=== PATIENT | female | born 1970 | race Caucasian/White ===

== ENCOUNTER → 2017-03-16 | Outpatient (CLI) | payer OTHER ==
--- NOTE | 2017-03-16 08:55 | REPMRS ---
Patient History The patient states she had a clinical breast exam in January 2017. No known family history of cancer. Digital Mammo Diagnostic Bilateral: March 16, 2017 - Exam #: [id number] Bilateral CC and MLO view(s) were taken. Technologist: Reina Lamb, Technologist Prior study comparison: February 10, 2016, bilateral digital mammo screening bilat performed at [facility]. September 27, 2013, left breast digital mammo diagnostic unilateral performed at [facility]. FINDINGS: There are scattered fibroglandular densities. There has been no change in the appearance of the mammogram from the prior studies. There is a mild amount of residual fibroglandular tissue which is fairly symmetric. There is no interval development of dominant mass, architectural distortion, or clustered microcalcification suggestive of malignancy. ASSESSMENT: BI-RADS/ACR category 1 mammogram. Negative. Recommendation Routine screening mammogram in 1 year (for women over age 40). This mammogram was interpreted with the aid of an FDA-approved computer-aided dectection system. Electronically Signed By: Michael Ritter MD 03/16/17 0855
[2017-03-16 10:32] LABS: FOLLICLE STIMULATING HORMONE 1.8 mIU/mL; PROLACTIN 7.3 NG/ML
== END ==
LOC: M LAB 08:16
PROVIDERS: ATTEND Nurse Practitioner Family
DX: Z12.31 Encounter for screening mammogram for malignant neoplasm of breast (principal); N64.4 Mastodynia
CPT/HCPCS: 36415; 83001; 83002; 84146; G0204

== ENCOUNTER → 2017-09-27 | Outpatient (REF) | payer OTHER ==
[2017-09-27 12:22] LABS: BASO # 0.1 10^3/uL (0.0-0.2); BASO % 0.7 % (0.0-1.0); EOS # 0.2 10^3/uL (0.0-0.50); EOS % 2.9 % (0.0-3.0); HEMATOCRIT 36.2 % (36.0-47.0); HEMOGLOBIN 11.6 g/dl (12.0-16.0); IMMATURE GRANULOCYTE % 0.4 % (0-0); LYMPH # 2.5 10^3/uL (1.5-4.5); LYMPH % 36.2 % (24.0-44.0); MEAN CORPUSCULAR HEMOGLOBIN 29.1 pg (27.0-33.0); MEAN CORPUSCULAR VOLUME 90.7 fl (80.0-96.0); MONO # 0.6 10^3/uL (0.0-0.8); MONO % 8.2 % (0.0-5.0); NEUTROPHILS # 3.5 10^3/uL (1.8-7.7); NEUTROPHILS % 51.6 % (36.0-66.0); PLATELET COUNT, AUTOMATED 332 10^3/uL (150-450); RED BLOOD COUNT 3.99 10^6/uL (4.00-5.40); RED CELL DISTRIBUTION WIDTH 14.6 % (11.5-14.5); WHITE BLOOD COUNT 6.8 10^3/uL (4.0-10.0)
[2017-09-27 12:55] LABS: ALBUMIN 3.5 GM/DL (3.2-5.2); ALBUMIN/GLOBULIN RATIO 0.97 (1.00-1.93); ALKALINE PHOSPHATASE 67 U/L (45-117); ALT/SGPT 42 U/L (12-78); ANION GAP 8 MEQ/L (8-16); AST/SGOT 38 U/L (7-37); BILIRUBIN,TOTAL 0.3 MG/DL (0.2-1.0); BLOOD UREA NITROGEN 12 MG/DL (7-18); CALCIUM LEVEL 8.7 MG/DL (8.5-10.1); CARBON DIOXIDE LEVEL 29 MEQ/L (21-32); CHLORIDE LEVEL 103 MEQ/L (98-107); CREATININE FOR GFR 0.71 MG/DL (0.55-1.02); FREE T4 1.14 NG/DL (0.76-1.46); GLOMERULAR FILTRATION RATE > 60.0 (>58); GLUCOSE, FASTING 83 MG/DL (70-105); POTASSIUM SERUM 4.4 MEQ/L (3.5-5.1); SODIUM LEVEL 140 MEQ/L (136-145); TOTAL PROTEIN 7.1 GM/DL (6.4-8.2)
[2017-09-27 13:16] LABS: ESTIMATED AVERAGE GLUCOSE 134 MG/DL (60-110); HEMOGLOBIN A1c 6.3 %
== END ==
LOC: M SFHCPLAZ 08:02
DX: F32.9 Major depressive disorder, single episode, unspecified (principal); E28.2 Polycystic ovarian syndrome; E03.9 Hypothyroidism, unspecified

== ENCOUNTER 2018-01-08 07:07 | Emergency (ER) | payer SELFPAY, OTHER | END 2018-01-08 07:57 | disposition home or self-care (01) | LOC: M ED 07:07 | DX: K08.89 Other specified disorders of teeth and supporting structures (principal); E03.9 Hypothyroidism, unspecified; E28.2 Polycystic ovarian syndrome; F41.9 Anxiety disorder, unspecified; F33.9 Major depressive disorder, recurrent, unspecified; Z79.899 Other long term (current) drug therapy; Z79.890 Hormone replacement therapy | CPT/HCPCS: 99282 ==

== ENCOUNTER → 2018-06-01 | Outpatient (REF) | payer OTHER | LOC: M SFHCPLAZ 07:59 | DX: E03.9 Hypothyroidism, unspecified (principal); R73.09 Other abnormal glucose ==

== ENCOUNTER → 2018-06-11 | Outpatient (CLI) | payer OTHER ==
[2018-06-11 17:53] LABS: ALBUMIN 3.9 GM/DL (3.2-5.2); ALBUMIN/GLOBULIN RATIO 1.15 (1.00-1.93); ALKALINE PHOSPHATASE 74 U/L (45-117); ALT/SGPT 37 U/L (12-78); ANION GAP 10 MEQ/L (8-16); AST/SGOT 26 U/L (7-37); BILIRUBIN,TOTAL 0.2 MG/DL (0.2-1.0); BLOOD UREA NITROGEN 15 MG/DL (7-18); CALCIUM LEVEL 9.2 MG/DL (8.5-10.1); CARBON DIOXIDE LEVEL 25 MEQ/L (21-32); CHLORIDE LEVEL 103 MEQ/L (98-107); CREATININE FOR GFR 0.79 MG/DL (0.55-1.30); FREE T4 1.07 NG/DL (0.76-1.46); GLOMERULAR FILTRATION RATE > 60.0 (>58); GLUCOSE, FASTING 106 MG/DL (70-100); SODIUM LEVEL 138 MEQ/L (136-145); THYROID STIMULATING HORMONE 0.834 uIU/ML (0.358-3.740); TOTAL PROTEIN 7.3 GM/DL (6.4-8.2)
== END ==
LOC: M WUC 14:18
DX: R73.09 Other abnormal glucose (principal); E03.9 Hypothyroidism, unspecified
CPT/HCPCS: 84443

== ENCOUNTER → 2018-06-18 | Outpatient (CLI) | payer OTHER | LOC: M RAD 08:18 | DX: M26.622 Arthralgia of left temporomandibular joint (principal) | CPT/HCPCS: 70330 ==

== ENCOUNTER → 2018-11-13 | Outpatient (REF) | payer MEDICAID ==
[~2018-11-13] MED LIST: ALPR0.25; AMOX500C PO; CITA40TA4; LEVO75TA4; LORA-243; METF500T4; NORCOTAB PO; TRAZ1TAB14
[2018-11-13 15:03] LABS: HEMOGLOBIN A1c 6.8 %
[2018-11-13 15:21] LABS: ALBUMIN 3.7 GM/DL (3.2-5.2); ALT/SGPT 39 U/L (12-78); BILIRUBIN,TOTAL 0.2 MG/DL (0.2-1.0); BLOOD UREA NITROGEN 10 MG/DL (7-18); CALCIUM LEVEL 8.6 MG/DL (8.5-10.1); CARBON DIOXIDE LEVEL 28 MEQ/L (21-32); CHLORIDE LEVEL 101 MEQ/L (98-107); CHOLESTEROL LEVEL 262 MG/DL (<200); CHOLESTEROL RISK RATIO 5.346 (<5); CREATININE FOR GFR 0.71 MG/DL (0.55-1.30); GLOMERULAR FILTRATION RATE > 60.0 (>58); GLUCOSE, FASTING 110 MG/DL (70-100); HDL CHOLESTEROL 49 MG/DL (>40); LDL CHOLESTEROL 142 MG/DL (<100); NON-HDL-C 213 MG/DL; POTASSIUM SERUM 4.3 MEQ/L (3.5-5.1); SODIUM LEVEL 137 MEQ/L (136-145); TOTAL PROTEIN 7.3 GM/DL (6.4-8.2); TRIGLYCERIDES LEVEL 353 MG/DL (<150)
== END ==
LOC: M SFHCPLAZ 11:45
PROVIDERS: ATTEND Nurse Practitioner Family
DX: E03.9 Hypothyroidism, unspecified (principal); R73.09 Other abnormal glucose; Z68.37 Body mass index [BMI] 37.0-37.9, adult

== ENCOUNTER → 2018-11-16 | Outpatient (CLI) | payer MEDICAID ==
--- NOTE | 2018-11-16 11:55 | REPMRS ---
Patient History The patient states she had a clinical breast exam in 2017. No known family history of cancer. Digital Mammo Screening Bilat: November 16, 2018 - Exam #: [id number] Bilateral CC and MLO view(s) were taken. Technologist: Rylee Noble Technologist Prior study comparison: March 16, 2017, digital mammo diagnostic bilateral performed at [facility]. February 10, 2016, bilateral digital mammo screening bilat performed at [facility]. FINDINGS: There are scattered fibroglandular densities. There has been no change in the appearance of the mammogram from the prior studies. There is a mild amount of residual fibroglandular tissue which is fairly symmetric. There is no interval development of dominant mass, architectural distortion, or clustered microcalcification suggestive of malignancy. Scattered lymph nodes are seen in the right axilla. There is a benign appearing intramammary node in the upper outer quadrant of the left breast. 3-D tomosynthesis shows no additional findings. The patient's Tyrer-Cuzick lifetime risk assessment score is 10.7 %. No significant changes when compared with prior studies. Assessment: BI-RADS/ACR category 2 mammogram. Benign Findings. Recommendation Routine screening mammogram in 1 year (for women over age 40). This mammogram was interpreted with the aid of an FDA-approved computer-aided dectection system. A. Negative x-ray reports should not delay biopsy if a dominant or clinically suspicious mass is present. B. Four to eight percent of cancers are not identified by mammography. C. Adenosis and dense breast may obscure an underlying neoplasm. Electronically Signed By: Cesario Milligan MD 11/16/18 4027
--- NOTE | 2018-11-16 12:09 | REP ---
LUMBAR SPINE, FIVE VIEWS: HISTORY: Back pain. There is on acute fracture or subluxation. The L3-4 and L4-5 intervertebral discs are decreased in height consistent with disc degeneration. There is narrowing of the L4-5 and L5-S1 facet joints. IMPRESSION: Degenerative change as described above. Electronically Signed by Reuben Loco MD 11/16/2018 12:11 P
== END ==
LOC: M RAD 10:29
PROVIDERS: ATTEND Nurse Practitioner Family
DX: Z12.31 Encounter for screening mammogram for malignant neoplasm of breast (principal)

== ENCOUNTER → 2019-03-30 | Outpatient (CLI) | payer OTHER ==
[~2019-03-30] MED LIST changes: +HYDR-3715 PO; -NORCOTAB PO
[2019-03-30 13:24] LABS: ALBUMIN 3.8 GM/DL (3.2-5.2); ALT/SGPT 34 U/L (12-78); BILIRUBIN,TOTAL 0.4 MG/DL (0.2-1.0); BLOOD UREA NITROGEN 11 MG/DL (7-18); CALCIUM LEVEL 8.8 MG/DL (8.5-10.1); CARBON DIOXIDE LEVEL 28 MEQ/L (21-32); CHLORIDE LEVEL 104 MEQ/L (98-107); CHOLESTEROL LEVEL 157 MG/DL (<200); CHOLESTEROL RISK RATIO 2.754 (<5); CREATININE FOR GFR 0.82 MG/DL (0.55-1.30); GLOMERULAR FILTRATION RATE > 60.0 (>58); GLUCOSE, FASTING 97 MG/DL (70-100); HDL CHOLESTEROL 57 MG/DL (>40); LDL CHOLESTEROL 68 MG/DL (<100); NON-HDL-C 100 MG/DL; POTASSIUM SERUM 4.5 MEQ/L (3.5-5.1); SODIUM LEVEL 140 MEQ/L (136-145); TOTAL PROTEIN 6.9 GM/DL (6.4-8.2); TRIGLYCERIDES LEVEL 161 MG/DL (<150)
[2019-03-30 13:27] LABS: HEMOGLOBIN A1c 6.7 %
[2019-03-30 13:45] LABS: CREATININE, URINE 75.4 MG/DL; MAU/CREAT RATIO 6.6 MCG/MG (0.0-30.0)
== END ==
LOC: M WUC 09:58
PROVIDERS: ATTEND Nurse Practitioner Family
DX: E78.2 Mixed hyperlipidemia (principal); E11.9 Type 2 diabetes mellitus without complications; E03.9 Hypothyroidism, unspecified

== ENCOUNTER → 2019-05-29 | Outpatient (REF) | payer OTHER ==
[~2019-05-29] MED LIST changes: +METF-791; -METF500T4
== END ==
LOC: M SFHCPLAZ 07:41
PROVIDERS: ATTEND Nurse Practitioner Family
DX: E03.9 Hypothyroidism, unspecified (principal)

== ENCOUNTER → 2019-09-11 | Outpatient (REF) | payer OTHER ==
[2019-09-11 12:10] LABS: HEMOGLOBIN A1c 6.8 %
== END ==
LOC: M SFHCPLAZ 10:29
PROVIDERS: ATTEND Family Medicine
DX: E11.9 Type 2 diabetes mellitus without complications (principal)

== ENCOUNTER 2020-02-21 10:40 | Emergency (ER) | payer OTHER ==
[~2020-02-21] VITALS: Ht 160 cm; Wt 101.0 kg
[~2020-02-21 10:40] MED LIST changes: -METF-791; +METF-838
[2020-02-21] MEDS ORDERED: FLUTISP PO (10:53)
[2020-02-21] MEDS ORDERED: TIZA4TAB4 PO (10:53)
[2020-02-21] MEDS ORDERED: NABU-119 PO (10:53)
[2020-02-21] MEDS ORDERED: NAPR-885 PO (10:53)
[2020-02-21] MEDS ORDERED: PERCOCET 5MG/325MG TAB PO ONE (11:15)
[2020-02-21] MEDS ORDERED: MEDR4PAK PO (13:01)
[2020-02-21] MEDS ORDERED: PERC5TAB12 PO (13:02)
[2020-02-21 13:16] VITALS: BP 138/74
--- NOTE | 2020-02-21 13:57 | REP ---
REASON: Pain and swelling. TECHNIQUE: Multiple ultrasonographic images of the deep venous structures of the thigh were obtained from the common femoral vein to the popliteal vein along with Doppler interrogation and color flow Doppler images. FINDINGS: There is no abnormal echogenic material seen within any of the visualized deep venous structures that would suggest acute thrombosis. Coaptation is unremarkable throughout. Doppler interrogation shows an expected response to respiratory variability and augmentation. The color flow images show what appears to be a normal vascular pattern throughout. IMPRESSION: There is no ultrasonographic evidence of deep venous thrombosis involving any of the visualized deep venous structures of the left thigh, as described above. Electronically Signed by Zohaib Shaffer DO 02/21/2020 03:10 P
== END 2020-02-21 13:18 | disposition home or self-care (01) ==
LOC: M ED 10:40
DX: M79.662 Pain in left lower leg (principal); R22.42 Localized swelling, mass and lump, left lower limb; I10 Essential (primary) hypertension; E11.9 Type 2 diabetes mellitus without complications; I25.9 Chronic ischemic heart disease, unspecified; Z79.899 Other long term (current) drug therapy

== ENCOUNTER → 2020-03-12 | Outpatient (REF) | payer OTHER ==
[~2020-03-12] MED LIST changes: +FLUTISP PO; +MEDR4PAK PO; +NABU-119 PO; +NAPR-885 PO; +PERC5TAB12 PO; +TIZA4TAB4 PO
[2020-03-12 11:44] LABS: ALBUMIN 3.5 GM/DL (3.2-5.2); ALT/SGPT 39 U/L (12-78); BILIRUBIN,TOTAL 0.3 MG/DL (0.2-1.0); BLOOD UREA NITROGEN 12 MG/DL (7-18); CARBON DIOXIDE LEVEL 29 MEQ/L (21-32); CHLORIDE LEVEL 103 MEQ/L (98-107); CHOLESTEROL LEVEL 245 MG/DL (<200); CHOLESTEROL RISK RATIO 4.298 (<5); CREATININE FOR GFR 0.82 MG/DL (0.55-1.30); FREE T4 1.15 NG/DL (0.76-1.46); GLOMERULAR FILTRATION RATE > 60.0 (>58); GLUCOSE, FASTING 99 MG/DL (70-100); HDL CHOLESTEROL 57 MG/DL (>40); LDL CHOLESTEROL 133 MG/DL (<100); NON-HDL-C 188 MG/DL; POTASSIUM SERUM 4.5 MEQ/L (3.5-5.1); SODIUM LEVEL 139 MEQ/L (136-145); TRIGLYCERIDES LEVEL 276 MG/DL (<150)
[2020-03-12 13:00] LABS: MALB URINE SIEMENS 14.1 MG/L; MAU/CREAT RATIO 5.1 MCG/MG (0.0-30.0)
== END ==
LOC: M SFHCPLAZ 08:17
PROVIDERS: ATTEND Family Medicine
DX: E11.69 Type 2 diabetes mellitus with other specified complication (principal); E78.2 Mixed hyperlipidemia; E03.9 Hypothyroidism, unspecified

== ENCOUNTER → 2020-03-16 | Outpatient (CLI) | payer OTHER ==
--- NOTE | 2020-03-17 10:01 | ECHO ---
DATE OF PROCEDURE: 03/16/2020 REFERRING PHYSICIAN: Angelica Elam MD. INDICATION: Abnormal ECG. HEIGHT: 5 feet, 3 inches. WEIGHT: 210 pounds. 2D MEASUREMENTS: LVOT - 2.0 cm Aortic root - 2.7 cm Left atrium - 3.4 cm Ventricular septum - 1.02 cm Posterior wall - 1.01 cm Left ventricle diastole - 3.7 cm Inferior vena cava - 1.8 cm DOPPLER MEASUREMENTS: No aortic regurgitation. Aortic valve velocity - 119 cm/s LVOT velocity - 102 cm/s LVOT VTI - 22.0 cm Trace amount of regurgitation. Mitral E velocity - 83.6 cm/s Mitral A velocity - 89.5 cm/s Mitral deceleration time - 206 ms Very mild tricuspid regurgitation. Estimated right ventricle systolic pressure 26-32 mmHg. Estimated right atrial pressure 5-10 mmHg. No pulmonic regurgitation. Pulmonary acceleration time 180 ms. MITRAL ANNULAR TISSUE DOPPLER: E prime septal 6.7 cm/s E prime lateral 7.4 cm/s DESCRIPTION: Rhythm was sinus. Image quality was fair. No pericardial effusion. This is a 2D, M-mode, color flow Doppler and pulse-wave Doppler examination including mitral annular tissue Doppler. CONCLUSIONS: 1. Normal left ventricle internal dimensions and wall thickness. Normal regional LV wall motion and wall thickening. Normal LV systolic function. LVEF 65% by visual estimate. Grade 1 LV diastolic dysfunction. 2. Otherwise normal appearing echocardiogram Doppler findings.
== END ==
LOC: M CARPUL 09:54
PROVIDERS: ATTEND Family Medicine
DX: R94.31 Abnormal electrocardiogram [ECG] [EKG] (principal)

== ENCOUNTER → 2020-03-19 | Outpatient (CLI) | payer OTHER ==
--- NOTE | 2020-03-19 10:25 | REP ---
MRI lumbar spine: 03/19/2020. Indication: Lumbar radiculopathy. Technique: Multiplanar short and long TR sequences of the lumbar spine were performed without IV Gadolinium. Comparison: 12/23/2014. Findings: Vertebral body alignment is anatomic. Disc dessication is present at L4/L5 and to a lesser extent L5/S1. No worrisome marrow or cord signal abnormalities are detected. The paraspinal soft tissues are unremarkable. L1/L2, L2/L3 and L3/L4: Unremarkable. L4/L5: There is a left paracentral large free disc fragment/sequestration with significant caudal migration of 1.9 cm. There is extension of the disc fragment into the left neural foramen. L5/S1: There is a left lateral/foraminal disc extrusion with mild caudal migration. There is moderate to severe narrowing of the left neural foramen. The disc herniation does contact but not significantly displace the left S1 nerve root within the lateral recess. The right neural foramen is patent. Impression: Large L4/L5 disc sequestration which has migrated caudally as described. Left foraminal L5/S1 disc herniation as described. Electronically Signed by Garry Lord DO 03/19/2020 10:17 A
== END ==
LOC: M RAD 07:46
PROVIDERS: ATTEND Family Medicine
DX: M54.32 Sciatica, left side (principal); M51.26 Other intervertebral disc displacement, lumbar region

== ENCOUNTER 2020-04-10 08:13 | Day surgery (SDC) | payer OTHER ==
[~2020-04-10] VITALS: Ht 160 cm; Wt 95.2 kg
[~2020-04-10 08:13] MED LIST changes: +ALLE1TAB23 PO; +ATOR40TA75 PO; -CITA40TA4; +CITA40TA4 PO; +GABA-845 PO; +JARD1TAB PO; -LEVO75TA4; +LEVO75TA4 PO; +LIDOCAINE 2% 100MG/5ML SDV (FOR ANES.) As Ordered ONE; +MIDAZOLAM INJ 2MG/2ML VIAL (J2250 PER 1MG) As Ordered ONE; +MULTCAP PO; -NABU-119 PO; +NABU-53 PO; +ONDANSETRON 4MG/2ML VIAL As Ordered ONE; +ROCURONIUM BROMIDE 50 MG/5 ML VIAL As Ordered ONE; -TRAZ1TAB14; +TRAZ1TAB14 PO; +dexameTHASONE 4 MG/ML 1ML VIAL (J1100 PER 1MG) As Ordered ONE; +fentaNYL 250 MCG/5 ML INJECTION (J3010) As Ordered ONE; +propofoL 200 MG/20 ML VIAL As Ordered ONE
[2020-04-10] MEDS ORDERED: PERCOCET 5MG/325MG TAB PO ONE (09:00)
[2020-04-10] MEDS ORDERED: ceFAZolin SOD 2 GM in IV 1 EA IV ONE ×2 (09:00→15:00)
[2020-04-10] MEDS ORDERED: GABAPENTIN 300 MG CAP PO ONE (09:00)
[2020-04-10] MEDS ORDERED: CelecoXIB (CeleBREX) 100 MG CAP PO ONE (09:00)
[2020-04-10] MEDS ORDERED: BUPIVACAINE HCL 0.25% 10ML VIAL As Ordered ONE (09:34)
[2020-04-10] MEDS ORDERED: TRANEXAMIC ACID 100 MG/ML 10ML VIAL As Ordered ONE (09:34)
[2020-04-10] MEDS ORDERED: THROMBIN SOLN 20,000 UNITS KIT As Ordered ONE (09:34)
[2020-04-10] MEDS ORDERED: BUPIVACAINE/EPIN 0.5% 30 ML VIAL As Ordered ONE (09:34)
[2020-04-10] MEDS ORDERED: EPINEPHrine INJ 1 MG/ML 1ML AMP As Ordered ONE (09:34)
[2020-04-10] MEDS ORDERED: BACITRACIN PWD 50,000 UNITS VIAL As Ordered ONE (09:35)
[2020-04-10] MEDS ORDERED: BUPIVACAINE LIPOSOME/PF 1.3% 20ML VIAL (13.3MG/ML)(EXPAREL)(C9290 PER1MG) As Ordered ONE (09:35)
[2020-04-10] MEDS ORDERED: ePHEDrine SULFATE 25 MG/5 ML(5MG/ML) SYRINGE As Ordered ONE (11:03)
[2020-04-10] MEDS ORDERED: SUGAMMADEX SODIUM 500 MG/5 ML VIAL (BRIDION) As Ordered ONE (11:03)
[2020-04-10] MEDS ORDERED: ROCURONIUM BROMIDE 50 MG/5 ML VIAL As Ordered ONE (11:04)
--- NOTE | 2020-04-10 12:08 | REP ---
INTRAOPERATIVE PORTABLE LATERAL VIEW OF THE LUMBAR SPINE: There is a probe seen posteriorly at the L5-S1 level. Electronically Signed by Zohaib Shaffer DO 04/10/2020 04:59 P
[2020-04-10] MEDS ORDERED: PHENYLephrine HCL 500 MCG/5 ML (100MCG/ML) SYRINGE (J2370) As Ordered ONE (12:31)
[2020-04-10] MEDS ORDERED: PROMETHAZINE INJ 25 MG/ML VIAL (J2550) IV PRN (13:15)
[2020-04-10] MEDS ORDERED: PERCOCET 5MG/325MG TAB PO PRN (13:15)
[2020-04-10] MEDS ORDERED: LR 1,000 ML IV SCH ×2 (13:15→13:45)
[2020-04-10] MEDS ORDERED: fentaNYL 100 MCG/2 ML INJECTION (J3010) As Ordered ONE (13:35)
[2020-04-10] MEDS: fentaNYL 100 MCG/2 ML INJECTION (J3010) IV PRN ×6 (13:40→14:17)
[2020-04-10] MEDS ORDERED: oxyCODONE 5MG TAB PO PRN (13:45)
[2020-04-10] MEDS ORDERED: MEPERIDINE INJ 25 MG/ML VIAL (J2175) IV PRN (13:45)
[2020-04-10] MEDS ORDERED: ONDANSETRON 4MG/2ML VIAL IV PRN (13:45)
[2020-04-10] MEDS ORDERED: METOCLOPRAMIDE INJ 10MG/2ML VIAL (J2765 PER 1) IV PRN (13:45)
[2020-04-10] MEDS ORDERED: HYDROMORPHONE HCL 0.5 MG/ 0.5 ML SYRINGE (J1170 PER 1) As Ordered ONE (14:22)
[2020-04-10] MEDS: HYDROMORPHONE HCL 0.5 MG/ 0.5 ML SYRINGE (J1170 PER 1) IV PRN ×3 (14:27→14:44)
[2020-04-10 15:20] VITALS: BP 108/72
[2020-04-10 16:05] VITALS: BP 113/71
[2020-04-10] MEDS: MORPHINE 4 MG/ML 1ML VIAL/SYRINGE (J2270) IV PRN ×2 (16:16→20:03)
[2020-04-10 17:00] VITALS: BP 100/63
[2020-04-10] MEDS: PERCOCET 5MG/325MG TAB PO PRN ×2 (17:47→22:02)
[2020-04-10] MEDS: HumaLOG INSULIN (NovoLOG) PER UNIT SC SCH (17:48)
[2020-04-10] MEDS: METAMUCIL (PSYLLIUM) PACKET PO SCH (17:48)
[2020-04-10 17:59] VITALS: O2SAT 98
[2020-04-10 18:00] VITALS: BP 91/50
[2020-04-10 20:00] VITALS: BP 106/64
[2020-04-10] MEDS ORDERED: HumaLOG INSULIN (NovoLOG) PER UNIT SC SCH (21:00)
[2020-04-10] MEDS: **UNRESOLVED NON-FORMULARY MED ORDER XX SCH (21:14)
[2020-04-11] MEDS: PERCOCET 5MG/325MG TAB PO PRN ×3 (01:57→09:29)
[2020-04-11 02:06] VITALS: BP 104/64
[2020-04-11 02:53] VITALS: O2SAT 95
[2020-04-11 05:57] VITALS: BP 104/64
[2020-04-11] MEDS ORDERED: PERC5TAB12 PO (06:45)
[2020-04-11] MEDS: HumaLOG INSULIN (NovoLOG) PER UNIT SC SCH (07:30)
[2020-04-11] MEDS: **UNRESOLVED NON-FORMULARY MED ORDER XX SCH (08:29)
[2020-04-11] MEDS: METAMUCIL (PSYLLIUM) PACKET PO SCH (08:30)
[2020-04-11 10:00] VITALS: BP 103/55
--- NOTE | 2020-08-04 11:39 | RO ---
DATE OF OPERATION: 04/10/2020 PREOPERATIVE DIAGNOSIS: Lumbar spinal stenosis secondary to massive and inferiorly migrated left-sided disk extrusion at L4-5. POSTOPERATIVE DIAGNOSIS: PROCEDURE PERFORMED: Left unilateral laminectomy of the L5 level. This was necessary because of the inferior migration of this large disk herniation. SURGEON: Amanuel Wright MD MANAGER PROPERTY: DESTINY Deras ANESTHESIA: General. ESTIMATED BLOOD LOSS: Less than 40 ml COMPLICATIONS: None. INDICATIONS: Intractable discomfort radiating down the left lower extremity. MRI evidence of severe lumbar spinal stenosis secondary to migrated disk extrusion at L4-5. Consent reviewed in detail including antonio discussion of pathology involved, procedure proposed, alternatives including doing nothing and risks including, but not limited to pain, failure, infection, incomplete relief of symptoms, need for additional surgery and other issues, the patient agrees to proceed. OPERATIVE COURSE: Identified in the holding area. Site and side verified. Brought to the operative room, positioned for exposure of the lumbar spine once axillary roll was utilized. Once I and the social director were comfortable with the patient's positioning, she was then sterilely prepped and draped in the usual fashion. For exposure of the LS spine, we utilized a Сергей frame. Once she was prepped and draped, an incision was outlined with a marking pen. I first utilized 3.5 loupe magnification. The dissection continued down the lamina of 5. A divot was drilled in the lamina of 5. Cross-table lateral was taken to verify our level. The Leksell was utilized to remove the posterior lamina of 5. Next, at this stage, the operating microscope was draped and brought in for additional portion of the procedure. Next, I looked through oculars on the patients left; the physician employment legal assistant looked through oculars on the patient's right. Next, this facilitated safety for the high-speed bur, which was utilized to implement a left unilateral laminectomy superior through 4 to the bare area of 4 inferiorly through the entire lamina of 5 on the left side. This allowed elevation of the ligamentum flavum. Next, the traversing nerve root was sweep medially. This was removed in piecemeal fashion. An extremely large disk herniation was encountered and able to be retrieved in piecemeal fashion and sent to pathology for further evaluation. Next, once the disk was removed, hemostasis was accomplished with thrombin, Gelfoam and bipolar cautery, irrigation was accomplished, all retractors were removed. Posterior lumbar fascia was re-approximated. Deep dermis was re-approximated. Prineo dressing was placed on skin. The patient was log rolled to hospital bed, extubated, moved to recovery room in good condition. For further details, please refer to the medical record. ADDENDUM: Unfortunately the [employer] system was obliterated due to ransomware attack and we needed to reconstruct her operative note from memory and what limited written reports there were. I clarify that the employment legal assistant for this procedure was Osmani Pulido PA-C, not Gardenia Cortes. Also, clarify, in addition to the left unilateral laminectomy of the L5 level we extended the left unilateral laminectomy through the lamina of 4 through the bare area of 4; she had a left unilateral laminectomy of L5 and additional level left unilateral laminectomy L4. This was necessary because of the large size of the disk herniation to extend to the disk annulus but also inferiorly because the large disk herniation was inferiorly migrated and required additional decompression compared to regular laminotomy. For further details please refer to the medical records. ADDENDUM DICTATED: ETTA 08/05/2020 1200 ADDENDUM TRANSCRIBED: [facility] 08/06/2020 1037 MTDD
== END 2020-04-11 11:40 | disposition home or self-care (01) ==
LOC: M SDC 08:13 → M MS5PR 15:25 → M SDC 04-11 11:40
PROVIDERS: ATTEND Orthopaedic Surgery
DX: M51.26 Other intervertebral disc displacement, lumbar region (principal); E11.9 Type 2 diabetes mellitus without complications; E03.9 Hypothyroidism, unspecified; F41.9 Anxiety disorder, unspecified; F32.9 Major depressive disorder, single episode, unspecified; Z79.899 Other long term (current) drug therapy
CPT/HCPCS: 36415; 63030; 72100; 81025; 86850; 86900; 86901; 88304; 96361; 96365; 96375; 96376; J0690; J1100; J1170; J2250; J2270; J2370; J2405; J3010

== ENCOUNTER → 2020-06-10 | Outpatient (CLI) | payer OTHER ==
[~2020-06-10] MED LIST changes: -LIDOCAINE 2% 100MG/5ML SDV (FOR ANES.) As Ordered ONE; -MIDAZOLAM INJ 2MG/2ML VIAL (J2250 PER 1MG) As Ordered ONE; -ONDANSETRON 4MG/2ML VIAL As Ordered ONE; -ROCURONIUM BROMIDE 50 MG/5 ML VIAL As Ordered ONE; -dexameTHASONE 4 MG/ML 1ML VIAL (J1100 PER 1MG) As Ordered ONE; -fentaNYL 250 MCG/5 ML INJECTION (J3010) As Ordered ONE; -propofoL 200 MG/20 ML VIAL As Ordered ONE
[2020-06-10 13:38] LABS: HEMATOCRIT 33.2 % (36.0-47.0); HEMOGLOBIN 10.5 g/dl (12.0-15.5); MEAN CORPUSCULAR HGB CONC 31.6 g/dl (32.0-36.5); MEAN CORPUSCULAR VOLUME 91.7 fl (80.0-96.0); PLATELET COUNT, AUTOMATED 311 10^3/uL (150-450); RED BLOOD COUNT 3.62 10^6/uL (4.00-5.40); WHITE BLOOD COUNT 6.8 10^3/uL (4.0-10.0)
[2020-06-10 14:19] LABS: ALBUMIN 3.2 GM/DL (3.2-5.2); ALT/SGPT 51 U/L (12-78); BILIRUBIN,TOTAL 0.2 MG/DL (0.2-1.0); BLOOD UREA NITROGEN 8 MG/DL (7-18); CALCIUM LEVEL 8.8 MG/DL (8.5-10.1); CARBON DIOXIDE LEVEL 28 MEQ/L (21-32); CHLORIDE LEVEL 106 MEQ/L (98-107); CREATININE FOR GFR 0.82 MG/DL (0.55-1.30); GLOMERULAR FILTRATION RATE > 60.0 (>58); GLUCOSE, FASTING 191 MG/DL (70-100); NT-PRO BNP 52 PG/ML (<125); POTASSIUM SERUM 4.6 MEQ/L (3.5-5.1); SODIUM LEVEL 140 MEQ/L (136-145); TOTAL PROTEIN 6.5 GM/DL (6.4-8.2)
--- NOTE | 2020-06-25 07:26 | REPPI ---
CHEST X-RAY: 06/10/20 CLINICAL: Chest pain. Heartburn. TECHNIQUE: PA and lateral. FINDINGS: Mediastinum and cardiac silhouette normal. Lung juarez clear. No consolidation, effusion, or pneumothorax. Skeletal structures intact. IMPRESSION: No acute cardiopulmonary process or focal consolidation. MTDD
== END ==
LOC: M PLAIMG 08:39 → M PLALAB 08:39
PROVIDERS: ATTEND Physician Assistant
DX: R22.43 Localized swelling, mass and lump, lower limb, bilateral (principal)

== ENCOUNTER → 2020-08-27 | Outpatient (REF) | payer OTHER ==
[2020-08-27 15:07] LABS: HEMATOCRIT 34.7 % (36.0-47.0); HEMOGLOBIN 10.7 g/dl (12.0-15.5); MEAN CORPUSCULAR HEMOGLOBIN 27.2 pg (27.0-33.0); MEAN CORPUSCULAR HGB CONC 30.8 g/dl (32.0-36.5); MEAN CORPUSCULAR VOLUME 88.1 fl (80.0-96.0); PLATELET COUNT, AUTOMATED 333 10^3/uL (150-450); RED BLOOD COUNT 3.94 10^6/uL (4.00-5.40); WHITE BLOOD COUNT 7.9 10^3/uL (4.0-10.0)
[2020-08-27 17:14] LABS: PERCENT SATURATION 7.7 % (13.2-45.0)
[2020-08-27 20:14] LABS: HEMOGLOBIN A1c 6.9 %
== END ==
LOC: M SFHCPLAZ 10:51
PROVIDERS: ATTEND Family Medicine
DX: D64.9 Anemia, unspecified (principal); E11.69 Type 2 diabetes mellitus with other specified complication

== ENCOUNTER → 2020-10-26 | Outpatient (REF) | payer OTHER, MEDICAID | LOC: M SFHCPLAZ 09:50 | PROVIDERS: ATTEND Physician Assistant | DX: R05 Cough (principal) ==

== ENCOUNTER → 2020-12-01 | Outpatient (CLI) | payer OTHER ==
--- NOTE | 2020-12-01 14:25 | REP ---
INDICATION: VENOUS INSUFFICIENCY COMPARISON: 04/05/2016 TECHNIQUE: Ritter scale and color Doppler evaluation using linear high frequency transducer along with reflux evaluation. FINDINGS: Ultrasound examination of the right and left lower extremity deep venous structures from the common femoral vein to the popliteal vein demonstrates normal compressibility flow and wave patterns in response to respiration and augmentation. There is no evidence for deep venous thrombosis. Right lower extremity demonstrates no reflux. Small collateral vessels are again identified from the mid greater saphenous vein at the level of the thigh. Left lower extremity demonstrates no reflux. IMPRESSION: No evidence for deep venous thrombosis. Stable small collateral vessels off the greater saphenous vein unchanged. <Electronically signed by Freddy Henderson > 12/01/20 9428
== END ==
LOC: M RAD 12:22
PROVIDERS: ATTEND Physician Assistant
DX: I87.2 Venous insufficiency (chronic) (peripheral) (principal)

== ENCOUNTER → 2021-02-17 | Outpatient (CLI) | payer OTHER ==
[~2021-02-17] MED LIST changes: +GABA-283 PO; -GABA-845 PO; -NABU-53 PO; +NABU-73 PO
--- NOTE | 2021-02-17 12:01 | REPMRS ---
Patient History The patient states she had a clinical breast exam in January 2021. No known family history of cancer. Patient states no breast complaints today. Patient has signed MRS History Sheet. Digital Woman Screen Mammo: February 17, 2021 - Exam #: [id number] Bilateral CC and MLO view(s) were taken. Technologist: Rylee Noble Technologist Prior study comparison: November 16, 2018, bilateral digital mammo screening bilat, performed at [facility]. March 16, 2017, digital mammo diagnostic bilateral, performed at [facility]. February 10, 2016, bilateral digital mammo screening bilat, performed at [facility]. FINDINGS: There are scattered fibroglandular densities. The Volpara volumetric breast density category is:B. There is a stable intramammary lymph node on the left. There has been no change in the appearance of the mammogram from the prior studies. There is a mild amount of scattered fibroglandular density which is fairly symmetric. There is no interval development of dominant mass, architectural distortion, or grouped microcalcification suggestive of malignancy. 3-D tomosynthesis shows no additional findings. Assessment: BI-RADS/ACR category 2 mammogram. Benign Findings. Recommendation Routine screening mammogram of both breasts in 1 year (for women over age 40). This patient's [facility] Lifetime Breast Cancer Risk is estimated at 10.3 %. This mammogram was interpreted with the aid of an FDA-approved computer-aided dectection system. Electronically Signed By: Edwardo Villeda MD 02/17/21 4445
== END ==
LOC: M WHC 08:27
PROVIDERS: ATTEND Obstetrics & Gynecology
DX: Z12.31 Encounter for screening mammogram for malignant neoplasm of breast (principal)

== ENCOUNTER → 2021-02-17 | Outpatient (REF) | payer OTHER, MEDICAID | LOC: M SFHCWAGY 12:37 | PROVIDERS: ATTEND Obstetrics & Gynecology | DX: Z12.4 Encounter for screening for malignant neoplasm of cervix (principal); Z01.419 Encounter for gynecological examination (general) (routine) without abnormal findings ==

== ENCOUNTER → 2021-03-10 | Outpatient (CLI) | payer OTHER ==
--- NOTE | 2021-03-10 16:01 | REP ---
INDICATION: N93.9 AUB. COMPARISON: 08/26/2015 the latest prior TECHNIQUE: transvesical and transvaginal scanning FINDINGS: The uterus measures 14.5 x 6 x 7.5 cm. The parenchymal echo pattern is heterogenous without discrete masses. Is essentially unchanged from the prior exam. The endometrial echo complex measures 1 cm in thickness and is within normal limits essentially unchanged from the prior exam. Neither ovary could be visualized transvesical ER transvaginally. Urinary bladder measures 14 x 8 x 8 cm. IMPRESSION: No significant change in appearance of the uterus. Is a somewhat enlarged with early myomatous change suspected. Neither ovary could be visualized. <Electronically signed by Zohaib Shaffer > 03/10/21 4197
== END ==
LOC: M WHC 12:23
PROVIDERS: ATTEND Obstetrics & Gynecology
DX: N93.9 Abnormal uterine and vaginal bleeding, unspecified (principal)

== ENCOUNTER → 2021-04-20 | Outpatient (CLI) | payer MEDICAID, OTHER ==
[2021-04-20 10:00] LABS: BASO # 0.1 10^3/uL (0.0-0.2); BASO % 0.6 % (0.0-1.0); EOS # 0.2 10^3/uL (0.0-0.5); EOS % 2.4 % (0.0-3.0); HEMATOCRIT 37.8 % (36.0-47.0); HEMOGLOBIN 12.3 g/dl (12.0-15.5); LYMPH # 2.5 10^3/uL (1.5-5.0); LYMPH % 27.6 % (24.0-44.0); MEAN CORPUSCULAR HEMOGLOBIN 29.7 pg (27.0-33.0); MEAN CORPUSCULAR HGB CONC 32.5 g/dl (32.0-36.5); MEAN CORPUSCULAR VOLUME 91.3 fl (80.0-96.0); MONO # 0.7 10^3/uL (0.0-0.8); MONO % 7.4 % (2.0-8.0); NEUTROPHILS # 5.6 10^3/uL (1.5-8.5); NEUTROPHILS % 61.7 % (36.0-66.0); PLATELET COUNT, AUTOMATED 331 10^3/uL (150-450); RED BLOOD COUNT 4.14 10^6/uL (4.00-5.40); WHITE BLOOD COUNT 9.1 10^3/uL (4.0-10.0)
--- NOTE | 2021-04-20 10:09 | REP ---
INDICATION: RUQ PAIN- LABS FIRST. COMPARISON: None. TECHNIQUE: Standard right upper quadrant sonography with some color imaging. FINDINGS: Liver is homogeneous but hyperechoic suggesting diffuse fatty infiltration. No hepatomegaly, hepatic mass nor intrahepatic biliary dilatation. No adjacent ascites. Gallbladder is unremarkable. Common duct is 3.3 mm without a filling defect. Pancreas seen in part is somewhat hyperechoic but without mass, abnormal calcification or peripancreatic fluid collection. The right kidney is 9.6 x 5.7 x 4.5 cm. No visible mass or stone, limited evaluation of the kidney. IMPRESSION: 1. Diffuse fatty infiltration of the liver without hepatomegaly, biliary dilatation or hepatic mass. No ascites. 2. No gallstone. Normal gallbladder wall thickness. 3. Common duct 3.3 mm without a filling defect. Visualized pancreas is hyperechoic but without focal lesion. No peripancreatic fluid. 4. Right kidney limited evaluation but no acute finding.. <Electronically signed by Cesario Milligan > 04/20/21 8082
[2021-04-20 10:32] LABS: ALBUMIN 3.6 GM/DL (3.2-5.2); ALT/SGPT 28 U/L (12-78); BILIRUBIN,TOTAL 0.4 MG/DL (0.2-1.0); BLOOD UREA NITROGEN 12 MG/DL (7-18); CARBON DIOXIDE LEVEL 26 MEQ/L (21-32); CHLORIDE LEVEL 107 MEQ/L (98-107); CREATININE FOR GFR 0.81 MG/DL (0.55-1.30); GLOMERULAR FILTRATION RATE > 60.0 (>58); GLUCOSE, FASTING 86 MG/DL (70-100); LIPASE 151 U/L (73-393); POTASSIUM SERUM 4.5 MEQ/L (3.5-5.1); SODIUM LEVEL 141 MEQ/L (136-145); TOTAL PROTEIN 7.4 GM/DL (6.4-8.2)
== END ==
LOC: M RAD 09:13
PROVIDERS: ATTEND Physician Assistant
DX: K76.0 Fatty (change of) liver, not elsewhere classified (principal)

== ENCOUNTER 2021-09-04 20:18 | Emergency (ER) | payer OTHER, MEDICAID ==
[~2021-09-04] VITALS: Ht 160 cm; Wt 98.7 kg
--- OUTSIDE RECORDS SUMMARY | 2021-09-04 20:29 | CCD ---
Author Author [facility] Organization [facility] Address Unknown Phone Unavailable Care Team Providers Care Site Reliability Engineer Name Role Phone Moshe Watson Unavailable PROBLEMS Type Condition ICD9-CM Code [id number] Code Onset Dates Condition S tatus W/U Status Risk SNOMED Code Notes Problem Hypothyroidism (acquired) E03.9 Active confirmed 543772017 Problem Edema of both legs R60.0 Active confirmed 1 09385361 Problem Anxiety F41.9 Active confirmed 69047676 Problem PCOS (polycystic ovarian syndrome) E28.2 Activ e confirmed 41032345 Problem Mixed hyperlipidemia E78.2 Active confirmed 679899201 Problem Insomnia G47.00 Active confirmed 896783405 Problem Obesity, unspecified E66.9 Active confirmed 943279638 Problem Type 2 diabetes mellitus with other specified complication E11.69 Active confirmed 38657660 Problem Left leg paresthesias R20.2 Active confirmed 79042613383864108 Problem Acute right-sided low back pain with right-sided sciatica M54.41 Active confirmed 190396044 Problem Severe episode of recurrent major depressive disorder, without psychotic features F33.2 Active confirmed 75049579 Problem Right sided sciatica M54.31 Active confirmed 78570817 Problem Seasonal allergies J30.2 Active confirmed 4 74840894 Problem Sciatica of left side M54.32 Active confirmed 38038858 Problem Acute left-sided low back pain with left-sided sciatica M54.42 Active confirmed 501463186 Problem Insomnia, unspecified type G47.00 Active confirmed 424628436 Problem Abnormal uterine bleeding (AUB) N93.9 Active confirmed [id number] ALLERGIES Allergen (clinical drug ingredient) Drug/Non Drug Allergy do cumented on EMR Reaction Allergy Type Onset Date Status metformin MetFORMIN HCl ER([facility] Code:[address]-26) stomach upset Taqueria g Allergy Active nortriptyline Nortriptyline HCl([facility] Code:[address]-55) urlizet mabry Drug Allergy Active ENCOUNTERS from 1972 to 2021-09-01 Encounter Location Date Provider Diagnosis [place] [id number] [facility] [phone] [place] [address] Aug, Moshe Watson IMMUNIZATIONS Vaccine Route Administration Date Status TDAP 0.5mL (Boostrix) IM Intramuscular May 29, 2019 Administe red Influenza 6mo & up Fluzone Unknown Oct 25, 2016 Other s Influenza 6mo & up Fluzone Unknown Jun 20, 2015 Admin istered Influenza 6mo & up Fluzone IM Intramuscular Jun 10, 2014 Admi nistered Influenza 6mo & up Fluzone IM Intramuscular Aug 20, 2012 Admi nistered SOCIAL HISTORY Tobacco Use: Social History Observation Description Date Details (start date - stop date) Never Smoker Sex Assigned At : Social History Observation Description Sex Assigned At Unknown Education: Question Answer Notes Level of Education: Finished High School Audit Question Answer Notes Total Score: 0 Interpretation: Alcohol Education Language: Question Answer Notes Languages spoken: [place]i Jainism: Question Answer Notes [employer] Sexual Hx: Question Answer Notes Had sex in the last 12 months (vaginal, oral, or anal)? Yes Have you ever had an STD? Yes Prevention Strategies discussed: Condoms with Men only Use protection? No Other? Yes Herpes? No Syphilis? No GC? No Chlamydia? No Drug and Alcohol Question Answer Notes Total Score: 0 Interpretation: No problems reported Alcohol Screening: Question Answer Notes Did you have a drink containing alcohol in the past year? Ye s Points 1 Interpretation Negative How often did you have six or more drinks on one occas ion in the past year? Never (0 points) How many drinks did you have on a typica l day when you were drinking in the past year? 1 or 2 (0 points) How often did you have a drink containing alcohol in t he past year? Monthly or less (1 point) BMI Care Goal Follow-Up Question Answer Notes Above Normal BMI Follow-Up Giving encouragement to exe rcise, Lifestyle education regarding diet Tobacco Use: Question Answer Notes Are you a: never smoker REASON FOR REFERRAL No Information VITAL SIGNS No information MEDICATIONS Medication SIG (Take, Route, Frequency, Duration) Notes Start Da te End Date Status Multivitamin Adult - otc Orally daily Active Augmentin 875-125 MG 1 tablet Orally Twice a day for 10 day(s) Oct, Not-Taking Seasonique 0.15-0.03 &0.01 MG 1 tablet Orally Once a day for 91 day(s) Feb, Not-Taking Blood Glucose Test - as directed Daily DX E11.9 Nov, Not-Taking Atorvastatin Calcium 40 MG 1 tablet Orally Once a day for 90 days Active tiZANidine HCl 4 MG 1 tablet as needed Orally Three times a day for 5 days Feb, Not-Taking traZODone HCl 150 MG 1 tablet at bedtime Orally O nce a day as needed for 90 days Active Fexofenadine HCl 180 MG 1 tablet as needed Orally Once a day for 90 d ays Not-Taking Synthroid 75 MCG 1 tablet on an empty stomach in the morning Orally Once a day for 90 days Active CeleXA 40 MG TAKE ONE TABLET BY MOUTH EVERY DAY Orally Once a day for 90 days Active Naproxen 500 MG 1 tab Orally every 12 hrs for 30 Days 10 J 2020 Active Omeprazole 10 MG 1 capsule 30 minutes before morning meal Orally Qam Mar, Active Claritin 10 MG 1 tablet Orally Once a day for 90 days 15 D 2019 Active Loestrin 1.5/30 (21) 1.5-30 MG-MCG 1 tablet Orally Once a day fo r 21 day(s) Mar, Active Flonase 50 MCG/ACT 1 Nasally Once a day as needed for 90 days Active Lancets - as directed DX E11.9 daily Nov, Not-Taking Ketorolac Tromethamine 10 MG 1 tablet with food or mil k as needed Orally every 6 hrs prn for 5 day(s) Feb, Not-Taking Zofran ODT 4 MG 1 tablet on the tongue and a llow to dissolve Orally Q8 prn nausea Mar, Active Glucometer as directed DX E11.9 Daily Nov, Not-Taking Gabapentin 800 MG 1 tablet Orally Once a day not currently taking Not-Taking PROCEDURES No Information RESULTS No Results REASON FOR VISIT refill-naproxen MEDICAL (GENERAL) HISTORY Type Description Date Medical History Diabetes mellitus type 2 Medical History Hypothyroidism Medical History PCOS Medical History Depression Medical History Insomnia Medical History Chronic back pain; left side d sciatica and left leg paresthesias Medical History Pseudoseizures Medical History Cervical spondylosis MRI 2014 Medical History L3-L4 Disc bulge MRI 2014 Medical History ASCVD risk 0.7% Medical History Seasonal allergies Medical History Echo 02/2020: grade 1 diastolic dysf, oth erwise normal Surgical History x2 Surgical History colposcopy with benjy cervantes 12/30/14 Surgical History Left L5 laminectomy - Dr. Wright 03/2020 Hospitalization History child Hospitalization History back surgery Goals Section No Information Health Concerns No Information MEDICAL EQUIPMENT No Information MENTAL STATUS No Information FUNCTIONAL STATUS No Information ASSESSMENTS No Information PLAN OF TREATMENT Medication Medication Name Sig Start Date Stop Date Omeprazole 10 MG 1 capsule 30 minutes before morning meal Orally Qam Mar, Zofran ODT 4 MG 1 tablet on the tongue and a llow to dissolve Orally Q8 prn nausea Mar, Naproxen 500 MG 1 tab Orally every 12 hrs for 30 Days Feb, Next Appt Details Provider Name:Deborah Chávez, 2020- 2-13 03:00:00 PM, [address] [facility], , [place], [address], Insurance Providers Payer Name Payer Address Payer Phone Insured Name Patient Relati onship to Insured Coverage Start Date Coverage End Date Subscriber Number Group Nu mber [facility] [address] [facility] [phone] BETTY DEL R[place] self [id number] MEDICAID [id number] [address] [facility] [address] BETTY [place] self [id number]
--- OUTSIDE RECORDS SUMMARY | 2021-09-04 20:29 | CCD ---
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 Name Role Phone Bing Almonte Unavailable PROBLEMS Type Condition ICD9-CM Code [id number] Code Onset Dates Condition S tatus W/U Status Risk SNOMED Code Notes Problem Hypothyroidism (acquired) E03.9 Active confirmed 279754360 Problem Edema of both legs R60.0 Active confirmed 1 60323247 Problem Anxiety F41.9 Active confirmed 20546443 Problem PCOS (polycystic ovarian syndrome) E28.2 Activ e confirmed 08290265 Problem Mixed hyperlipidemia E78.2 Active confirmed 585099784 Problem Insomnia G47.00 Active confirmed 095826037 Problem Obesity, unspecified E66.9 Active confirmed 282936679 Problem Type 2 diabetes mellitus with other specified complication E11.69 Active confirmed 17762887 Problem Left leg paresthesias R20.2 Active confirmed 58154533760857958 Problem Acute right-sided low back pain with right-sided sciatica M54.41 Active confirmed 206755903 Problem Severe episode of recurrent major depressive disorder, without psychotic features F33.2 Active confirmed 15310006 Problem Right sided sciatica M54.31 Active confirmed 69509142 Problem Seasonal allergies J30.2 Active confirmed 4 12298104 Problem Sciatica of left side M54.32 Active confirmed 92596574 Problem Acute left-sided low back pain with left-sided sciatica M54.42 Active confirmed 237687074 Problem Insomnia, unspecified type G47.00 Active confirmed 347732527 Problem Abnormal uterine bleeding (AUB) N93.9 Active confirmed 86711927416014 ALLERGIES Allergen (clinical drug ingredient) Drug/Non Drug Allergy do cumented on EMR Reaction Allergy Type Onset Date Status metformin MetFORMIN HCl ER([facility] Code:[address]-03) stomach upset [employer]queria [employer] Allergy Active nortriptyline Nortriptyline HCl([facility] Code:[address]-21) urinar y raghavendra Drug Allergy Active ENCOUNTERS from 1972 to 2021-09-03 Encounter Location Date Provider Diagnosis [address] [phone] [place] [address] Aug, Bing Jamesduane Insomnia, unspecified type G 47.00 ; Mixed hyperlipidemia E78.2 ; Hypothyroidism (acquired) E03.9 ; Severe episode of recurrent major depressive disorder, without psychotic features F33.2 and Seasonal allergies J30.2 IMMUNIZATIONS Vaccine Route Administration Date Status TDAP [...] Education Language: Question Answer Notes Languages spoken: Grenadian Latter Day: Question Answer Notes Latter Day 08 Adventism Sexual Hx: Question Answer Notes Had sex [...] Above Normal BMI Follow-Up Giving encouragement to excarla arauz, Lifestyle education regarding diet Tobacco Use: Question Answer Notes Are you a: never smoker REASON FOR REFERRAL No Information VITAL SIGNS No information MEDICATIONS Medication SIG (Take, Route, Frequency, Duration) Notes Start Da te End Date Status Multivitamin Adult - otc Orally daily Active Atorvastatin Calcium 40 MG 1 tablet Orally Once a day for 90 days Active Seasonique 0.15-0.03 &0.01 MG 1 tablet Orally Once a day for 91 day(s) Feb, Not-Taking Lancets - as directed DX E11.9 daily Nov, Not-Taking Synthroid 75 MCG 1 tablet on an empty stomach in the morning Orally Once a day for 90 days Active Blood Glucose Test - as directed Daily DX E11.9 Nov, Not-Taking traZODone HCl 150 MG 1 tablet at bedtime Orally O nce a day as needed for 90 days Active tiZANidine HCl 4 MG 1 tablet as needed Orally Three times a day for 5 days Feb, Not-Taking Glucometer as directed DX E11.9 Daily Nov, Not-Taking Fexofenadine HCl 180 MG 1 tablet as needed Orally Once a day for 90 d ays Not-Taking Loestrin 1.5/30 (21) 1.5-30 MG-MCG 1 tablet Orally Once a day fo r 21 day(s) Mar, Active CeleXA 40 MG TAKE ONE TABLET BY MOUTH EVERY DAY Orally Once a day for 90 days Active Omeprazole 10 MG 1 capsule 30 minutes before morning meal Orally Qam Mar, Active Gabapentin 800 MG 1 tablet Orally Once a day not currently taking Not-Taking Claritin 10 MG 1 tablet Orally Once a day for 90 days 15 D 2019 Active Flonase 50 MCG/ACT 1 Nasally Once a day as needed for 90 days Active Ketorolac Tromethamine 10 MG 1 tablet with food or mil k as needed Orally every 6 hrs prn for 5 day(s) Feb, Not-Taking Zofran ODT 4 MG 1 tablet on the tongue and a llow to dissolve Orally Q8 prn nausea Mar, Active Naproxen 500 MG 1 tab Orally every 12 hrs for 30 Days 10 J 2020 Active Augmentin 875-125 MG 1 tablet Orally Twice a day for 10 day(s) Oct, Not-Taking PROCEDURES No Information RESULTS No Results REASON FOR VISIT refill - pt out of meds MEDICAL (GENERAL) HISTORY Type Description Date Medical [...] No Information FUNCTIONAL STATUS No Information ASSESSMENTS Encounter Date Diagnosis Assessment Notes Treatment Notes Treatm ent Clinical Notes Aug, Insomnia, unspecified type (ICD-10 - G47.00) Aug, Mixed hyperlipidemia (ICD-10 - E78.2) Aug, Hypothyroidism (acquired) (ICD-10 - E03.9) Aug, Severe episode of recurrent major depressive disorder, without psychotic features (ICD-10 - F33.2) Aug, Seasonal allergies (ICD-10 - J30.2) PLAN OF TREATMENT Medication Medication Name Sig Start Date Stop Date Omeprazole 10 MG 1 capsule 30 minutes before morning meal Orally Qam Mar, Zofran ODT 4 MG 1 tablet on the tongue and a llow to dissolve Orally Q8 prn nausea Mar, Claritin 10 MG 1 tablet Orally Once a day for 90 days Aug, 020 Naproxen 500 MG 1 tab Orally every 12 hrs for 30 Days Feb, 21 traZODone HCl 150 MG 1 tablet at bedtime Orally O nce a day as needed for 90 days Flonase 50 MCG/ACT 1 Nasally Once a day as needed for 90 days CeleXA 40 MG TAKE ONE TABLET BY MOUTH EVERY DAY Orally Once a day for 90 days Synthroid 75 MCG 1 tablet on an empty stomach in the morning Orally Once a day for 90 days Atorvastatin Calcium 40 MG 1 tablet Orally Once a day for 90 day s Next Appt Details Provider Name:Deborah Chávez, 2020-09 03:00:00 PM, [address] [facility], , [place], [address], Insurance Providers Payer Name Payer Address Payer Phone Insured Name Patient Relati onship to Insured Coverage Start Date Coverage End Date Subscriber Number Group Nu [facility]ID [id number] [employer] [address] [facility] [id number] [address] self [id number] [facility] [place] [address] [facility] [address] [place] self [id number]
--- OUTSIDE RECORDS SUMMARY | 2021-09-04 20:29 | CCD ---
Author Author [facility] Organization [facility] Address Unknown Phone Unavailable Care Team Providers Care Registered Nurse Ambulatory Name Role Phone Angelica Elam Unavailable PROBLEMS Type Condition ICD9-CM Code [id number] Code Onset Dates Condition S tatus W/U Status Risk SNOMED Code Notes Problem Hypothyroidism (acquired) E03.9 Active confirmed 426981895 Problem Edema of both legs R60.0 Active confirmed 1 06235584 Problem Anxiety F41.9 Active confirmed 59335139 Problem PCOS (polycystic ovarian syndrome) E28.2 Activ e confirmed 20049012 Problem Mixed hyperlipidemia E78.2 Active confirmed 093092781 Problem Insomnia G47.00 Active confirmed 417842626 Problem Obesity, unspecified E66.9 Active confirmed 463084988 Problem Type 2 diabetes mellitus with other specified complication E11.69 Active confirmed 14770300 Problem Left leg paresthesias R20.2 Active confirmed 14147880428547743 Problem Acute right-sided low back pain with right-sided sciatica M54.41 Active confirmed 421001952 Problem Severe episode of recurrent major depressive disorder, without psychotic features F33.2 Active confirmed 69412757 Problem Right sided sciatica M54.31 Active confirmed 53142746 Problem Seasonal allergies J30.2 Active confirmed 4 58228965 Problem Sciatica of left side M54.32 Active confirmed 34317144 Problem Acute left-sided low back pain with left-sided sciatica M54.42 Active confirmed 893079382 Problem Insomnia, unspecified type G47.00 Active confirmed 055705205 Problem Abnormal uterine bleeding (AUB) N93.9 Active confirmed 29030377144579 ALLERGIES Allergen (clinical drug ingredient) Drug/Non Drug Allergy do cumented on EMR Reaction Allergy Type Onset Date Status metformin MetFORMIN HCl ER([facility] Code:[address]-22) stomach upset [employer] g Allergy Active nortriptyline Nortriptyline HCl([facility] Code:[address]-15) urinar y raghavendra Drug Allergy Active ENCOUNTERS from 1972 to 2021-08-05 Encounter Location Date Provider Diagnosis [facility] [phone] [place] [address] Jul, Angelica Elam IMMUNIZATIONS Vaccine Route Administration Date Status TDAP [...] Education Language: Question Answer Notes Languages spoken: Ukrainian Temple: Question Answer Notes Temple 08 Christianity Sexual Hx: Question Answer Notes Had sex [...] before morning meal Orally Qam Mar, Active Naproxen 500 MG 1 tab Orally every 12 hrs for 30 Days 10 J 2020 Active Claritin 10 MG 1 tablet Orally [...] Information RESULTS No Results REASON FOR VISIT Did not keep GI appt MEDICAL (GENERAL) HISTORY Type Description Date Medical [...] to dissolve Orally Q8 prn nausea Mar, Next Appt Details Provider Name:Deborahkike Chávez, 2020-09 11:00:00 AM, [address] [facility], , [place], [address], Insurance Providers Payer Name Payer Address Payer Phone Insured Name Patient Relati onship to Insured Coverage Start Date Coverage End Date MEDICAID [employer] [address] [facility] [id number] [place] [facility] [place] [address] [facility] [address] [place]
[2021-09-04] MEDS ORDERED: LORA-622 PO (20:30)
--- OUTSIDE RECORDS SUMMARY | 2021-09-04 20:30 | CCD ---
Author Author [facility] Organization [facility] Address Unknown Phone Unavailable Support Name Relationship Address Phone DISABLED Next Of Kin Unknown Unavailable MARRAS Next [place] [address] [place] [address] [address] MARRAS [facility] Next Of Kin [address] [address] [address] [place] [address] Lesley Foreman Next Of Kin [address] [place] [address] M[place]ORY [place] [address] WATNCTYSD* Next Of Kin [address] [place] [address] [facility] Next Of Kin [address] [place] [address] [employer] Next Of Kin [address] [place] [address] KINNEYCOFF Next Of Kin [address] [place] [address] [facility] Next Of Kin [address] [place] [address] KINNEYWASH Next Of Kin [address] [place] [address] UE Next Of Kin Unknown Unavailable [facility] [place] [address] Unavailable UNEMPLOYED Next Of Kin [address] [place] [address] RICHIE HOOD Next Of Kin [address] [place] [address] ANA CRISTINA HOOD Next Of Kin [address] [place] [address] CARMEN DEL RIO Next Of Kin [address] [place] [address] [employer] Next Of Kin [address] [place] [address] [employer] Next Of Kin [address] [place] [address] CARMEN DEL RIO [address] [place] [address] Unavailable Care Team Providers 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 Name Role Phone MCELHERAN, KANNAN PA Unavailable Unavailable MCELHERAN, KANNAN PA Unavailable Unavailable MCELHERAN, KANNAN PA Unavailable Unavailable MCELHERAN, KANNAN PA Unavailable Unavailable MCELHERAN, KANNAN PA Unavailable Unavailable MCELHERAN, KANNAN PA Unavailable Unavailable MCELHERAN, KANNAN PA Unavailable Unavailable MCELHERAN, KANNAN PA Unavailable Unavailable MCELHERAN, KANNAN PA Unavailable Unavailable MCELHERAN, KANNAN PA Unavailable Unavailable MCELHERAN, KANNAN PA Unavailable Unavailable MCELHERAN, KANNAN PA Unavailable Unavailable MCELHERAN, KANNAN PA Unavailable Unavailable MCELHERAN, KANNAN PA Unavailable Unavailable MCELHERAN, AKNNAN PA Unavailable Unavailable MCELHERAN, KANNAN PA Unavailable Unavailable MCELHERAN, KANNAN PA Unavailable Unavailable MCELHERAN, KANNAN PA Unavailable Unavailable MCELHERAN, KANNAN PA Unavailable Unavailable MCELHERAN, KANNAN PA Unavailable Unavailable MCELHERAN, KANNAN PA Unavailable Unavailable MCELHERAN, KANNAN PA Unavailable Unavailable MCELHERAN, KANNAN PA Unavailable Unavailable MCELHERAN, KANNAN PA Unavailable Unavailable MCELHERAN, KANNAN PA Unavailable Unavailable MCELHERAN, KANNAN PA Unavailable Unavailable MCELHERAN, KANNAN PA Unavailable Unavailable MCELHERAN, KANNAN PA Unavailable Unavailable [facility], KANNAN PA Unavailable Unavailable MCELHERAN, KANNAN PA Unavailable Unavailable MCELAN, KANNAN PA Unavailable Unavailable [facility], KANNAN PA Unavailable Unavailable MCELHERAN, KANNAN PA Unavailable Unavailable MCELHERAN, KANNAN PA Unavailable Unavailable MCELHERAN, KANNAN PA Unavailable Unavailable MCELHERAN, KANNAN PA Unavailable Unavailable MCELHERAN, KANNAN PA Unavailable Unavailable MCELHERAN, KANNAN PA Unavailable Unavailable MCELHERAN, KANNAN PA Unavailable Unavailable MCELHERAN, KANNAN PA Unavailable Unavailable MCELHERAN, KANNAN PA Unavailable Unavailable MCELHERAN, KANNAN PA Unavailable Unavailable MCELHERAN, KANNAN PA Unavailable Unavailable MCELHERAN, KANNAN PA Unavailable Unavailable MCELHERAN, KANNAN PA Unavailable Unavailable MCELHERAN, KANNAN PA Unavailable Unavailable MCELHERAN, KANNAN PA Unavailable Unavailable MCELHERAN, KANNAN PA Unavailable Unavailable MCELHERAN, KANNAN PA Unavailable Unavailable MCELHERAN, KANNAN PA Unavailable Unavailable MCELHERAN, KANNAN PA Unavailable Unavailable MCELHERAN, KANNAN PA Unavailable Unavailable MCELHERAN, KANNAN PA Unavailable Unavailable MCELHERAN, KANNAN PA Unavailable Unavailable MCELHERAN, KANNAN PA Unavailable Unavailable MCELHERAN, KANNAN PA Unavailable Unavailable MCELHERAN, KANNAN PA Unavailable Unavailable MCELHERAN, KANNAN PA Unavailable Unavailable Rendon, Mariposa Vital MD Unavailable Unavailable Rendon, Mariposa Vital MD Unavailable Unavailable Rendon, Mariposa Vital MD Unavailable Unavailable Rendon, Mariposa Vital MD Unavailable Unavailable Rendon, Mariposa Vital MD Unavailable Unavailable Rendon, Mariposa Vital MD Unavailable Unavailable Rendon, Mariposa Vital MD Unavailable Unavailable Rendon, Mariposa Vital MD Unavailable Unavailable Rendon, Mariposa Vital MD Unavailable Unavailable Rendon, Mariposa Vital MD Unavailable Unavailable Rendon, Mariposa Vital MD Unavailable Unavailable Rendon, Mariposa Vital MD Unavailable Unavailable Rendon, Mariposa Vital MD Unavailable Unavailable Erndon, Mariposa Vital MD Unavailable Unavailable Rendon, Mariposa Vital MD Unavailable Unavailable Rendon, Mariposa Vital MD Unavailable Unavailable Rendon, Mariposa Vital MD Unavailable Unavailable Rendon, Mariposa Vital MD Unavailable Unavailable Rendon, Mariposa Vital MD Unavailable Unavailable Rendon, Mariposa Vital MD Unavailable Unavailable Rendon, Mariposa Vital MD Unavailable Unavailable Rendon, Mariposa Vital MD Unavailable Unavailable Rendon, Mariposa Vital MD Unavailable Unavailable Rendon, Mariposa Vital MD Unavailable Unavailable Rendon, Mariposa Vital MD Unavailable Unavailable Rendon, Mariposa Vital MD Unavailable Unavailable Rendon, Mariposa Vital MD Unavailable Unavailable Rendon, Mariposa Vital MD Unavailable Unavailable Rendon, Mariposa Vital MD Unavailable Unavailable Rendon, Mariposa Vital MD Unavailable Unavailable Rendon, Mariposa Vital MD Unavailable Unavailable Rendon, Mariposa Vital MD Unavailable Unavailable Rendon, Mariposa Vital MD Unavailable Unavailable Rendon, Mariposa Vital MD Unavailable Unavailable Rendon, Mariposa Vital MD Unavailable Unavailable Rendon, Mariposa Vital MD Unavailable Unavailable Rendon, Mariposa Vital MD Unavailable Unavailable Rendon, Mariposa Vital MD Unavailable Unavailable Rendon, Mariposa Vital MD Unavailable Unavailable Rendon, Mariposa Vital MD Unavailable Unavailable Rendon, Mariposa Vital MD Unavailable Unavailable Rendon, Mariposa Vital MD Unavailable Unavailable Rendon, Mariposa Vital MD Unavailable Unavailable Rendon, Mariposa Vital MD Unavailable Unavailable Rendon, L Amanuel ESTRADA Unavailable Unavailable Rendon, L Amanuel ESTRAAD Unavailable Unavailable Rendon, L Amanuel ESTRADA Unavailable Unavailable Rendon, L Amanuel ESTRADA Unavailable Unavailable Rendon, L Amanuel ESTRADA Unavailable Unavailable Rendon, L Amanuel ESTRADA Unavailable Unavailable Rendon, L Amanuel ESTRADA Unavailable Unavailable Rendon, L Amanuel ESTRADA Unavailable Unavailable Rendon, L Amanuel ESTRADA Unavailable Unavailable Rendon, L Amanuel ESTRADA Unavailable Unavailable Rendon, L Amanuel ESTRADA Unavailable Unavailable Rendon, L Amanuel ESTRADA Unavailable Unavailable Rendon, L Amanuel ESTRADA Unavailable Unavailable Rendon, L Amanuel ESTRADA Unavailable Unavailable Rendon, L Amanuel ESTRADA Unavailable Unavailable Rendon, L Amanuel ESTRADA Unavailable Unavailable Rendon, L Amanuel ESTRADA Unavailable Unavailable Rendon, L Amanuel ESTRADA Unavailable Unavailable Rendon, L Amanuel ESTRADA Unavailable Unavailable Rendon, L Amanuel ESTRADA Unavailable Unavailable Rendon, L Amanuel ESTRADA Unavailable Unavailable Rendon, L Amanuel ESTRADA Unavailable Unavailable Rendon, L Amanuel ESTRADA Unavailable Unavailable Rendon, L Amanuel ESTRADA Unavailable Unavailable Rendon, L Amanuel ESTRADA Unavailable Unavailable Rendon, L Amanuel ESTRADA Unavailable Unavailable Rendon, L Amanuel ESTRADA Unavailable Unavailable Rendon, L Amanuel ESTRADA Unavailable Unavailable Rendon, L Amanuel ESTRADA Unavailable Unavailable Rendon, L Amanuel ESTRADA Unavailable Unavailable Rendon, L Amanuel ESTRADA Unavailable Unavailable Rendon, L Amanuel ESTRADA Unavailable Unavailable Rendon, L Amanuel ESTRADA Unavailable Unavailable Rendon, L Amanuel ESTRADA Unavailable Unavailable Rendon, L Amanuel ESTRADA Unavailable Unavailable Rendon, L Amanuel ESTRADA Unavailable Unavailable Rendon, L Amanuel ESTRADA Unavailable Unavailable Rendon, L Amanuel ESTRADA Unavailable Unavailable Rendon, L Amanuel ESTRADA Unavailable Unavailable Rendon, L Amanuel ESTRADA Unavailable Unavailable Rendon, L Amanuel ESTRADA Unavailable Unavailable Rendon, L Amanuel ESTRADA Unavailable Unavailable Rendon, L Amanuel ESTRADA Unavailable Unavailable Rendon, L Amanuel ESTRADA Unavailable Unavailable Rendon, L Amanuel ESTRADA Unavailable Unavailable Rendon, L Amanuel ESTRADA Unavailable Unavailable Rendon, L Amanuel ESTRADA Unavailable Unavailable Rendon, L Amanuel ESTRADA Unavailable Unavailable Rendon, L Amanuel ESTRADA Unavailable Unavailable Rendon, L Amanuel ESTRADA Unavailable Unavailable Rendon, L Amanuel ESTRADA Unavailable Unavailable Rendon, L Amanuel ESTRADA Unavailable Unavailable Rendon, L Amanuel ESTRADA Unavailable Unavailable Rendon, L Amanuel ESTRADA Unavailable Unavailable Rendon, L Amanuel ESTRADA Unavailable Unavailable Rendon, L Amanuel ESTRADA Unavailable Unavailable Rendon, L Amanuel ESTRADA Unavailable Unavailable Rendon, L Amanuel ESTRADA Unavailable Unavailable Lucio, L Swapna RPA Unavailable Unavailable Lucio, L Swapna RPA Unavailable Unavailable Lucio, L Swapna RPA Unavailable Unavailable Lucio, L Swapna RPA Unavailable Unavailable Lucio, L Swapna RPA Unavailable Unavailable Lucio, L Swapna RPA Unavailable Unavailable Lucio, L Swapna RPA Unavailable Unavailable Lucio, L Swapna RPA Unavailable Unavailable Lucio, L Swapna RPA Unavailable Unavailable Lucio, L Swapna RPA Unavailable Unavailable Lucio, L Swapna RPA Unavailable Unavailable Lucio, L Swapna RPA Unavailable Unavailable Lucio, L Swapna RPA Unavailable Unavailable Lucio, L Swapna RPA Unavailable Unavailable Lucio, L Wsapna RPA Unavailable Unavailable Lucio, L Swapna RPA Unavailable Unavailable Lucio, L Swapna RPA Unavailable Unavailable Lucio, L Swapna RPA Unavailable Unavailable Lucio, L Swapna RPA Unavailable Unavailable Lucio, L Swapna RPA Unavailable Unavailable Lucio, L Swapna RPA Unavailable Unavailable Lucio, L Swapna RPA Unavailable Unavailable Lucio, L Swapna RPA Unavailable Unavailable Lucio, L Swapna RPA Unavailable Unavailable Lucio, L Swapna RPA Unavailable Unavailable Lucio, L Swapna RPA Unavailable Unavailable Lucio, L Swapna RPA Unavailable Unavailable Lucio, L Swapna RPA Unavailable Unavailable Lucio, L Swapna RPA Unavailable Unavailable Lucio, L Swapna RPA Unavailable Unavailable Lucio, L Swapna RPA Unavailable Unavailable Lucio, L Swapna RPA Unavailable Unavailable Alberry, D Joan DIRECTOR OF RETENTION Unavailable Unavailable Alberry, D Joan DIRECTOR OF RETENTION Unavailable Unavailable Alberry, D Joan DIRECTOR OF RETENTION Unavailable Unavailable Alberry, D Joan DIRECTOR OF RETENTION Unavailable Unavailable Alberry, D Joan DIRECTOR OF RETENTION Unavailable Unavailable Alberry, D Joan DIRECTOR OF RETENTION Unavailable Unavailable Alberry, D Joan DIRECTOR OF RETENTION Unavailable Unavailable Alberry, D Joan DIRECTOR OF RETENTION Unavailable Unavailable Alberry, D Joan DIRECTOR OF RETENTION Unavailable Unavailable Alberry, D Joan DIRECTOR OF RETENTION Unavailable Unavailable Alberry, D Joan DIRECTOR OF RETENTION Unavailable Unavailable Alberry, D Joan DIRECTOR OF RETENTION Unavailable Unavailable Alberry, D Joan DIRECTOR OF RETENTION Unavailable Unavailable Alberry, D Joan DIRECTOR OF RETENTION Unavailable Unavailable Alberry, D Joan DIRECTOR OF RETENTION Unavailable Unavailable Alberry, D Joan DIRECTOR OF RETENTION Unavailable Unavailable Alberry, D Joan DIRECTOR OF RETENTION Unavailable Unavailable Alberry, D Joan DIRECTOR OF RETENTION Unavailable Unavailable Alberry, D Joan DIRECTOR OF RETENTION Unavailable Unavailable Alberry, D Joan DIRECTOR OF RETENTION Unavailable Unavailable Alberry, D Joan DIRECTOR OF RETENTION Unavailable Unavailable Alberry, D Joan DIRECTOR OF RETENTION Unavailable Unavailable Alberry, D Joan DIRECTOR OF RETENTION Unavailable Unavailable Alberry, D Joan DIRECTOR OF RETENTION Unavailable Unavailable Alberry, D Joan DIRECTOR OF RETENTION Unavailable Unavailable Alberry, D Joan DIRECTOR OF RETENTION Unavailable Unavailable Alberry, D Joan DIRECTOR OF RETENTION Unavailable Unavailable Alberry, D Joan DIRECTOR OF RETENTION Unavailable Unavailable Alberry, D Joan DIRECTOR OF RETENTION Unavailable Unavailable Alberry, D Joan DIRECTOR OF RETENTION Unavailable Unavailable Alberry, D Joan DIRECTOR OF RETENTION Unavailable Unavailable Alberry, D Joan DIRECTOR OF RETENTION Unavailable Unavailable Alberry, D Joan DIRECTOR OF RETENTION Unavailable Unavailable Alberry, D Joan DIRECTOR OF RETENTION Unavailable Unavailable Alberry, D Joan DIRECTOR OF RETENTION Unavailable Unavailable Alberry, D Joan DIRECTOR OF RETENTION Unavailable Unavailable Alberry, D Joan DIRECTOR OF RETENTION Unavailable Unavailable Alberry, D Joan DIRECTOR OF RETENTION Unavailable Unavailable Alberry, D Joan DIRECTOR OF RETENTION Unavailable Unavailable Alberry, D Joan DIRECTOR OF RETENTION Unavailable Unavailable Alberry, D Joan DIRECTOR OF RETENTION Unavailable Unavailable Alberry, D Joan DIRECTOR OF RETENTION Unavailable Unavailable Alberry, D Joan DIRECTOR OF RETENTION Unavailable Unavailable Alberry, D Joan DIRECTOR OF RETENTION Unavailable Unavailable Alberry, D Joan DIRECTOR OF RETENTION Unavailable Unavailable Alberry, D Joan DIRECTOR OF RETENTION Unavailable Unavailable Alberry, D Joan DIRECTOR OF RETENTION Unavailable Unavailable Alberry, D Joan DIRECTOR OF RETENTION Unavailable Unavailable Alberry, D Joan DIRECTOR OF RETENTION Unavailable Unavailable Alberry, D Joan DIRECTOR OF RETENTION Unavailable Unavailable Alberry, D Joan DIRECTOR OF RETENTION Unavailable Unavailable Alberry, D Joan DIRECTOR OF RETENTION Unavailable Unavailable Alberry, D Joan DIRECTOR OF RETENTION Unavailable Unavailable Alberry, D Joan DIRECTOR OF RETENTION Unavailable Unavailable Alberry, D Joan DIRECTOR OF RETENTION Unavailable Unavailable Mariposa Rendon MD Unavailable Unavailable Mariposa Rendon MD Unavailable Unavailable Mariposa Rendon MD Unavailable Unavailable Mariposa Rendon MD Unavailable Unavailable Mariposa Rendon MD Unavailable Unavailable Mariposa Rendon MD Unavailable Unavailable Mariposa Rendon MD Unavailable Unavailable Mariposa Rendon MD Unavailable Unavailable Mariposa Rendon MD Unavailable Unavailable Mariposa Rendon MD Unavailable Unavailable Mariposa Rendon MD Unavailable Unavailable Mariposa Rendon MD Unavailable Unavailable Mariposa Rendon MD Unavailable Unavailable Mariposa Rendon MD Unavailable Unavailable Mariposa Rendon MD Unavailable Unavailable Mariposa Rendon MD Unavailable Unavailable Mariposa Rendon MD Unavailable Unavailable Mariposa Rendon MD Unavailable Unavailable Mariposa Rendon MD Unavailable Unavailable Mariposa Rendon MD Unavailable Unavailable Mariposa Rendon MD Unavailable Unavailable Mariposa Rendon MD Unavailable Unavailable Mariposa Rendon MD Unavailable Unavailable Mariposa Rendon MD Unavailable Unavailable Rendon, L Amanuel MD Unavailable Unavailable Rendon, L Amanuel MD Unavailable Unavailable Rendon, L Amanuel MD Unavailable Unavailable Rendon, L Amanuel MD Unavailable Unavailable Rendon, L Amanuel MD Unavailable Unavailable Rendon, L Amanuel MD Unavailable Unavailable Rendon, L Amanuel MD Unavailable Unavailable Rendon, L Amanuel MD Unavailable Unavailable Rendon, L Amanuel MD Unavailable Unavailable Rendon, L Amanuel MD Unavailable Unavailable Rendon, L Amanuel MD Unavailable Unavailable Rendon, L Amanuel MD Unavailable Unavailable Rendon, L Amanuel MD Unavailable Unavailable Rendon, L Amaneul MD Unavailable Unavailable Rendon, L Amanuel MD Unavailable Unavailable Rendon, L Amanuel MD Unavailable Unavailable Rendon, L Amanuel MD Unavailable Unavailable Rendon, L Amanuel MD Unavailable Unavailable Rendon, L Amanuel MD Unavailable Unavailable Rendon, L Amanuel MD Unavailable Unavailable Rendon, L Amanuel MD Unavailable Unavailable Rendon, L Amanuel MD Unavailable Unavailable Rendon, L Amanuel MD Unavailable Unavailable Rendon, L Amanuel MD Unavailable Unavailable Rendon, L Amanuel MD Unavailable Unavailable Rendon, L Amanuel MD Unavailable Unavailable Rendon, L Amanuel MD Unavailable Unavailable Re-disclosure Warning The records that you are about to access may contain information from federally-assisted alcohol or drug abuse programs. If such information is present, then the following federally mandated warning applies: This information has been disclosed to you from records protected by federal confidentiality rules (42 CFR part 2). The federal rules prohibit you from making any further disclosure of this information unless further disclosure is expressly permitted by the written consent of the person to whom it pertains or as otherwise permitted by 42 CFR part 2. A general authorization for the release of medical or other information is NOT sufficient for this purpose. The Federal rules restrict any use of the information to criminally investigate or prosecute any alcohol or drug abuse patient.The records that you are about to access may contain highly sensitive health information, the redisclosure of which is protected by Article 27-F of the [facility] Public Health law. If you continue you may have access to information: Regarding HIV / AIDS; Provided by facilities licensed or operated by the [facility] Office of Mental Health; or Provided by the [facility] Office for People With Developmental Disabilities. If such information is present, then the following [facility] mandated warning applies: This information has been disclosed to you from confidential records which are protected by state law. State law prohibits you from making any further disclosure of this information without the specific written consent of the person to whom it pertains, or as otherwise permitted by law. Any unauthorized further disclosure in violation of state law may result in a fine or half-way sentence or both. A general authorization for the release of medical or other information is NOT sufficient authorization for further disc losure. Allergies and Adverse Reactions Type Description Substance Reaction Status Data Source(s ) Drug allergy NORTRIPTYLINE NORTRIPTYLINE RASH [facility] Family History Family Member Name Family Member Gender Family Member Status Date o f Status Description Data Source(s) Unknown Female Problem MEDENT ([facility] Encounters Encounter Providers Location Date Indications Data Source(s ) Unknown [address] [facility] [id number] 09/02/2021 12:00:00 AM EST eCW1 ([facility]) Unknown [address] [facility] [id number] 08/31/2021 12:00:00 AM EST eCW1 ([facility]) Unknown [address] [facility] [id number] 08/04/2021 12:00:00 AM EST eCW1 ([facility]) Unknown [address] [facility] [id number] 05/25/2021 12:00:00 AM EDT eCW1 ([facility]) Office Visit Attender: Amanuel Rendon MD Physical Therapy 2020 09:45:00 AM EDT MEDENT ([facility] ) Outpatient Attender: Amanuel Rendon MD 05/07/2021 11:23:34 AM EDT [facility] [place] [facility] ( in Healthcare facility) Attender: Amanuel Rendon MD 05/07/2021 09:59:00 AM EDT - 05/08/2021 03:16:[facility]: Amanuel Rendon MDAdmitter: Amanuel Rendon MD 05/07/2021 09:59:00 AM EDT - 05/08/2021 03:16:00 PM EDT 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 Outpatient [address] [facility] [place] [address] 05/03/2021 12:00:00 AM EDT eCW1 ([facility]) [place] [address] [facility] [address] 05/03/2021 12:00:00 AM EDT eCW1 ([facility]) [place] [address] [address] 04/22/2021 12:00:00 AM EDT eCW1 ([facility]) [place] [address] [facility] [place] [address] 04/19/2021 12:00:00 AM EDT eCW1 ([facility]) [place] [address] [place] [address] 04/19/2021 12:00:00 AM EDT eCW1 ([facility]) Outpatient Attender: Amanuel Rendon MD Physical Therapy 03/31/2021 0 1:15:00 PM EDT MEDENT ([facility]) Outpatient Attender: KANNAN GODFREY PAConsultant: Dario Branch DIRECTOR OF RETENTION 03/26/2021 09:13:00 AM EDT - 03/26/2021 10:13:00 AM EDT [facility] Patient discharged. [place] [address] [address] 03/24/2021 12:00:00 AM EDT eCW1 ([facility]) [place] [address] [facility] [address] 03/17/2021 12:00:00 AM EDT eCW1 ([facility]) Outpatient Attender: KANNAN DIXON Physical Therapy 03/10/2021 04:15:00 PM EDT MEDENT ([facility]) [place] [address] [place] [address] 03/04/2021 12:00:00 AM EDT eCW1 ([facility]) [place] [address] [place] [address] 02/26/2021 12:00:00 AM EDT eCW1 ([facility]) [place] [address] [facility] [place] [address] 02/24/2021 12:00:00 AM EDT eCW1 [facility] [place] [address] [address] [address] 02/24/2021 12:00:00 AM EDT eCW1 ([facility]) [place] [address] [address] 02/17/2021 12:00:00 AM EDT eCW1 [facility] [place] [address] [address] 02/02/2021 12:00:00 AM EDT eCW1 ([facility]) [place] [address] [address] 12/04/2020 12:00:00 AM EST eCW1 ([facility]) Outpatient Attender: Swapna Santiago/Davina/Lonnie/Marylu sharma 11/02/2020 09:45:00 AM EST MEDENT ([facility]) [place] [address] [facility] [address] 10/26/2020 12:00:00 AM EST eCW1 ([facility]) [place] [address] [address] 10/26/2020 12:00:00 AM EST eCW1 ([facility] [place] [address] [facility] [place] [address] 09/07/2020 12:00:00 AM EST eCW1 ([facility]) Unknown [address] [facility] [place] [address] 08/28/2020 12:00:00 AM EST eCW1 ([facility]) [place] [address] [facility] [address] 08/28/2020 12:00:00 AM EST eCW1 ([facility]) [place] [address] [facility] [place] [address] 08/27/2020 12:00:00 AM EST eCW1 ([facility]) [place] [address] [facility] [place] [address] 08/27/2020 12:00:00 AM EST eCW1 ([facility]) Immunizations Vaccine Date Status Description Data Source(s) 02/24/2021 02:50:00 PM EDT completed e CW1 ([facility]) 02/24/2021 02:50:00 PM EDT completed e CW1 ([facility]) 02/24/2021 02:50:00 PM EDT completed e CW1 ([facility]) 02/24/2021 02:50:00 PM EDT completed e CW1 ([facility]) 02/24/2021 02:50:00 PM EDT completed e CW1 ([facility]) 02/24/2021 02:50:00 PM EDT completed e CW1 ([facility]) 02/24/2021 02:50:00 PM EDT completed e CW1 ([facility]) 02/24/2021 02:50:00 PM EDT completed e CW1 ([facility]) 02/24/2021 02:50:00 PM EDT completed e CW1 ([facility]) 02/24/2021 02:50:00 PM EDT completed e CW1 ([facility]) 02/24/2021 02:50:00 PM EDT completed e CW1 ([facility]) 02/24/2021 02:50:00 PM EDT completed e CW1 ([facility]) 02/24/2021 02:50:00 PM EDT completed e CW1 ([facility]) COVID-19 VACCINE Moderna 12/03/2020 12:00:00 AM EST completed [facility] Vaccine Series Complete: YESThis Data wa s Submitted to [facility] [employer]. COVID-19 VACCINE Moderna 11/05/2020 12:00:00 AM EST completed [facility] Vaccine Series Complete: NOThis Data was Submitted to [facility] Via [employer]. Medications Medication Brand Name Start Date Product Form Dose Route Admi nistrative Instructions Pharmacy Instructions Status Indications Reaction Description Data Source(s) 500 mg 09/01/2021 12:00:00 AM EST tablet 60 TAKE ONE TABLET BY MOUTH EVERY 12 HOURS WITH FOOD TAKE ONE TABLET BY MOUTH EVERY 12 HOURS WITH FOOD SOLD : 09/01/2021 [facility] 5-325 mg 05/19/2021 12:00:00 AM EDT tablet 14 TAKE ONE TABLET BY MOUTH EVERY 4-6 HOURS NEEDED POST SURGICAL PAIN MAXIMUM DAILY DOSE = FOUR TABLETS TAKE ONE TABLET BY MOUTH EVERY 4-6 HOURS NEEDED POST SURGICAL PAIN MAXIMUM DAILY DOSE = FOUR TABLETS SOLD: 05/21/2021 [facility] 5-325 mg 05/11/2021 12:00:00 AM EDT tablet 20 TAKE ONE TO TWO TABLETS BY MOUTH EVERY 4 TO 6 HOURS NEEDED FOR POST SURGICAL PAIN MAXIMUM DAILY DOSE = 8 TAKE ONE TO TWO TABLETS BY MOUTH EVERY 4 TO 6 HOURS NEEDED FOR POST SURGICAL PAIN MAXIMUM DAILY DOSE = 8 SOLD: 05/14/2021 [facility] 5 mg 05/08/2021 12:00:00 AM EDT tablet 20 TAKE ONE TABLET BY MOUTH EVERY 6 HOURS NEEDED FOR PAIN MAXIMUM DAILY DOSE = FOUR TABLETS TAKE ONE TABLET BY MOUTH EVERY 6 HOURS NEEDED FOR PAIN MAXIMUM DAILY DOSE = FOUR TABLETS SOLD: 05/08/2021 [facility] 4 % 04/30/2021 12:00:00 AM EDT liquid 118 USE IN SHOWER ONCE DAILY FOR 5 DAYS BEFORE SURGERY USE IN SHOWER ONCE DAILY FOR 5 DAYS BEFORE SURGERY [facility] 2 % 04/29/2021 12:00:00 AM EDT ointment 22 APPLY PEA SIZED AMOUNT TO NASAL PASSAGES THREE TIMES A DAY FOR 5 DAYS PRIOR TO SURGERY APPLY PEA SIZED AMOUNT TO NASAL PASSAGES THREE TIMES A DAY FOR 5 DAYS PRIOR TO SURGERY SOLD: 05/01/2021 [facility] Mupirocin 0.02 MG/MG Topical Ointment Mupirocin 04/28/2021 12:00:00 AM EDT active MEDENT ([facility] ) chlorhexidine gluconate 40 MG/ML Medicated Liquid Soap [Samuel gallagher] Hibiclens 04/28/2021 12:00:00 AM EDT completed MEDENT ([facility]) Acetaminophen 325 MG / Oxycodone Hydrochloride 5 MG Or al Tablet Oxycodone-Acetaminophen 04/28/2021 12:00:00 AM EDT ORAL active MEDENT ([facility]) Omeprazole 10 MG Delayed Release Oral Capsule Omeprazole 10 MG 04/19/2021 12:00:00 AM EDT active Omeprazo le 10 MG eCW1 ([facility]) Zofran ODT 4 MG UNK 04/19/2021 12:00:00 AM EDT 1.0 {tablet_on_the_tongue_and_allow_to_dissolve} active Zofran ODT 4 MG eCW1 ([facility]) Zofran ODT 4 MG UNK 04/19/2021 12:00:00 AM EDT 1.0 {tablet_on_the_tongue_and_allow_to_dissolve} active Zofran ODT 4 MG eCW1 ([facility]) 10 mg 04/19/2021 12:00:00 AM EDT capsule,delayed release (DR/EC) 30 TAKE ONE CAPSULE BY MOUTH EVERY MORNING 30 MINUTES BEFORE MORNING MEAL TAKE ONE CAPSULE BY MOUTH EVERY MORNING 30 MINUTES BEFORE MORNING MEAL SOLD: 08/04/2021 [facility] 10 mg 04/19/2021 12:00:00 AM EDT capsule,delayed release (DR/EC) 30 TAKE ONE CAPSULE BY MOUTH EVERY MORNING 30 MINUTES BEFORE MORNING MEAL TAKE ONE CAPSULE BY MOUTH EVERY MORNING 30 MINUTES BEFORE MORNING MEAL SOLD: 07/02/2021 [facility] Omeprazole 10 MG Delayed Release Oral Capsule Omeprazole 10 MG 04/19/2021 12:00:00 AM EDT active Omeprazo le 10 MG eCW1 ([facility]) 10 mg 04/19/2021 12:00:00 AM EDT capsule,delayed release (DR/EC) 30 TAKE ONE CAPSULE BY MOUTH EVERY MORNING 30 MINUTES BEFORE MORNING MEAL TAKE ONE CAPSULE BY MOUTH EVERY MORNING 30 MINUTES BEFORE MORNING MEAL SOLD: 06/02/2021 [facility] Omeprazole 10 MG Delayed Release Oral Capsule Omeprazole 10 MG 04/19/2021 12:00:00 AM EDT active Omeprazo le 10 MG eCW1 ([facility]) Omeprazole 10 MG Delayed Release Oral Capsule Omeprazole 10 MG 04/19/2021 12:00:00 AM EDT active Omeprazo le 10 MG eCW1 ([facility]) Omeprazole 10 MG Delayed Release Oral Capsule Omeprazole 10 MG 04/19/2021 12:00:00 AM EDT active Omeprazo le 10 MG eCW1 ([facility]) Omeprazole 10 MG Delayed Release Oral Capsule Omeprazole 10 MG 04/19/2021 12:00:00 AM EDT active Omeprazo le 10 MG eCW1 ([facility]) Zofran ODT 4 MG UNK 04/19/2021 12:00:00 AM EDT 1.0 {tablet_on_the_tongue_and_allow_to_dissolve} active Zofran ODT 4 MG eCW1 ([facility]) Omeprazole 10 MG Delayed Release Oral Capsule Omeprazole 10 MG 04/19/2021 12:00:00 AM EDT active Omeprazo le 10 MG eCW1 ([facility]) Zofran ODT 4 MG UNK 04/19/2021 12:00:00 AM EDT 1.0 {tablet_on_the_tongue_and_allow_to_dissolve} active Zofran ODT 4 MG eCW1 ([facility]) 10 mg 04/19/2021 12:00:00 AM EDT capsule,delayed release (DR/EC) 30 TAKE ONE CAPSULE BY MOUTH EVERY MORNING 30 MINUTES BEFORE MORNING MEAL TAKE ONE CAPSULE BY MOUTH EVERY MORNING 30 MINUTES BEFORE MORNING MEAL SOLD: 04/19/2021 [facility] Ondansetron 4 MG Disintegrating Oral Tablet ONDANSETRON 04/19/2021 12:00:00 AM EDT tablet,disintegrating 30 DISSOLVE O NE TABLET ON TONGUE EVERY 8 HOURS NEEDED FOR NAUSEA DISSOLVE ONE TABLET ON TONGUE EVERY 8 HO URS NEEDED FOR NAUSEA SOLD: 04/19/2021 [facility] Zofran ODT 4 MG UNK 04/19/2021 12:00:00 AM EDT 1.0 {tablet_on_the_tongue_and_allow_to_dissolve} active Zofran ODT 4 MG eCW1 ([facility]) Omeprazole 10 MG Delayed Release Oral Capsule Omeprazole 10 MG 04/19/2021 12:00:00 AM EDT active Omeprazo le 10 MG eCW1 ([facility]) Zofran ODT 4 MG UNK 04/19/2021 12:00:00 AM EDT 1.0 {tablet_on_the_tongue_and_allow_to_dissolve} active Zofran ODT 4 MG eCW1 ([facility]) Zofran ODT 4 MG UNK 04/19/2021 12:00:00 AM EDT 1.0 {tablet_on_the_tongue_and_allow_to_dissolve} active Zofran ODT 4 MG eCW1 ([facility]) Zofran ODT 4 MG UNK 04/19/2021 12:00:00 AM EDT 1.0 {tablet_on_the_tongue_and_allow_to_dissolve} active Zofran ODT 4 MG eCW1 ([facility]) Omeprazole 10 MG Delayed Release Oral Capsule Omeprazole 10 MG 04/19/2021 12:00:00 AM EDT active Omeprazo le 10 MG eCW1 ([facility]) Zofran ODT 4 MG UNK 04/19/2021 12:00:00 AM EDT 1.0 {tablet_on_the_tongue_and_allow_to_dissolve} active Zofran ODT 4 MG eCW1 ([facility]) 500 mg 04/02/2021 12:00:00 AM EDT tablet 60 TAKE ONE TABLET BY MOUTH TWICE A DAY WITH FOOD TAKE ONE TABLET BY MOUTH TWICE A DAY WITH FOOD SOLD: 021 [facility] ALONDRA 21 Day Pack 1.5-30 mg-mcg NORETHINDRONE AC-ETH ESTRADIOL 04/02/2021 12:00:00 AM EDT tablet 21 TAKE ONE TABLET BY MOUTH EVERY DAY TAKE ONE TABLET BY MOUTH EVERY DAY SOLD: 04/24/2021 [facility] ALONDRA .02/21 21 Day Pack 1.5-30 mg-mcg NORETHINDRONE AC-ETH ESTRADIOL 04/02/2021 12:00:00 AM EDT tablet 21 TAKE ONE TABLET BY MOUTH EVERY DAY TAKE ONE TABLET BY MOUTH EVERY DAY SOLD: 05/16/2021 [facility] ALONDRA 1.5/30 21 Day Pack 1.5-30 mg-mcg NORETHINDRONE AC-ETH ESTRADIOL 04/02/2021 12:00:00 AM EDT tablet 21 TAKE ONE TABLET BY MOUTH EVERY DAY TAKE ONE TABLET BY MOUTH EVERY DAY SOLD: 04/03/2021 [facility] 500 mg 04/02/2021 12:00:00 AM EDT tablet 60 TAKE ONE TABLET BY MOUTH TWICE A DAY WITH FOOD TAKE ONE TABLET BY MOUTH TWICE A DAY WITH FOOD SOLD: 021 [facility] Naproxen 500 MG Oral Tablet Naproxen 04/02/2021 12:00:00 AM EDT ORAL active MEDENT ([facility]) Loestrin 1.5/30 (21) 1.5-30 MG-MCG Loestrin 1.5/30 (21) 1.5- 30 MG-MCG 03/31/2021 12:00:00 AM EDT 1.0 {tablet} active Loestrin 1.5/30 (21) 1.5-30 MG-MCG eCW1 ([facility]) Loestrin 1.5/30 (21) 1.5-30 MG-MCG Loestrin 1.5/30 (21) 1.5- 30 MG-MCG 03/31/2021 12:00:00 AM EDT 1.0 {tablet} active Loestrin 1.5/30 (21) 1.5-30 MG-MCG eCW1 ([facility]) Loestrin 1.5/30 (21) 1.5-30 MG-MCG Loestrin 1.5/30 (21) 1.5- 30 MG-MCG 03/31/2021 12:00:00 AM EDT 1.0 {tablet} active Loestrin 1.5/30 (21) 1.5-30 MG-MCG eCW1 ([facility]) Loestrin 1.5/30 (21) 1.5-30 MG-MCG Loestrin 1.5/30 (21) 1.5- 30 MG-MCG 03/31/2021 12:00:00 AM EDT 1.0 {tablet} active Loestrin 1.5/30 (21) 1.5-30 MG-MCG eCW1 ([facility]) Loestrin 1.5/30 (21) 1.5-30 MG-MCG Loestrin 1.5/30 (21) 1.5- 30 MG-MCG 03/31/2021 12:00:00 AM EDT 1.0 {tablet} active Loestrin 1.5/30 (21) 1.5-30 MG-MCG eCW1 ([facility]) Loestrin 1.5/30 (21) 1.5-30 MG-MCG Loestrin 1.5/30 (21) 1.5- 30 MG-MCG 03/31/2021 12:00:00 AM EDT 1.0 {tablet} active Loestrin 1.5/30 (21) 1.5-30 MG-MCG eCW1 ([facility]) Loestrin 1.5/30 (21) 1.5-30 MG-MCG Loestrin 1.5/30 (21) 1.5- 30 MG-MCG 03/31/2021 12:00:00 AM EDT 1.0 {tablet} active Loestrin 1.5/30 (21) 1.5-30 MG-MCG eCW1 ([facility]) Loestrin 1.5/30 (21) 1.5-30 MG-MCG Loestrin 1.5/30 (21) 1.5- 30 MG-MCG 03/31/2021 12:00:00 AM EDT 1.0 {tablet} active Loestrin 1.5/30 (21) 1.5-30 MG-MCG eCW1 ([facility]) Loestrin 1.5/30 (21) 1.5-30 MG-MCG Loestrin 1.5/30 (21) 1.5- 30 MG-MCG 03/31/2021 12:00:00 AM EDT 1.0 {tablet} active Loestrin 1.5/30 (21) 1.5-30 MG-MCG eCW1 ([facility]) Loestrin 1.5/30 (21) 1.5-30 MG-MCG Loestrin 1.5/30 (21) 1.5- 30 MG-MCG 03/31/2021 12:00:00 AM EDT 1.0 {tablet} active Loestrin 1.5/30 (21) 1.5-30 MG-MCG eCW1 ([facility]) Loestrin 1.5/30 (21) 1.5-30 MG-MCG Loestrin 1.5/30 (21) 1.5- 30 MG-MCG 03/31/2021 12:00:00 AM EDT 1.0 {tablet} active Loestrin 1.5/30 (21) 1.5-30 MG-MCG eCW1 ([facility]) 4 mg 03/24/2021 12:00:00 AM EDT tablet 90 TAKE ONE TABLET BY MOUTH THREE TIMES A DAY TAKE ONE TABLET BY MOUTH THREE TIMES A DAY SOLD: 03/24/2021 [facility] tizanidine 4 MG Oral Capsule Tizanidine HCL 03/24/2021 12:00:00 AM EDT ORAL completed MEDENT ([facility] ) Seasonique 0.15-0.03 &0.01 MG Seasonique 0.15-0.03 &0.01 MG 03/17/2021 12:00:00 AM EDT 1.0 {tablet} active Seasonique 0.15-0.03 &0.01 MG eCW1 ([facility]) Seasonique 0.15-0.03 &0.01 MG Seasonique 0.15-0.03 &0.01 MG 03/17/2021 12:00:00 AM EDT 1.0 {tablet} active Seasonique 0.15-0.03 &0.01 MG eCW1 ([facility]) Seasonique 0.15-0.03 &0.01 MG Seasonique 0.15-0.03 &0.01 MG 03/17/2021 12:00:00 AM EDT 1.0 {tablet} suspended Seasoniq ue 0.15-0.03 &0.01 MG eCW1 ([facility]) Seasonique 0.15-0.03 &0.01 MG Seasonique 0.15-0.03 &0.01 MG 03/17/2021 12:00:00 AM EDT 1.0 {tablet} suspended Seasoniq ue 0.15-0.03 &0.01 MG eCW1 ([facility]) Seasonique 0.15-0.03 &0.01 MG Seasonique 0.15-0.03 &0.01 MG 03/17/2021 12:00:00 AM EDT 1.0 {tablet} suspended Seasoniq ue 0.15-0.03 &0.01 MG eCW1 ([facility]) Seasonique 0.15-0.03 &0.01 MG Seasonique 0.15-0.03 &0.01 MG 03/17/2021 12:00:00 AM EDT 1.0 {tablet} suspended Seasoniq ue 0.15-0.03 &0.01 MG eCW1 ([facility]) Seasonique 0.15-0.03 &0.01 MG Seasonique 0.15-0.03 &0.01 MG 03/17/2021 12:00:00 AM EDT 1.0 {tablet} suspended Seasoniq ue 0.15-0.03 &0.01 MG eCW1 ([facility]) Seasonique 0.15-0.03 &0.01 MG Seasonique 0.15-0.03 &0.01 MG 03/17/2021 12:00:00 AM EDT 1.0 {tablet} suspended Seasoniq ue 0.15-0.03 &0.01 MG eCW1 ([facility]) Seasonique 0.15-0.03 &0.01 MG Seasonique 0.15-0.03 &0.01 MG 03/17/2021 12:00:00 AM EDT 1.0 {tablet} suspended Seasoniq ue 0.15-0.03 &0.01 MG eCW1 ([facility]) Seasonique 0.15-0.03 &0.01 MG Seasonique 0.15-0.03 &0.01 MG 03/17/2021 12:00:00 AM EDT 1.0 {tablet} suspended Seasoniq ue 0.15-0.03 &0.01 MG eCW1 ([facility]) Seasonique 0.15-0.03 &0.01 MG Seasonique 0.15-0.03 &0.01 MG 03/17/2021 12:00:00 AM EDT 1.0 {tablet} suspended Seasoniq ue 0.15-0.03 &0.01 MG eCW1 ([facility]) 300 mg 03/10/2021 12:00:00 AM EDT capsule 90 TAKE ONE CAPSULE BY MOUTH AT BEDTIME FOR 7 DAYS, THEN TAKE ONE CAPSULE BY MOUTH TWICE A DAY FOR 7 DAYS, THEN TAKE ONE CAPSULE BY MOUTH THREE TIMES A DAY MAXIMUM DAILY DOSE = 3 TAKE ONE CAPSULE BY MOUTH AT BEDTIME FOR 7 DAYS, THEN TAKE ONE CAPSULE BY MOUTH TWICE A DAY FOR 7 DAYS, THEN TAKE ONE CAPSULE BY MOUTH THREE TIMES A DAY MAXIMUM DAILY DOSE = 3 SOLD: 03/11/2021 [facility] 4 mg 03/10/2021 12:00:00 AM EDT tablets,dose pack 21 TAKE BY MOUTH PER PACKAGE INSTRUCTIONS TAKE BY MOUTH PER PACKAGE INSTRUCTIONS SOLD: 03/11/2021 [facility] Methylprednisolone 4 MG Oral Tablet [Medrol] Medrol 12:00:00 AM EDT completed MEDENT ([facility] ) Naproxen 500 MG Oral Tablet Naproxen 500 MG 03/04/2021 12:00:00 AM EDT active Naproxen 500 MG eCW1 ([facility]) Naproxen 500 MG Oral Tablet Naproxen 500 MG 03/04/2021 12:00:00 AM EDT active Naproxen 500 MG eCW1 ([facility]) Naproxen 500 MG Oral Tablet Naproxen 500 MG 03/04/2021 12:00:00 AM EDT active Naproxen 500 MG eCW1 ([facility]) Naproxen 500 MG Oral Tablet Naproxen 500 MG 03/04/2021 12:00:00 AM EDT active Naproxen 500 MG eCW1 ([facility]) Naproxen 500 MG Oral Tablet Naproxen 500 MG 03/04/2021 12:00:00 AM EDT active Naproxen 500 MG eCW1 ([facility]) Naproxen 500 MG Oral Tablet Naproxen 500 MG 03/04/2021 12:00:00 AM EDT active Naproxen 500 MG eCW1 ([facility]) Naproxen 500 MG Oral Tablet Naproxen 500 MG 03/04/2021 12:00:00 AM EDT active Naproxen 500 MG eCW1 ([facility]) Naproxen 500 MG Oral Tablet Naproxen 500 MG 03/04/2021 12:00:00 AM EDT active Naproxen 500 MG eCW1 ([facility]) Naproxen 500 MG Oral Tablet Naproxen 500 MG 03/04/2021 12:00:00 AM EDT active Naproxen 500 MG eCW1 ([facility]) Naproxen 500 MG Oral Tablet Naproxen 500 MG 03/04/2021 12:00:00 AM EDT active Naproxen 500 MG eCW1 ([facility]) Naproxen 500 MG Oral Tablet Naproxen 500 MG 03/04/2021 12:00:00 AM EDT active Naproxen 500 MG eCW1 ([facility]) Naproxen 500 MG Oral Tablet Naproxen 500 MG 03/04/2021 12:00:00 AM EDT active Naproxen 500 MG eCW1 ([facility]) 500 mg 03/04/2021 12:00:00 AM EDT tablet 60 TAKE ONE TABLET BY MOUTH EVERY 12 HOURS WITH FOOD TAKE ONE TABLET BY MOUTH EVERY 12 HOURS WITH FOOD SOLD : 03/07/2021 [facility] Naproxen 500 MG Oral Tablet Naproxen 500 MG 03/04/2021 12:00:00 AM EDT active Naproxen 500 MG eCW1 ([facility]) Fluticasone propionate 0.05 MG/ACTUAT Metered Dose [facility] [place] 50 mcg/actuation FLUTICASONE PROPIONATE 03/02/2021 12:00:00 AM EDT spray,suspension 16 SPRAY ONE SPRAY IN EACH NOSTRIL EVERY DAY NEEDED SPRAY ONE SPRAY IN EACH NOSTRIL EVERY DAY NEEDED SOLD: 06/02/2021 [facility] 75 mcg 03/02/2021 12:00:00 AM EDT tablet 90 TAKE ONE TABLET BY MOUTH EVERY MORNING ON AN EMPTY STOMACH TAKE ONE TABLET BY MOUTH EVERY MORNING O N AN EMPTY STOMACH SOLD: 03/02/2021 [facility] Citalopram 40 MG Oral Tablet CITALOPRAM HYDROBROMIDE 03/02/2021 12:00:00 AM EDT tablet 90 TAKE ONE TABLET BY MOUTH EVERY D AY TAKE ONE TABLET BY MOUTH EVERY DAY SOLD: 06/02/2021 [facility] 50 mcg/actuation 03/02/2021 12:00:00 AM EDT spray,suspension 16 SPRAY ONE SPRAY IN EACH NOSTRIL EVERY DAY NEEDED SPRAY ONE SPRAY IN EACH NOSTRIL EVERY DAY NEEDED SOLD: 03/02/2021 [facility] atorvastatin 40 MG Oral Tablet ATORVASTATIN CALCIUM 03/02/2021 1 2:00:00 AM EDT tablet 90 TAKE ONE TABLET BY MOUTH EVERY D AY TAKE ONE TABLET BY MOUTH EVERY DAY SOLD: 06/02/2021 [facility] 150 mg 03/02/2021 12:00:00 AM EDT tablet 90 TAKE ONE TABLET BY MOUTH AT BEDTIME NEEDED TAKE ONE TABLET BY MOUTH AT BEDTIME NEEDED SOLD: [facility] 75 mcg 03/02/2021 12:00:00 AM EDT tablet 90 TAKE ONE TABLET BY MOUTH EVERY MORNING ON AN EMPTY STOMACH TAKE ONE TABLET BY MOUTH EVERY MORNING O N AN EMPTY STOMACH SOLD: 06/02/2021 [facility] 10 mg 03/02/2021 12:00:00 AM EDT tablet 30 TAKE ONE TABLET BY MOUTH EVERY DAY TAKE ONE TABLET BY MOUTH EVERY DAY SOLD: 08/04/2021 [facility] atorvastatin 40 MG Oral Tablet ATORVASTATIN CALCIUM 03/02/2021 1 2:00:00 AM EDT tablet 90 TAKE ONE TABLET BY MOUTH EVERY D AY TAKE ONE TABLET BY MOUTH EVERY DAY SOLD: 03/02/2021 [facility] Citalopram 40 MG Oral Tablet CITALOPRAM HYDROBROMIDE 03/02/2021 12:00:00 AM EDT tablet 90 TAKE ONE TABLET BY MOUTH EVERY D AY TAKE ONE TABLET BY MOUTH EVERY DAY SOLD: 03/02/2021 [facility] 150 mg 03/02/2021 12:00:00 AM EDT tablet 90 TAKE ONE TABLET BY MOUTH AT BEDTIME NEEDED TAKE ONE TABLET BY MOUTH AT BEDTIME NEEDED SOLD: [facility] 10 mg 03/02/2021 12:00:00 AM EDT tablet 30 TAKE ONE TABLET BY MOUTH EVERY DAY TAKE ONE TABLET BY MOUTH EVERY DAY SOLD: 05/27/2021 [facility] 10 mg 03/02/2021 12:00:00 AM EDT tablet 30 TAKE ONE TABLET BY MOUTH EVERY DAY TAKE ONE TABLET BY MOUTH EVERY DAY SOLD: 07/02/2021 [facility] 10 mg 03/02/2021 12:00:00 AM EDT tablet 30 TAKE ONE TABLET BY MOUTH EVERY DAY TAKE ONE TABLET BY MOUTH EVERY DAY SOLD: 03/02/2021 [facility] 10 mg 03/02/2021 12:00:00 AM EDT tablet 30 TAKE ONE TABLET BY MOUTH EVERY DAY TAKE ONE TABLET BY MOUTH EVERY DAY SOLD: 04/19/2021 [facility] Ketorolac Tromethamine 10 MG Oral Tablet Ketorolac Trometham ine 10 MG 02/24/2021 12:00:00 AM EDT active Ketorol ac Tromethamine 10 MG eCW1 ([facility]) tizanidine 4 MG Oral Tablet TIZANIDINE HCL 02/24/2021 12:00:00 AM EDT tablet 15 TAKE ONE TABLET BY MOUTH THREE TIMES A DAY NEEDED T JOYCE ONE TABLET BY MOUTH THREE TIMES A DAY NEEDED SOLD: 02/24/2021 [facility] Ketorolac Tromethamine 10 MG Oral Tablet Ketorolac Trometham ine 10 MG 02/24/2021 12:00:00 AM EDT suspended Keto rolac Tromethamine 10 MG eCW1 ([facility]) Ketorolac Tromethamine 10 MG Oral Tablet Ketorolac Trometham ine 10 MG 02/24/2021 12:00:00 AM EDT suspended Keto rolac Tromethamine 10 MG eCW1 ([facility]) Ketorolac Tromethamine 10 MG Oral Tablet Ketorolac Trometham ine 10 MG 02/24/2021 12:00:00 AM EDT active Ketorol ac Tromethamine 10 MG eCW1 ([facility]) tizanidine 4 MG Oral Tablet tiZANidine HCl 4 MG tiZANidine H Cl 4 MG 02/24/2021 12:00:00 AM EDT 1.0 {tablet_as_needed} active tiZANidine HCl 4 MG eCW1 ([facility]) tizanidine 4 MG Oral Tablet tiZANidine HCl 4 MG tiZANidine H Cl 4 MG 02/24/2021 12:00:00 AM EDT 1.0 {tablet_as_needed} suspended tiZANidine HCl 4 MG eCW1 ([facility]) Ketorolac Tromethamine 10 MG Oral Tablet Ketorolac Trometham ine 10 MG 02/24/2021 12:00:00 AM EDT suspended Keto rolac Tromethamine 10 MG eCW1 ([facility]) Ketorolac Tromethamine 10 MG Oral Tablet Ketorolac Trometham ine 10 MG 02/24/2021 12:00:00 AM EDT active Ketorol ac Tromethamine 10 MG eCW1 ([facility]) Ketorolac Tromethamine 10 MG Oral Tablet Ketorolac Trometham ine 10 MG 02/24/2021 12:00:00 AM EDT active Ketorol ac Tromethamine 10 MG eCW1 ([facility]) tizanidine 4 MG Oral Tablet Tizanidine HCl 4 MG Tizanidine H Cl 4 MG 02/24/2021 12:00:00 AM EDT 1.0 {tablet_as_needed} active Tizanidine HCl 4 MG eCW1 ([facility]) tizanidine 4 MG Oral Tablet tiZANidine HCl 4 MG tiZANidine H Cl 4 MG 02/24/2021 12:00:00 AM EDT 1.0 {tablet_as_needed} suspended tiZANidine HCl 4 MG eCW1 ([facility]) tizanidine 4 MG Oral Tablet tiZANidine HCl 4 MG tiZANidine H Cl 4 MG 02/24/2021 12:00:00 AM EDT 1.0 {tablet_as_needed} active tiZANidine HCl 4 MG eCW1 ([facility]) tizanidine 4 MG Oral Tablet tiZANidine HCl 4 MG tiZANidine H Cl 4 MG 02/24/2021 12:00:00 AM EDT 1.0 {tablet_as_needed} suspended tiZANidine HCl 4 MG eCW1 ([facility]) Ketorolac Tromethamine 10 MG Oral Tablet Ketorolac Trometham ine 10 MG 02/24/2021 12:00:00 AM EDT suspended Keto rolac Tromethamine 10 MG eCW1 ([facility]) tizanidine 4 MG Oral Tablet tiZANidine HCl 4 MG tiZANidine H Cl 4 MG 02/24/2021 12:00:00 AM EDT 1.0 {tablet_as_needed} suspended tiZANidine HCl 4 MG eCW1 ([facility]) tizanidine 4 MG Oral Tablet tiZANidine HCl 4 MG tiZANidine H Cl 4 MG 02/24/2021 12:00:00 AM EDT 1.0 {tablet_as_needed} active tiZANidine HCl 4 MG eCW1 ([facility]) tizanidine 4 MG Oral Tablet tiZANidine HCl 4 MG tiZANidine H Cl 4 MG 02/24/2021 12:00:00 AM EDT 1.0 {tablet_as_needed} suspended tiZANidine HCl 4 MG eCW1 ([facility]) Ketorolac Tromethamine 10 MG Oral Tablet Ketorolac Trometham ine 10 MG 02/24/2021 12:00:00 AM EDT active Ketorol ac Tromethamine 10 MG eCW1 ([facility]) tizanidine 4 MG Oral Tablet tiZANidine HCl 4 MG tiZANidine H Cl 4 MG 02/24/2021 12:00:00 AM EDT 1.0 {tablet_as_needed} suspended tiZANidine HCl 4 MG eCW1 ([facility]) tizanidine 4 MG Oral Tablet tiZANidine HCl 4 MG tiZANidine H Cl 4 MG 02/24/2021 12:00:00 AM EDT 1.0 {tablet_as_needed} suspended tiZANidine HCl 4 MG eCW1 ([facility]) Ketorolac Tromethamine 10 MG Oral Tablet Ketorolac Trometham ine 10 MG 02/24/2021 12:00:00 AM EDT active Ketorol ac Tromethamine 10 MG eCW1 ([facility]) Ketorolac Tromethamine 10 MG Oral Tablet Ketorolac Trometham ine 10 MG 02/24/2021 12:00:00 AM EDT suspended Keto rolac Tromethamine 10 MG eCW1 ([facility]) Ketorolac Tromethamine 10 MG Oral Tablet Ketorolac Trometham ine 10 MG 02/24/2021 12:00:00 AM EDT suspended Keto rolac Tromethamine 10 MG eCW1 ([facility]) Ketorolac Tromethamine 10 MG Oral Tablet Ketorolac Trometham ine 10 MG 02/24/2021 12:00:00 AM EDT active Ketorol ac Tromethamine 10 MG eCW1 ([facility]) tizanidine 4 MG Oral Tablet tiZANidine HCl 4 MG tiZANidine H Cl 4 MG 02/24/2021 12:00:00 AM EDT 1.0 {tablet_as_needed} suspended tiZANidine HCl 4 MG eCW1 ([facility]) Ketorolac Tromethamine 10 MG Oral Tablet Ketorolac Trometham ine 10 MG 02/24/2021 12:00:00 AM EDT suspended Keto rolac Tromethamine 10 MG eCW1 ([facility]) tizanidine 4 MG Oral Tablet tiZANidine HCl 4 MG tiZANidine H Cl 4 MG 02/24/2021 12:00:00 AM EDT 1.0 {tablet_as_needed} suspended tiZANidine HCl 4 MG eCW1 ([facility]) tizanidine 4 MG Oral Tablet tiZANidine HCl 4 MG tiZANidine H Cl 4 MG 02/24/2021 12:00:00 AM EDT 1.0 {tablet_as_needed} suspended tiZANidine HCl 4 MG eCW1 ([facility]) tizanidine 4 MG Oral Tablet Tizanidine HCl 4 MG Tizanidine H Cl 4 MG 02/24/2021 12:00:00 AM EDT 1.0 {tablet_as_needed} active Tizanidine HCl 4 MG eCW1 ([facility]) 10 mg 02/24/2021 12:00:00 AM EDT tablet 20 TAKE ONE TABLET BY MOUTH EVERY 6 HOURS NEEDED WITH FOOD OR MILK TAKE ONE TABLET BY MOUTH EVERY 6 HOURS A S NEEDED WITH FOOD OR MILK SOLD: 02/24/2021 [facility] tizanidine 4 MG Oral Tablet tiZANidine HCl 4 MG tiZANidine H Cl 4 MG 02/24/2021 12:00:00 AM EDT 1.0 {tablet_as_needed} suspended tiZANidine HCl 4 MG eCW1 ([facility]) Ketorolac Tromethamine 10 MG Oral Tablet Ketorolac Trometham ine 10 MG 02/24/2021 12:00:00 AM EDT suspended Keto rolac Tromethamine 10 MG eCW1 ([facility]) Ketorolac Tromethamine 10 MG Oral Tablet Ketorolac Trometham ine 10 MG 02/24/2021 12:00:00 AM EDT suspended Keto rolac Tromethamine 10 MG eCW1 ([facility]) Naproxen 500 MG Oral Tablet Naproxen 500 MG 02/02/2021 12:00:00 AM EDT active Naproxen 500 MG eCW1 ([facility]) 500 mg 02/02/2021 12:00:00 AM EDT tablet 20 TAKE ONE TABLET BY MOUTH EVERY 12 HOURS FOR 10 DAYS WITH FOOD OR MILK TAKE ONE TABLET BY MOUTH EVERY 12 HOURS FOR 10 DAYS WITH FOOD OR MILK SOLD: 02/02/2021 [facility] Augmentin 875-125 MG UNK 10/26/2020 12:00:00 AM EST 1.0 {tab let} suspended Augmentin 875-125 MG eCW1 ([facility]) 875-125 mg 10/26/2020 12:00:00 AM EST tablet 20 TAKE ONE TABLET BY MOUTH TWICE A DAY FOR 10 DAYS TAKE ONE TABLET BY MOUTH TWICE A DAY FOR 10 DAYS SOLD: 10/26/2020 [facility] Augmentin 875-125 MG UNK 10/26/2020 12:00:00 AM EST 1.0 {tablet } active Augmentin 875-125 MG eCW1 ([facility]) Augmentin 875-125 MG UNK 10/26/2020 12:00:00 AM EST 1.0 {tablet } active Augmentin 875-125 MG eCW1 ([facility]) Augmentin 875-125 MG UNK 10/26/2020 12:00:00 AM EST 1.0 {tablet } active Augmentin 875-125 MG eCW1 ([facility]) Augmentin 875-125 MG UNK 10/26/2020 12:00:00 AM EST 1.0 {tab let} suspended Augmentin 875-125 MG eCW1 ([facility]) Augmentin 875-125 MG UNK 10/26/2020 12:00:00 AM EST 1.0 {tablet } active Augmentin 875-125 MG eCW1 ([facility]) Augmentin 875-125 MG UNK 10/26/2020 12:00:00 AM EST 1.0 {tab let} suspended Augmentin 875-125 MG eCW1 ([facility]) Augmentin 875-125 MG UNK 10/26/2020 12:00:00 AM EST 1.0 {tab let} suspended Augmentin 875-125 MG eCW1 ([facility]) Augmentin 875-125 MG UNK 10/26/2020 12:00:00 AM EST 1.0 {tab let} suspended Augmentin 875-125 MG eCW1 ([facility]) Augmentin 875-125 MG UNK 10/26/2020 12:00:00 AM EST 1.0 {tab let} suspended Augmentin 875-125 MG eCW1 ([facility]) Augmentin 875-125 MG UNK 10/26/2020 12:00:00 AM EST 1.0 {tab let} suspended Augmentin 875-125 MG eCW1 ([facility]) Augmentin 875-125 MG UNK 10/26/2020 12:00:00 AM EST 1.0 {tab let} suspended Augmentin 875-125 MG eCW1 ([facility]) Augmentin 875-125 MG UNK 10/26/2020 12:00:00 AM EST 1.0 {tab let} suspended Augmentin 875-125 MG eCW1 ([facility]) Augmentin 875-125 MG UNK 10/26/2020 12:00:00 AM EST 1.0 {tab let} suspended Augmentin 875-125 MG eCW1 ([facility]) Augmentin 875-125 MG UNK 10/26/2020 12:00:00 AM EST 1.0 {tablet } active Augmentin 875-125 MG eCW1 ([facility]) Augmentin 875-125 MG UNK 10/26/2020 12:00:00 AM EST 1.0 {tab let} suspended Augmentin 875-125 MG eCW1 ([facility]) Augmentin 875-125 MG UNK 10/26/2020 12:00:00 AM EST 1.0 {tablet } active Augmentin 875-125 MG eCW1 ([facility]) Augmentin 875-125 MG UNK 10/26/2020 12:00:00 AM EST 1.0 {tablet } active Augmentin 875-125 MG eCW1 ([facility]) Augmentin 875-125 MG UNK 10/26/2020 12:00:00 AM EST 1.0 {tab let} suspended Augmentin 875-125 MG eCW1 ([facility]) Augmentin 875-125 MG UNK 10/26/2020 12:00:00 AM EST 1.0 {tablet } active Augmentin 875-125 MG eCW1 ([facility]) 10 mg 09/09/2020 12:00:00 AM EST tablet 30 TAKE ONE TABLET BY MOUTH EVERY DAY TAKE ONE TABLET BY MOUTH EVERY DAY SOLD: 11/29/2020 [facility] 10 mg 09/09/2020 12:00:00 AM EST tablet 30 TAKE ONE TABLET BY MOUTH EVERY DAY TAKE ONE TABLET BY MOUTH EVERY DAY SOLD: 09/23/2020 [facility] 10 mg 09/09/2020 12:00:00 AM EST tablet 30 TAKE ONE TABLET BY MOUTH EVERY DAY TAKE ONE TABLET BY MOUTH EVERY DAY SOLD: 12/29/2020 [facility] 10 mg 09/09/2020 12:00:00 AM EST tablet 30 TAKE ONE TABLET BY MOUTH EVERY DAY TAKE ONE TABLET BY MOUTH EVERY DAY SOLD: 01/29/2021 [facility] Loratadine 10 MG Oral Tablet [Claritin] Claritin 10 MG [facility] 10 MG 09/08/2020 12:00:00 AM EST 1.0 {tablet} active C laritin 10 MG eCW1 ([facility]) Loratadine 10 MG Oral Tablet [Claritin] Claritin 10 MG Ess[facility] tin 10 MG 09/08/2020 12:00:00 AM EST 1.0 {tablet} active C laritin 10 MG eCW1 ([facility]) Loratadine 10 MG Oral Tablet [Claritin] Claritin 10 MG Ess[facility] tin 10 MG 09/08/2020 12:00:00 AM EST 1.0 {tablet} active C laritin 10 MG eCW1 ([facility]) Loratadine 10 MG Oral Tablet [Claritin] Claritin 10 MG Ess[facility] tin 10 MG 09/08/2020 12:00:00 AM EST 1.0 {tablet} active C laritin 10 MG eCW1 ([facility]) Loratadine 10 MG Oral Tablet [Claritin] Claritin 10 MG [facility] 10 MG 09/08/2020 12:00:00 AM EST 1.0 {tablet} active C laritin 10 MG eCW1 ([facility]) Loratadine 10 MG Oral Tablet [Claritin] Claritin 10 MG [facility] tin 10 MG 09/08/2020 12:00:00 AM EST 1.0 {tablet} active C laritin 10 MG eCW1 ([facility]) Loratadine 10 MG Oral Tablet [Claritin] Claritin 10 MG [facility] tin 10 MG 09/08/2020 12:00:00 AM EST 1.0 {tablet} active C laritin 10 MG eCW1 ([facility]) Loratadine 10 MG Oral Tablet [Claritin] Claritin 10 MG [facility] tin 10 MG 09/08/2020 12:00:00 AM EST 1.0 {tablet} active C laritin 10 MG eCW1 ([facility]) Loratadine 10 MG Oral Tablet [Claritin] Claritin 10 MG [facility] 10 MG 09/08/2020 12:00:00 AM EST 1.0 {tablet} active C laritin 10 MG eCW1 ([facility]) Loratadine 10 MG Oral Tablet [Claritin] Claritin 10 MG [facility] 10 MG 09/08/2020 12:00:00 AM EST 1.0 {tablet} active C laritin 10 MG eCW1 ([facility]) Loratadine 10 MG Oral Tablet [Claritin] Claritin 10 MG [facility] 10 MG 09/08/2020 12:00:00 AM EST 1.0 {tablet} active C laritin 10 MG eCW1 ([facility]) Loratadine 10 MG Oral Tablet [Claritin] Claritin 10 MG [facility] 10 MG 09/08/2020 12:00:00 AM EST 1.0 {tablet} active C laritin 10 MG eCW1 ([facility]) Loratadine 10 MG Oral Tablet [Claritin] Claritin 10 MG [facility] 10 MG 09/08/2020 12:00:00 AM EST 1.0 {tablet} active C laritin 10 MG eCW1 ([facility]) Loratadine 10 MG Oral Tablet [Claritin] Claritin 10 MG [facility] 10 MG 09/08/2020 12:00:00 AM EST 1.0 {tablet} active C laritin 10 MG eCW1 ([facility]) Loratadine 10 MG Oral Tablet [Claritin] Claritin 10 MG [facility] 10 MG 09/08/2020 12:00:00 AM EST 1.0 {tablet} active C laritin 10 MG eCW1 ([facility]) Loratadine 10 MG Oral Tablet [Claritin] Claritin 10 MG Ess[facility] tin 10 MG 09/08/2020 12:00:00 AM EST 1.0 {tablet} active C laritin 10 MG eCW1 ([facility]) Loratadine 10 MG Oral Tablet [Claritin] Claritin 10 MG Ess[facility] tin 10 MG 09/08/2020 12:00:00 AM EST 1.0 {tablet} active C laritin 10 MG eCW1 ([facility]) Loratadine 10 MG Oral Tablet [Claritin] Claritin 10 MG Essence tin 10 MG 09/08/2020 12:00:00 AM EST 1.0 {tablet} active C laritin 10 MG eCW1 ([facility]) Loratadine 10 MG Oral Tablet [Claritin] Claritin 10 MG Ess[facility] tin 10 MG 09/08/2020 12:00:00 AM EST 1.0 {tablet} active C laritin 10 MG eCW1 ([facility]) Loratadine 10 MG Oral Tablet [Claritin] Claritin 10 MG Ess[facility] tin 10 MG 09/08/2020 12:00:00 AM EST 1.0 {tablet} active C laritin 10 MG eCW1 ([facility]) Loratadine 10 MG Oral Tablet [Claritin] Claritin 10 MG Ess[facility] tin 10 MG 09/08/2020 12:00:00 AM EST 1.0 {tablet} active C laritin 10 MG eCW1 ([facility]) Citalopram 40 MG Oral Tablet CITALOPRAM HYDROBROMIDE 09/05/2020 12:00:00 AM EST tablet 90 TAKE ONE TABLET BY MOUTH EVERY D AY TAKE ONE TABLET BY MOUTH EVERY DAY SOLD: 09/05/2020 [facility] 50 mcg/actuation 09/05/2020 12:00:00 AM EST spray,suspension 16 SPRAY ONE SPRAY IN EACH NOSTRIL EVERY DAY NEEDED SPRAY ONE SPRAY IN EACH NOSTRIL EVERY DAY NEEDED SOLD: 11/29/2020 [facility] 150 mg 09/05/2020 12:00:00 AM EST tablet 90 TAKE ONE TABLET BY MOUTH AT BEDTIME NEEDED TAKE ONE TABLET BY MOUTH AT BEDTIME NEEDED SOLD: [facility] 150 mg 09/05/2020 12:00:00 AM EST tablet 30 TAKE ONE TABLET BY MOUTH AT BEDTIME NEEDED TAKE ONE TABLET BY MOUTH AT BEDTIME NEEDED SOLD: [facility] 150 mg 09/05/2020 12:00:00 AM EST tablet 30 TAKE ONE TABLET BY MOUTH AT BEDTIME NEEDED TAKE ONE TABLET BY MOUTH AT BEDTIME NEEDED SOLD: [facility] 150 mg 09/05/2020 12:00:00 AM EST tablet 30 TAKE ONE TABLET BY MOUTH AT BEDTIME NEEDED TAKE ONE TABLET BY MOUTH AT BEDTIME NEEDED SOLD: [facility] 50 mcg/actuation 09/05/2020 12:00:00 AM EST spray,suspension 16 SPRAY ONE SPRAY IN EACH NOSTRIL EVERY DAY NEEDED SPRAY ONE SPRAY IN EACH NOSTRIL EVERY DAY NEEDED SOLD: 09/05/2020 [facility] Citalopram 40 MG Oral Tablet CITALOPRAM HYDROBROMIDE 09/05/2020 12:00:00 AM EST tablet 30 TAKE ONE TABLET BY MOUTH EVERY D AY TAKE ONE TABLET BY MOUTH EVERY DAY SOLD: 11/29/2020 [facility] Citalopram 40 MG Oral Tablet CITALOPRAM HYDROBROMIDE 09/05/2020 12:00:00 AM EST tablet 30 TAKE ONE TABLET BY MOUTH EVERY D AY TAKE ONE TABLET BY MOUTH EVERY DAY SOLD: 12/29/2020 [facility] Citalopram 40 MG Oral Tablet CITALOPRAM HYDROBROMIDE 09/05/2020 12:00:00 AM EST tablet 30 TAKE ONE TABLET BY MOUTH EVERY D AY TAKE ONE TABLET BY MOUTH EVERY DAY SOLD: 01/29/2021 [facility] atorvastatin 40 MG Oral Tablet ATORVASTATIN CALCIUM 08/30/2020 1 2:00:00 AM EST tablet 30 TAKE ONE TABLET BY MOUTH EVERY D AY TAKE ONE TABLET BY MOUTH EVERY DAY SOLD: 11/29/2020 [facility] 75 mcg 08/30/2020 12:00:00 AM EST tablet 90 TAKE ONE TABLET BY MOUTH EVERY MORNING ON AN EMPTY STOMACH TAKE ONE TABLET BY MOUTH EVERY MORNING O N AN EMPTY STOMACH SOLD: 08/30/2020 [facility] atorvastatin 40 MG Oral Tablet ATORVASTATIN CALCIUM 08/30/2020 1 2:00:00 AM EST tablet 90 TAKE ONE TABLET BY MOUTH EVERY D AY TAKE ONE TABLET BY MOUTH EVERY DAY SOLD: 08/30/2020 [facility] 75 mcg 08/30/2020 12:00:00 AM EST tablet 30 TAKE ONE TABLET BY MOUTH EVERY MORNING ON AN EMPTY STOMACH TAKE ONE TABLET BY MOUTH EVERY MORNING O N AN EMPTY STOMACH SOLD: 11/29/2020 [facility] atorvastatin 40 MG Oral Tablet ATORVASTATIN CALCIUM 08/30/2020 1 2:00:00 AM EST tablet 30 TAKE ONE TABLET BY MOUTH EVERY D AY TAKE ONE TABLET BY MOUTH EVERY DAY SOLD: 01/29/2021 [facility] 75 mcg 08/30/2020 12:00:00 AM EST tablet 30 TAKE ONE TABLET BY MOUTH EVERY MORNING ON AN EMPTY STOMACH TAKE ONE TABLET BY MOUTH EVERY MORNING O N AN EMPTY STOMACH SOLD: 01/29/2021 [facility] atorvastatin 40 MG Oral Tablet ATORVASTATIN CALCIUM 08/30/2020 1 2:00:00 AM EST tablet 30 TAKE ONE TABLET BY MOUTH EVERY D AY TAKE ONE TABLET BY MOUTH EVERY DAY SOLD: 12/29/2020 [facility] 75 mcg 08/30/2020 12:00:00 AM EST tablet 30 TAKE ONE TABLET BY MOUTH EVERY MORNING ON AN EMPTY STOMACH TAKE ONE TABLET BY MOUTH EVERY MORNING O N AN EMPTY STOMACH SOLD: 12/29/2020 [facility] Citalopram 40 MG Oral Tablet CITALOPRAM HYDROBROMIDE 03/16/2020 12:00:00 AM EDT tablet 30 TAKE ONE TABLET BY MOUTH EVERY D AY TAKE ONE TABLET BY MOUTH EVERY DAY SOLD: 07/08/2020 [facility] atorvastatin 40 MG Oral Tablet ATORVASTATIN CALCIUM 03/16/2020 1 2:00:00 AM EDT tablet 24 TAKE ONE TABLET BY MOUTH EVERY D AY TAKE ONE TABLET BY MOUTH EVERY DAY SOLD: 07/11/2020 [facility] Citalopram 40 MG Oral Tablet CITALOPRAM HYDROBROMIDE 03/16/2020 12:00:00 AM EDT tablet 30 TAKE ONE TABLET BY MOUTH EVERY D AY TAKE ONE TABLET BY MOUTH EVERY DAY SOLD: 08/08/2020 [facility] 180 mg 03/16/2020 12:00:00 AM EDT tablet 30 TAKE ONE TABLET BY MOUTH EVERY DAY NEEDED TAKE ONE TABLET BY MOUTH EVERY DAY NEEDED SOLD: 07/11/2020 [facility] 150 mg 03/16/2020 12:00:00 AM EDT tablet 30 TAKE ONE TABLET BY MOUTH AT BEDTIME NEEDED TAKE ONE TABLET BY MOUTH AT BEDTIME NEEDED SOLD: [facility] 75 mcg 03/16/2020 12:00:00 AM EDT tablet 24 TAKE ONE TABLET BY MOUTH EVERY MORNING ON AN EMPTY STOMACH TAKE ONE TABLET BY MOUTH EVERY MORNING O N AN EMPTY STOMACH SOLD: 08/04/2020 [facility] atorvastatin 40 MG Oral Tablet ATORVASTATIN CALCIUM 03/16/2020 1 2:00:00 AM EDT tablet 24 TAKE ONE TABLET BY MOUTH EVERY D AY TAKE ONE TABLET BY MOUTH EVERY DAY SOLD: 08/04/2020 [facility] 150 mg 03/16/2020 12:00:00 AM EDT tablet 30 TAKE ONE TABLET BY MOUTH AT BEDTIME NEEDED TAKE ONE TABLET BY MOUTH AT BEDTIME NEEDED SOLD: [facility] Insurance Providers Payer name Policy type / Coverage type Policy ID Covered republican ID Covered republican's relationship to tucker Policy Tucker Plan Information [facility] Cayla/[facility] Health Maintenance Organization (HMO) [id number] Self [facility] I [id number] Self [id number] [facility] [id number] [facility] [id number] [facility] [id number] [facility] Health Maintenance Organization (HMO) [id number] Self [id number] [place] [id number] SP [id number] [facility] [id number] SP [id number] [place] [id number] SP [id number] Medicaid Dental P [id number] S [id number] MEDICAID [id number] SP [id number] R O [id number] S [id number] [facility] [id number] [facility] [id number] ANSI-Medicaid [id number] ANSI-Not a Secondary Insurance [id number] ANSI-Medicaid [id number] ANSI-Medicaid [id number] ANSI-Not a Secondary Insurance [id number] ANSI-Medicaid [id number] ANSI-Medicaid [id number] ANSI-Medicaid [id number] ANSI-Not a Secondary Insurance [id number] ANSI-Not a Secondary Insurance [id number] ANSI-Not a Secondary Insurance [id number] ANSI-Medicaid [id number] ANSI-Medicaid [id number] ANSI-Not a Secondary Insurance [id number] ANSI-Medicaid [id number] ANSI-Not a Secondary Insurance [id number] ANSI-Medicaid [id number] ANSI-Not a Secondary Insurance [id number] ANSI-Medicaid [id number] ANSI-Medicaid [id number] ANSI-Medicaid [id number] ANSI-Medicaid [id number] ANSI-Not a Secondary Insurance [id number] ANSI-Not a Secondary Insurance [id number] ANSI-Medicaid [id number] ANSI-Not a Secondary Insurance [id number] ANSI-Not a Secondary Insurance [id number] ANSI-Medicaid [id number] ANSI-Medicaid [id number] ANSI-Medicaid [id number] ANSI-Medicaid [id number] ANSI-Not a Secondary Insurance [id number] ANSI-Not a Secondary Insurance [id number] ANSI-Medicaid [id number] ANSI-Medicaid [id number] ANSI-Medicaid [id number] ANSI-Medicaid [id number] ANSI-Medicaid [id number] ANSI-Not a Secondary Insurance [id number] ANSI-Not a Secondary Insurance [id number] ANSI-Medicaid [id number] ANSI-Not a Secondary Insurance [id number] ANSI-Medicaid [id number] ANSI-Not a Secondary Insurance [id number] ANSI-Medicaid [id number] ANSI-Medicaid [id number] ANSI-Medicaid [id number] ANSI-Not a Secondary Insurance [id number] ANSI-Medicaid [id number] ANSI-Not a Secondary Insurance [id number] ANSI-Medicaid [id number] ANSI-Not a Secondary Insurance [id number] ANSI-Not a Secondary Insurance [id number] ANSI-Medicaid [id number] ANSI-Medicaid [id number] ANSI-Medicaid [id number] ANSI-Not a Secondary Insurance [id number] ANSI-Medicaid [id number] ANSI-Medicaid [id number] ANSI-Not a Secondary Insurance [id number] ANSI-Medicaid [id number] ANSI-Medicaid [id number] ANSI-Medicaid [id number] ANSI-Medicaid [id number] ANSI-Medicaid [id number] ANSI-Medicaid [id number] ANSI-Not a Secondary Insurance [id number] ANSI-Not a Secondary Insurance [id number] ANSI-Medicaid [id number] ANSI-Medicaid [id number] ANSI-Medicaid [id number] ANSI-Medicaid [id number] ANSI-Not a Secondary Insurance [id number] ANSI-Medicaid [id number] ANSI-Medicaid [id number] ANSI-Not a Secondary Insurance [id number]-[id number] [id number] ANSI-Medicaid [id number] ANSI-Medicaid [id number] ANSI-Medicaid [id number] ANSI-Not a Secondary Insurance [id number] [id number] ANSI-Medicaid [id number] ANSI-Medicaid [id number] MEDICAID [id number] SP [id number] ANSI-Not a Secondary Insurance [id number] [id number] ANSI-Medicaid [id number] ANSI-Not a Secondary Insurance [id number] ANSI-Medicaid [id number] ANSI-Medicaid [id number] ANSI-Not a Secondary Insurance [id number] ANSI-Medicaid [id number] ANSI-Not a Secondary Insurance [id number] ANSI-Not a Secondary Insurance [id number] ANSI-Medicaid [id number] ANSI-Not a Secondary Insurance [id number] [id number] ANSI-Medicaid [id number] [facility] O [id number] S [id number] ANSI-Not a Secondary Insurance [id number] ANSI-Medicaid [id number] ANSI-Not a Secondary Insurance [id number] ANSI-Medicaid [id number] [facility] [id number] SP [id number] ANSI-Not a Secondary Insurance [id number] ANSI-Medicaid [id number] ANSI-Medicaid [id number] ANSI-Not a Secondary Insurance [id number] SELF PAY ONLY [id number] SP [id number] MEDICAID [id number] SP [id number] [facility] Health Maintenance Organization (HMO) [id number] Self [id number] [facility] Health Maintenance Organization (HMO) [id number] Self SELF PAY ONLY UNAVAILABLE SP UNAV AILABLE [employer] COMMUNITY PLAN MCDO [id number] SP [id number] [employer] COMMUNITY PLAN MCDO [id number] SP [id number] [facility] Health Maintenance Organization (HMO) [id number] Self [facility] Hmo Commercial [id number] Self [facility]) O [id number] S [id number] [facility] [id number] SP [id number] Medicaid [place] Medigap Part B [id number] Self HMO BLUE [id number] SP [id number] BLUE [employer] PLAN [id number] SP [id number] BLUE [employer]OSS [employer]AR PLAN [id number] SP [id number] [facility] [id number] SP [id number] [facility] COMMUNITY PLAN [facility] [id number] SP [id number] [facility] [id number] S [id number] [facility] [id number] SP [id number] UN COMMUNITY PLAN XIX [id number] [facility] COMMUNITY PLAN XIX [id number] Problems, Conditions, and Diagnoses Code Display Name Description Problem Type Effective Dates Data Source(s) 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, lumbar region Other intervertebral disc displacement, lumbar region Diagnosis 03/26/2021 09:13:00 AM EDT [facility] M54.31 [id number] Right sided sciatica Problem 02/24/2021 12:0 0:00 AM EDT eCW1 ([facility]) M54.41 [id number] Acute right-sided low back pain with right-sided sciatica Problem 02/24/2021 12:00:00 AM EDT eCW1 ([facility]) N93.9 Abnormal uterine bleeding Abnormal uterine bleeding (A UB) Problem 02/17/2021 12:00:00 AM EDT eCW1 ([facility]) G47.00 [id number] Insomnia, unspecified type Problem 12:00:00 AM EST eCW1 ([facility]) Surgeries/Procedures Procedure Description Date Indications Data Source(s) Laminectomy One Interspace, Lumbar 05/07/2021 12:00:00 AM EDT [facility] ([facility] ) Laminectomy One Interspace, Lumbar 05/07/2021 12:00:00 AM EDT [facility] ([facility] ) Physical Therapy Eval - Mod Complexity 03/31/2021 12:0 0:00 AM EDT [facility] ([facility] ) OFFICE OUTPATIENT VISIT 25 MINUTES 03/31/2021 12:00:00 AM EDT [facility] [facility] X[facility] Spine Lumbosacral Complete Inc Bending Views Min Of 6 03/10/2021 12:00:00 AM EDT [facility] ([facility]) OFFICE OUTPATIENT VISIT 25 MINUTES 03/10/2021 12:00:00 AM EDT [facility] ([facility]) Medication: Toradol 60mg/2mL IM (Ketorolac) 02/24/2021 12:00:00 AM EDT eCW1 ([facility]) Results ID Date Data Source [id number] 05/08/2021 12:20:28 PM EDT [facility] Name Value Range Interpretation Code Description Data Debbie rce(s) Supporting Document(s) POC GLUCOSE 180 mg/dL (70-99) H [facility] NOTIFIED NURSEPERFORMED BY CLINICAL S TAFF ID Date Data Source [id number] 05/08/2021 08:17:40 AM EDT [facility] Name Value Range Interpretation Code Description Data Debbie rce(s) Supporting Document(s) POC GLUCOSE 190 mg/dL (70-99) H [facility] PERFORMED BY CLINICAL STAFF ID Date Data Source [id number] 05/08/2021 07:55:28 AM EDT [facility] Name Value Range Interpretation Code Description Data Debbie rce(s) Supporting Document(s) WBC 11.9 10*3/uL (4.1-11.0) H [facility] RBC 3.84 10*6/uL (4.00-5.40) L [facility] HGB 11.5 g/dL (12.0-16.0) L [facility] HCT 35.8 % (36.0-47.0) L [facility] PERFORMED AT [address] [place] [address] MCV 93.2 fL (80.0-95.0) [facility] MCH 30.1 pg (27.0-32.0) [facility] MCHC 32.3 g/dL (32.0-36.0) [facility] RDW 15.9 % (10.5-14.5) H [facility] PLT 263 10*3/uL (150-450) [facility] MPV 9.6 fL (7.1-10.7) [facility] ID Date Data Source [id number] 05/08/2021 02:44:28 AM EDT [facility] Name Value Range Interpretation Code Description Data Debbie rce(s) Supporting Document(s) POC GLUCOSE 297 mg/dL (70-99) H [facility] PERFORMED BY CLINICAL STAFF ID Date Data Source [id number] 05/07/2021 08:35:11 PM EDT [facility] Name Value Range Interpretation Code Description Data Debbie rce(s) Supporting Document(s) POC GLUCOSE 139 mg/dL (70-99) H [facility] PERFORMED BY CLINICAL STAFF ID Date Data Source [id number] 05/14/2021 10:43:00 AM EDT [facility] [place], [place] [address]PATIENT NAME: BETTY DEL RIODATE OF : 1970REPORT: OPERATIONPATIENT NUMBER: [id number] STATUS: SDMEDICAL RECORD NUMBER: [id number] OF ADMISSION: 1DATE OF DISCHARGE:ROOM: 00DATE OF PROCEDURE: 05/07/2021REOPERATIVE DIAGNOSIS: 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 Unfortunately, she had a recurrence ofintractable discomfort down the left lower extremity and MRI evidence of alarge disk that had inferiorly migrated under the lamina of L5 impinging onthe traversing fifth nerve root. Consent reviewed in detail with thepatient including antonio discussion of pathology involved, the procedureproposed, alternatives including doing nothing and risks including notlimited to pain, failure, infection, bleeding, blood loss, incompleterelief of symptoms, need for additional surgery, CSF leak, and otherissues. The patient agrees to proceed.OPERATIVE COURSE: We identified in the holding area. Site and sideverified, brought to the operating room. Anesthesia was administered,positioned on the Сергей frame for exposure of the lumbar spine, kneesslightly flexed. Once I and the radio engineering teacher were comfortable with thepatient's positioning, she was then sterilely prepped and draped in theusual fashion. Next, her previous incision was outlined with a markingpen, infiltrated with 0.25 percent Marcaine with epinephrine. We extendedthe incision inferiorly to allow for exposure. The incision was made witha 10-blade knife, developed down through the skin and subcuticular tissuesto the posterior lumbar fascia. I utilized 3.5 loupe magnification forthis portion of the procedure. Next, the posterior lumbar fascia exposed,L5 spinous process palpated. The 10-blade was utilized to open theposterior lumbar fascia extending from L4 through L5 and S1. Dissectioncontinued down the L5 lamina. Divot was drilled in the L5 lamina and Sammy-Kenneth was placed in the divot. We obtained a cross-table lateralto verify our location. We developed the dissection superiorly exposingthe L4 in the previous laminotomy out over the L4- L5 facet complex to allowfor significant decompression. Next, at this stage we placed a retractor. We stepped back from the field. My head lamp and loupes were removed. Theoperating microscope had been sterilely draped and was brought in. looked through oculars on the right, I through oculars on theleft. I utilized the high-speed bur to implement a left unilaterallaminectomy of L4 extending from her previous laminotomy superiorly throughthe bare area for medially through approximately 25 percent of the inferiorfacet L4 on the left side continuing inferiorly into the L5 laminacontinuing inferiorly through the bare area of L5, undercutting the spinousprocess of L5 until there was just a shell of L5 lamina left which wasremoved using curved Tracy curettes. Dissection continued laterally andthe medial 25 percent of the superior facet of L5 was then debrided. Next,then I was able to utilize a Calles-Kenneth to identify the traversing root,I attempted to medialize the root, however, that was adhered in place. Next, I identified the axilla of the root. There did seem to be scarredtissue but also disk material probably in the axilla, I dissected using aWatson-Kenneth blunt and carefully and then was able to obtain access orexpose the disk in the axilla. Next, we utilized Quan pituitaries toremove that disk in piecemeal fashion alternating with a Calles-Kenneth tofree up more of the extruded disk. Approximately 5 mm of disk material wasremoved. I explored with the Calles- Kenneth and the Kulwinder, no additionalextruded disk material was appreciated. I did enter the interspace with aDecker pituitary at L4-L5, no additional friable disc material wasremovable. Next, we irrigated, we inspected, no active CSF leak orbleeding was appreciated. Next, after irrigation, posterior lumbar fasciawas reapproximated with interrupted stitch, deep dermis was approximatedwith interrupted stitch. Prineo dressing was applied. The patient wasthen extubated, moved to the hospital bed, moved to recovery room in goodcondition. For further details, please refer the medical record. 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 assisting with the Seymour retractor and othernerve root retractors during this meticulous dissection of the scarredinfield.DICTATED BY: Amanuel Rendon, MDDictated: 05/07/2021 19:48DT: 05/07/2021 19:53Job #: [id number]: [facility] [employer] genera david reports are not confirmed orauthenticated unless they are signed by the providerElectronically Authenticated by:AMANUEL RENDON MD On 05/14/2021 10:43 AM EDT Name Value Range Interpretation Code Description Data Debbie rce(s) Supporting Document(s) ID Date Data Source [id number] 05/07/2021 11:23:34 AM EDT [facility] Name Value Range Interpretation Code Description Data Debbie rce(s) Supporting Document(s) HEMOGLOBIN A1C @ 7.1 % (4.0-6.0) H [facility] Performed using [employer] [place] immunoassa y.Care must be taken when interpreting [id number] in patients with a hemoglobin variantor decreased erythrocyte lifespan. Values 5.7 - 6.4% suggest prediabetes.Values >=6.5% are diagnostic for diabetes.REFERENCE: DIABETES CARE 2018: 41(S13-S27).PERFORMED AT [address] [place] [address] EST AVERAGE GLUCOSE 157 mg/dL [facility] ID Date Data Source [id number] 04/30/2021 08:21:00 AM EDT [facility] ([facility]) Name Value Range Interpretation Code Description Data Debbie rce(s) Supporting Document(s) Laboratory test finding (navigational concept) Laboratory test result [facility] ([facility]) ID Date Data Source CBC with Auto Differential 04/20/2021 12:00:00 AM EDT eCW1 ( [facility]) Name Value Range Interpretation Code Description Data Debbie rce(s) Supporting Document(s) 9.1 4.0-10.0 WHITE BLOOD COUNT eCW1 ([facility]) 4.14 4.00-5.40 RED BLOOD COUNT eCW1 ([facility]) 12.3 12.0-15.5 HEMOGLOBIN eCW1 ([facility]) 37.8 36.0-47.0 HEMATOCRIT eCW1 ([facility]) 32.5 32.0-36.5 MEAN CORPUSCULAR HGB CONC eCW1 ([facility]) 91.3 80.0-96.0 MEAN CORPUSCULAR VOLUME e CW1 ([facility]) 29.7 27.0-33.0 MEAN CORPUSCULAR HEMOGLOB IN eCW1 ([facility]) 331 150-450 PLATELET COUNT, AUTOMATED eCW1 ([facility]) 15.4 11.5-14.5 RED CELL DISTRIBUTION WID TH eCW1 ([facility]) 61.7 36.0-66.0 NEUTROPHILS % eCW1 ([facility]) 27.6 24.0-44.0 LYMPH % eCW1 ([facility]) 0.6 0.0-1.0 BASO % eCW1 ([facility]) 7.4 2.0-8.0 MONO % eCW1 ([facility]) 2.4 0.0-3.0 EOS % eCW1 ([facility]) 0.0 0-0 NUCLEATED RED BLOOD CELL % eCW 1 ([facility]) 5.6 1.5-8.5 NEUTROPHILS # eCW1 ([facility]) 0.3 0-3.0 IMMATURE GRANULOCYTE % eCW1 ([facility]) 2.5 1.5-5.0 LYMPH # eCW1 ([facility]) 0.2 0.0-0.5 EOS # eCW1 ([facility]) 0.7 0.0-0.8 MONO # eCW1 ([facility]) 0.1 0.0-0.2 BASO # eCW1 ([facility]) ID Date Data Source LIPASE 04/20/2021 12:00:00 AM EDT eCW1 ([facility]) Name Value Range Interpretation Code Description Data Debbie rce(s) Supporting Document(s) [id number] LIPASE eCW1 ([facility]) ID Date Data Source Comprehensive Metabolic Profile (CMP) 04/20/2021 12:00:00 AM EDT eCW1 ([facility]) Name Value Range Interpretation Code Description Data Debbie rce(s) Supporting Document(s) 86 70-100 GLUCOSE, FASTING eCW1 ([facility]) 0.81 0.55-1.30 CREATININE FOR GFR eCW1 ([facility]) 12 7-18 BLOOD UREA NITROGEN eCW1 ([facility]) > 60.0 >58 GLOMERULAR FILTRATION RATE eCW 1 ([facility]) 141 136-145 SODIUM LEVEL eCW1 ([facility]) 4.5 3.5-5.1 POTASSIUM SERUM eCW1 ([facility]) 9.0 8.5-10.1 CALCIUM LEVEL eCW1 ([facility]) 26 21-32 CARBON DIOXIDE LEVEL eCW1 ([facility]) 107 98-107 CHLORIDE LEVEL eCW1 ([facility]) 60 45-117 ALKALINE PHOSPHATASE eCW1 ([facility]) 0.4 0.2-1.0 BILIRUBIN,TOTAL eCW1 ([facility]) 24 7-37 AST/SGOT eCW1 ([facility]) 28 12-78 ALT/SGPT eCW1 ([facility]) 0.9 1.2-2.2 ALBUMIN/GLOBULIN RATIO eCW1 ([facility]) 7.4 6.4-8.2 TOTAL PROTEIN eCW1 ([facility]) 3.6 3.2-5.2 ALBUMIN eCW1 ([facility]) ID Date Data Source [id number] 03/30/2021 11:01:00 [place] [address] PHONE: [phone] FAX: [phone] Name .................. : QUANG VILLAFANAKORINA Monge Acct Number.................. : [id number] ROOM. ................. : Number ................... : [id number] Stay type ............. : O/P Discharge Date......... ... : 03/26/21 Admit Date ......... : 03/26/21 Admit Phys .................... : BEKAH Date of ....... : 1970 Family Phys ................... : GREGORY BURCH Phone .................. : [phone] Age ................................ : 50 Film# .................. .:[id number] Sex ................................. : F Unsigned transcriptions are preliminary reports and do not represent a medical or legal document MRI LUMBAR SPINE W&W/O CONTRA [id number] COMPLETE:03/26/21 09:46 TITUS [id number] Reason for Exam: INTERVERTEBRAL DISC DISPLACEMENT MRI OF THE LUMBAR SPINE WITHOUT AND WITH CONTRAST, 03/26/21: FINDINGS: Imaging performed prior to and following intravenous contrast administration. There is no fracture, destructive osseous lesion, dislocation, or pars defect. Disc protrusion and large inferior disc extrusion noted at L4-L5 that has overall maximal sagittal height of 1.8 cm, transverse diameter of 1.1 cm, and maximal AP diameter of 0.8 cm. Disc protrusion and disc extrusion resulted in mild central canal stenosis, severe left lateral recess narrowing, and moderate left neuroforaminal narrowing. There is also mild right lateral recess narrowing at L4- L5. L5-S1, L3-L4, L2-L3, L1-L2, and T12-L1 intervertebral disc spaces are unremarkable. Distal spinal cord pathology is not seen. IMPRESSION: Prominent disc protrusion and inferior disc extrusion seen at L4-L5 that is almost entirely left of the midline with severe left lateral recess narrowing, mild central canal stenosis, and mild right lateral recess narrowing. Normal enhancement seen on post-gadolinium imaging. Distal spinal cord pathology not identified. Electronically Reviewed and Signed By Dhruv Torres MD , 03/30/21 11:01, KGG Page 1 of 2 [facility] [address] [place] [address] PH ONE: [phone] FAX: [phone] Name .................. : QUANG Monge Acct Number.................. : [id number] ROOM. ................. : MR Number ................... : [id number] Stay type ............. : O/P Discharge Date......... ... : 03/26/21 Admit Date ......... : 03/26/21 Admit Phys .................... : BEKAH Date of ....... : 1970 Family Phys ................... : GREGORY [employer] Phone .................. : [phone] Age ................................ : 50 Film# .................. .:[id number] Sex ................................. : F Unsigned transcriptions are preliminary reports and do not represent a medical or legal document MRI LUMBAR SPINE W&W/O CONTRA [id number] COMPLETE:03/26/21 09:46 TITUS [id number] Reason for Exam: INTERVERTEBRAL DISC DISPLACEMENT Transcribe Initials: SSR, Transcribe Date: 03/26/21 13:18, Dictation Date: Copy for: BEKAH Garrison via fax Copy for: 710 MED REC Page 2 of 2 Name Value Range Interpretation Code Description Data Debbie rce(s) Supporting Document(s) ID Date Data Source PAP REQUEST FOR SERVICE 02/17/2021 12:00:00 AM EDT [facility] ([facility]) Name Value Range Interpretation Code Description Data Debbie rce(s) Supporting Document(s) PAP REQUEST FOR SERVICE [facility] ( [facility]) ID Date Data Source [id number] 10/26/2020 04:57:00 PM EST [facility] Name Value Range Interpretation Code Description Data Debbie rce(s) Supporting Document(s) SARS coronavirus 2 RNA Not Detected [facility] [place] This lab was ordered by [facility] and reported by [facility]. ID Date Data Source [id number] 10/26/2020 04:26:00 PM EST [facility] Name Value Range Interpretation Code Description Data Debbie rce(s) Supporting Document(s) SARS COVID ANTIGEN NEGATIVE [facility] This lab was ordered by [facility]elaya nd reported by [facility]. ID Date Data Source Coronavirus 2019 NOSE (Send Out) COVID 10/26/2020 12:00:00 A M EST eCW1 ([facility]) Name Value Range Interpretation Code Description Data Debbie rce(s) Supporting Document(s) This nucleic acid amplification test was developed and its CORONAVIRUS 2019 NOSE eCW1 ([facility]) ID Date Data Source TOTAL IRON BINDING CAPACIT 08/27/2020 12:00:00 AM EST eCW1 ( [facility]) Name Value Range Interpretation Code Description Data Debbie rce(s) Supporting Document(s) 33 50-170 IRON (FE) eCW1 ([facility]) 431 250-450 TOTAL IRON BINDING CAPACI TY eCW1 ([facility]) 7.7 13.2-45.0 PERCENT SATURATION eCW1 ([facility]) ID Date Data Source [id number] 08/27/2020 12:00:00 AM EST eCW1 ([facility]) Name Value Range Interpretation Code Description Data Debbie rce(s) Supporting Document(s) Hemoglobin A1c/Hemoglobin.total in Blood 6.9 HEMOGLOBIN A1c eCW1 ([facility]) ID Date Data Source FERRITIN 08/27/2020 12:00:00 AM EST eCW1 ([facility]) Name Value Range Interpretation Code Description Data Debbie rce(s) Supporting Document(s) 11 8-252 FERRITIN eCW1 ([facility]) ID Date Data Source CBC - Complete Blood Count 08/27/2020 12:00:00 AM EST eCW1 ( [facility]) Name Value Range Interpretation Code Description Data Debbie rce(s) Supporting Document(s) 34.7 36.0-47.0 HEMATOCRIT eCW1 ([facility]) 7.9 4.0-10.0 WHITE BLOOD COUNT eCW1 ([facility]) 10.7 12.0-15.5 HEMOGLOBIN eCW1 ([facility]) 3.94 4.00-5.40 RED BLOOD COUNT eCW1 ([facility]) 30.8 32.0-36.5 MEAN CORPUSCULAR HGB CONC eCW1 ([facility]) 27.2 27.0-33.0 MEAN CORPUSCULAR HEMOGLOB IN eCW1 ([facility]) 88.1 80.0-96.0 MEAN CORPUSCULAR VOLUME e CW1 ([facility]) 333 150-450 PLATELET COUNT, AUTOMATED eCW1 ([facility]) 16.4 11.5-14.5 RED CELL DISTRIBUTION WID TH eCW1 ([facility]) Procedure Social History Code Duration Value Status Description Data Source(s ) Smoking 05/03/2021 12:00:00 AM EDT Never Smoker completed Never S moker eCW1 ([facility]) Smoking 05/03/2021 12:00:00 AM EDT Never Smoker completed Never S moker eCW1 ([facility]) Smoking 05/03/2021 12:00:00 AM EDT Never Smoker completed Never S moker eCW1 ([facility]) Smoking 05/03/2021 12:00:00 AM EDT Never Smoker completed Never S moker eCW1 ([facility]) Smoking 05/03/2021 12:00:00 AM EDT Never Smoker completed Never S moker eCW1 ([facility]) Smoking 05/03/2021 12:00:00 AM EDT Never Smoker completed Never S moker eCW1 ([facility]) Smoking 04/19/2021 12:00:00 AM EDT Never Smoker completed Never S moker eCW1 ([facility]) Smoking 04/19/2021 12:00:00 AM EDT Never Smoker completed Never S moker eCW1 ([facility]) Smoking 04/19/2021 12:00:00 AM EDT Never Smoker completed Never S moker eCW1 ([facility]) Smoking 03/17/2021 12:00:00 AM EDT Never Smoker completed Never S moker eCW1 ([facility]) Smoking 03/17/2021 12:00:00 AM EDT Never Smoker completed Never S moker eCW1 ([facility]) Smoking 02/24/2021 12:00:00 AM EDT Never Smoker completed Never S moker eCW1 ([facility]) Smoking 02/24/2021 12:00:00 AM EDT Never Smoker completed Never S moker eCW1 ([facility]) Smoking 02/24/2021 12:00:00 AM EDT Never Smoker completed Never S moker eCW1 ([facility]) Smoking 02/24/2021 12:00:00 AM EDT Never Smoker completed Never S moker eCW1 ([facility]) Smoking 02/24/2021 12:00:00 AM EDT Never Smoker completed Never S moker eCW1 ([facility]) Smoking 02/02/2021 12:00:00 AM EDT Never Smoker completed Never S moker eCW1 ([facility]) Smoking 10/26/2020 12:00:00 AM EST Never Smoker completed Never S moker eCW1 ([facility]) Smoking 10/26/2020 12:00:00 AM EST Never Smoker completed Never S moker eCW1 ([facility]) Smoking 10/26/2020 12:00:00 AM EST Never Smoker completed Never S moker eCW1 ([facility]) Smoking 08/27/2020 12:00:00 AM EST Never Smoker completed Never S moker eCW1 ([facility]) Smoking 08/27/2020 12:00:00 AM EST Never Smoker completed Never S moker eCW1 ([facility]) Smoking 08/27/2020 12:00:00 AM EST Never Smoker completed Never S moker eCW1 ([facility]) Smoking 08/27/2020 12:00:00 AM EST Never Smoker completed Never S moker eCW1 ([facility]) Smoking 08/27/2020 12:00:00 AM EST Never Smoker completed Never S moker eCW1 ([facility]) Vital Signs ID Date Data Source UNK Name Value Range Interpretation Code Description Data Source(s) Body temperature 97.7 [degF] 97.7 [degF] MEDENT ([facility]) Body weight 219 [lb_av] 219 [lb_av] eCW1 ([facility]) Body height 63 [in_i] 63 [in_i] eCW1 ([facility]) Body mass index (BMI) [Ratio] 38.79 kg/m2 38.79 kg/m2 eCW1 ([facility]) Heart rate 114 /min 114 /min eCW1 ([facility]) Respiratory rate 20 /min 20 /min eCW1 ([facility]) Body temperature 97.5 [degF] 97.5 [degF] eCW1 ( [facility]) Systolic blood pressure 130 mm[Hg] 130 mm[Hg] e CW1 ([facility]) Diastolic blood pressure 82 mm[Hg] 82 mm[Hg] eCW1 ([facility]) Body weight 224 [lb_av] 224 [lb_av] eCW1 ([facility]) Body height 63 [in_i] 63 [in_i] eCW1 ([facility]) Body mass index (BMI) [Ratio] 39.68 kg/m2 39.68 kg/m2 eCW1 ([facility]) Heart rate 109 /min 109 /min eCW1 ([facility]) Respiratory rate 20 /min 20 /min eCW1 ([facility]) Body temperature 98.4 [degF] 98.4 [degF] eCW1 ( [facility]) Systolic blood pressure 122 mm[Hg] 122 mm[Hg] e CW1 ([facility]) Diastolic blood pressure 76 mm[Hg] 76 mm[Hg] eCW1 ([facility]) Body height 63.5 [in_i] 63.5 [in_i] MEDENT ([facility]) 5'3.50" Body weight 227.00 [lb_av] 227.00 [lb_av] MEDEN T ([facility]) Body mass index (BMI) [Ratio] 39.6 kg/m2 39.6 k g/m2 MEDENT ([facility]) Body temperature 97.7 [degF] 97.7 [degF] MEDENT ([facility]) Body weight 228.2 [lb_av] 228.2 [lb_av] eCW1 ([facility]) Body height 63 [in_i] 63 [in_i] eCW1 ([facility]) Body mass index (BMI) [Ratio] 40.42 kg/m2 40.42 kg/m2 eCW1 ([facility]) Systolic blood pressure 12 mm[Hg] 12 mm[Hg] e CW1 ([facility]) Diastolic blood pressure 74 mm[Hg] 74 mm[Hg] eCW1 ([facility]) Body weight 229 [lb_av] 229 [lb_av] eCW1 ([facility]) Body height 63 [in_i] 63 [in_i] eCW1 ([facility]) Body mass index (BMI) [Ratio] 40.56 kg/m2 40.56 kg/m2 eCW1 ([facility]) Heart rate 76 /min 76 /min eCW1 ([facility]) Respiratory rate 20 /min 20 /min eCW1 ([facility]) Body temperature 98.8 [degF] 98.8 [degF] eCW1 ( [facility]) Systolic blood pressure 130 mm[Hg] 130 mm[Hg] e CW1 ([facility]) Diastolic blood pressure 70 mm[Hg] 70 mm[Hg] eCW1 ([facility]) Body weight 228.0 [lb_av] 228.0 [lb_av] eCW1 ([facility]) Body height 63 [in_i] 63 [in_i] eCW1 ([facility]) Body mass index (BMI) [Ratio] 40.38 kg/m2 40.38 kg/m2 eCW1 ([facility]) Systolic blood pressure 132 mm[Hg] 132 mm[Hg] e CW1 ([facility]) Diastolic blood pressure 88 mm[Hg] 88 mm[Hg] eCW1 ([facility]) Diastolic blood pressure 80 mm[Hg] 80 mm[Hg] eCW1 ([facility]) Body weight 229 [lb_av] 229 [lb_av] eCW1 ([facility]) Body height 63 [in_i] 63 [in_i] eCW1 ([facility]) Body mass index (BMI) [Ratio] 40.56 kg/m2 40.56 kg/m2 eCW1 ([facility]) Heart rate 104 /min 104 /min eCW1 ([facility]) Respiratory rate 18 /min 18 /min eCW1 ([facility]) Body temperature 97.7 [degF] 97.7 [degF] eCW1 ( [facility]) Systolic blood pressure 130 mm[Hg] 130 mm[Hg] e CW1 ([facility]) Systolic blood pressure 148 mm[Hg] 148 mm[Hg] M EDENT ([facility], ) Diastolic blood pressure 88 mm[Hg] 88 mm[Hg] MEDENT ([facility], ) Heart rate 105 /min 105 /min MEDENT ([facility], ) Body height 63 [in_i] 63 [in_i] MEDENT ([facility], ) 5'3" Body weight 224.12 [lb_av] 224.12 [lb_av] MEDEN T ([facility], ) Body mass index (BMI) [Ratio] 39.7 kg/m2 39.7 k g/m2 [facility] ([facility], ) [place] body weight 115 [lb_av] 115 [lb_av] MEDEN T ([facility], ) Body weight 101.663 kg 101.663 kg [facility]) Body surface area Derived from formula 2.03 m2 2.03 m2 [facility] ([facility]) Systolic blood pressure 139 mm[Hg] 139 mm[Hg] M EDENT ([facility]) Diastolic blood pressure 93 mm[Hg] 93 mm[Hg] [facility] Heart rate 87 /min 87 /min [facility] Body height 63 [in_i] 63 [in_i] [facility] ([facility]) 5'3" Body weight 220.38 [lb_av] 220.38 [lb_av] MEDEN T ([facility]) Body mass index (BMI) [Ratio] 39.0 kg/m2 39.0 k g/m2 [facility] ([facility]) [place] body weight 115 [lb_av] 115 [lb_av] MEDEN T ([facility]) Body weight 99.962 kg 99.962 kg [facility] ([facility]) Body surface area Derived from formula 2.02 m2 2.02 m2 [facility] ([facility]) Diastolic blood pressure 80 mm[Hg] 80 mm[Hg] eCW1 ([facility]) Body mass index (BMI) [Ratio] 38.79 kg/m2 38.79 kg/m2 W1 ([facility]) Heart rate 104 /min 104 /min eCW1 ([facility]) Respiratory rate 18 /min 18 /min eCW1 ([facility]) Body height 63 [in_i] 63 [in_i] eCW1 ([facility]) Body weight 219 [lb_av] 219 [lb_av] eCW1 ([facility]) Body temperature 98.3 [degF] 98.3 [degF] eCW1 ( [facility]) Systolic blood pressure 108 mm[Hg] 108 mm[Hg] e CW1 ([facility]) Body weight 220 [lb_av] 220 [lb_av] eCW1 ([facility]) Body height 63 [in_i] 63 [in_i] eCW1 ([facility]) Body mass index (BMI) [Ratio] 38.97 kg/m2 38.97 kg/m2 eCW1 ([facility]) Heart rate 97 /min 97 /min eCW1 ([facility]) Respiratory rate 20 /min 20 /min eCW1 ([facility]) Body temperature 97.9 [degF] 97.9 [degF] eCW1 ( [facility]) Systolic blood pressure 138 mm[Hg] 138 mm[Hg] e CW1 ([facility]) Diastolic blood pressure 80 mm[Hg] 80 mm[Hg] eCW1 ([facility]) Patient Treatment Plan of Care Planned Activity Planned Date Details Description Data Source (s) Zofran ODT 4 MG 04/19/2021 12:00:00 AM EDT eCW1 ([facility]) Omeprazole 10 MG Delayed Release Oral Capsule 04/19/2021 12:00:00 A M EDT eCW1 ([facility]) Zofran ODT 4 MG 04/19/2021 12:00:00 AM EDT eCW1 ([facility]) Omeprazole 10 MG Delayed Release Oral Capsule 04/19/2021 12:00:00 A M EDT eCW1 ([facility]) Zofran ODT 4 MG 04/19/2021 12:00:00 AM EDT eCW1 ([facility]) Omeprazole 10 MG Delayed Release Oral Capsule 04/19/2021 12:00:00 A M EDT eCW1 ([facility]) Zofran ODT 4 MG 04/19/2021 12:00:00 AM EDT eCW1 ([facility]) Omeprazole 10 MG Delayed Release Oral Capsule 04/19/2021 12:00:00 A M EDT eCW1 ([facility]) Zofran ODT 4 MG 04/19/2021 12:00:00 AM EDT eCW1 ([facility]) Omeprazole 10 MG Delayed Release Oral Capsule 04/19/2021 12:00:00 A M EDT eCW1 ([facility]) Zofran ODT 4 MG 04/19/2021 12:00:00 AM EDT eCW1 ([facility]) Omeprazole 10 MG Delayed Release Oral Capsule 04/19/2021 12:00:00 A M EDT eCW1 ([facility]) Zofran ODT 4 MG 04/19/2021 12:00:00 AM EDT eCW1 ([facility]) Omeprazole 10 MG Delayed Release Oral Capsule 04/19/2021 12:00:00 A M EDT eCW1 ([facility]) Zofran ODT 4 MG 04/19/2021 12:00:00 AM EDT eCW1 ([facility]) Omeprazole 10 MG Delayed Release Oral Capsule 04/19/2021 12:00:00 A M EDT eCW1 ([facility]) Zofran ODT 4 MG 04/19/2021 12:00:00 AM EDT eCW1 ([facility]) Omeprazole 10 MG Delayed Release Oral Capsule 04/19/2021 12:00:00 A M EDT eCW1 ([facility]) Loestrin 1.5/30 (21) 1.5-30 MG-MCG 03/31/2021 12:00:00 AM EDT eCW1 ([facility]) Loestrin 1.5/30 (21) 1.5-30 MG-MCG 03/31/2021 12:00:00 AM EDT eCW1 ([facility]) Seasonique 0.15-0.03 &0.01 MG 03/17/2021 12:00:00 AM EDT eCW1 ([facility]) Seasonique 0.15-0.03 &0.01 MG 03/17/2021 12:00:00 AM EDT eCW1 ([facility]) Naproxen 500 MG Oral Tablet 03/04/2021 12:00:00 AM EDT eCW1 ([facility]) Naproxen 500 MG Oral Tablet 03/04/2021 12:00:00 AM EDT eCW1 ([facility]) Naproxen 500 MG Oral Tablet 03/04/2021 12:00:00 AM EDT eCW1 ([facility]) Naproxen 500 MG Oral Tablet 03/04/2021 12:00:00 AM EDT eCW1 ([facility]) Ketorolac Tromethamine 10 MG Oral Tablet 02/24/2021 12:00:00 AM EDT eCW1 ([facility]) tizanidine 4 MG Oral Tablet 02/24/2021 12:00:00 AM EDT eCW1 ([facility]) Ketorolac Tromethamine 10 MG Oral Tablet 02/24/2021 12:00:00 AM EDT eCW1 ([facility]) tizanidine 4 MG Oral Tablet 02/24/2021 12:00:00 AM EDT eCW1 ([facility]) tizanidine 4 MG Oral Tablet 02/24/2021 12:00:00 AM EDT eCW1 ([facility]) Ketorolac Tromethamine 10 MG Oral Tablet 02/24/2021 12:00:00 AM EDT eCW1 ([facility]) Ketorolac Tromethamine 10 MG Oral Tablet 02/24/2021 12:00:00 AM EDT eCW1 ([facility]) tizanidine 4 MG Oral Tablet 02/24/2021 12:00:00 AM EDT eCW1 ([facility]) Ketorolac Tromethamine 10 MG Oral Tablet 02/24/2021 12:00:00 AM EDT eCW1 ([facility]) tizanidine 4 MG Oral Tablet 02/24/2021 12:00:00 AM EDT eCW1 ([facility]) Naproxen 500 MG Oral Tablet 02/02/2021 12:00:00 AM EDT eCW1 ([facility]) Augmentin 875-125 MG 10/26/2020 12:00:00 AM EST eCW1 ([facility]) Augmentin 875-125 MG 10/26/2020 12:00:00 AM EST eCW1 ([facility]) Augmentin 875-125 MG 10/26/2020 12:00:00 AM EST eCW1 ([facility]) Loratadine 10 MG Oral Tablet [Claritin] 09/08/2020 12:00:00 AM EST eCW1 ([facility]) Loratadine 10 MG Oral Tablet [Claritin] 09/08/2020 12:00:00 AM EST eCW1 ([facility]) Loratadine 10 MG Oral Tablet [Claritin] 09/08/2020 12:00:00 AM EST eCW1 ([facility]) Loratadine 10 MG Oral Tablet [Claritin] 09/08/2020 12:00:00 AM EST eCW1 ([facility]) Loratadine 10 MG Oral Tablet [Claritin] 09/08/2020 12:00:00 AM EST eCW1 ([facility])
[2021-09-05 01:40] LABS: BASO # 0.1 10^3/uL (0.0-0.2); BASO % 0.7 % (0.0-1.0); EOS # 0.4 10^3/uL (0.0-0.5); EOS % 4.4 % (0.0-3.0); HEMATOCRIT 33.6 % (36.0-47.0); HEMOGLOBIN 10.8 g/dl (12.0-15.5); LYMPH # 2.9 10^3/uL (1.5-5.0); LYMPH % 29.2 % (24.0-44.0); MEAN CORPUSCULAR HEMOGLOBIN 27.9 pg (27.0-33.0); MEAN CORPUSCULAR HGB CONC 32.1 g/dl (32.0-36.5); MEAN CORPUSCULAR VOLUME 86.8 fl (80.0-96.0); MONO # 0.8 10^3/uL (0.0-0.8); MONO % 8.1 % (2.0-8.0); NEUTROPHILS # 5.7 10^3/uL (1.5-8.5); NEUTROPHILS % 57.3 % (36.0-66.0); PLATELET COUNT, AUTOMATED 362 10^3/uL (150-450); RED BLOOD COUNT 3.87 10^6/uL (4.00-5.40)
[2021-09-05 02:10] LABS: ALBUMIN 3.8 GM/DL (3.2-5.2); ALT/SGPT 39 U/L (12-78); BILIRUBIN,DIRECT 0.1 MG/DL (0.0-0.2); BILIRUBIN,TOTAL 0.3 MG/DL (0.2-1.0); BLOOD UREA NITROGEN 12 MG/DL (7-18); CARBON DIOXIDE LEVEL 27 MEQ/L (21-32); CHLORIDE LEVEL 104 MEQ/L (98-107); CREATININE FOR GFR 0.72 MG/DL (0.55-1.30); GLOMERULAR FILTRATION RATE > 60.0 (>58); GLUCOSE, FASTING 118 MG/DL (70-100); LIPASE 164 U/L (73-393); SODIUM LEVEL 138 MEQ/L (136-145); TOTAL PROTEIN 7.4 GM/DL (6.4-8.2)
[2021-09-05 02:17] LABS: HCG, SERUM QUALITATIVE NEGATIVE (NEGATIVE)
[2021-09-05] MEDS ORDERED: ONDANSETRON 4MG/2ML VIAL IV ONE (06:10)
[2021-09-05] MEDS ORDERED: MORPHINE 4 MG/ML 1ML VIAL/SYRINGE (J2270) IV PRN (06:10)
[2021-09-05] MEDS ORDERED: NS 1,000 ML IV SCH (06:10)
--- OUTSIDE RECORDS SUMMARY | 2021-09-05 06:37 | CCD ---
Author Author [facility] Organization [facility] Address Unknown Phone Unavailable Support Name Relationship Address Phone DISABLED Next Of Kin Unknown Unavailable MARRAS Next [place] [address] [place] [address] [address] [facility] Next [place] Kin [address] [address] [place] [address] Lesley Foreman Next Of Kin [address] [place] [address] MALLORY [place] [address] WATNCTYSD* Next Of Kin [address] [place] [address] [facility] Next Of Kin [address] [place] [address] [facility] Next Of Kin [address] [place] [address] KINNEYCOFF Next Of Kin [address] [place] [address] [facility] Next Of Kin [address] [place] [address] KINNEYWASH Next Of Kin [address] [place] [address] UE Next Of Kin Unknown Unavailable [facility] [place] [address] Unavailable UNEMPLOYED Next Of Kin [address] [place] [address] RICHIE HOOD Next Of Kin [address] [place] [address] ANA CRISTINA HOOD Next Of Kin [address] [place] [address] CARMEN DEL RIO Next Of Kin [address] [place] [address] [employer] Next Of Kin [address] [place] [address] [employer] Next Of Kin [address] [place] [address] CARMEN DEL RIO ECON [address] [place] [address] Unavailable Care Team Providers Care 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 Name Role Phone MCELHERAN, KANNAN PA Unavailable [...] Unavailable Unavailable MCELHERAN, KANNAN PA Unavailable Unavailable [facility] PA Unavailable Unavailable MCELHERAN, KANNAN PA Unavailable Unavailable MCELAN, KANNAN PA Unavailable Unavailable [facility]N PA Unavailable Unavailable MCELHERAN, KANNAN PA [...] Unavailable Lucio, L Swapna RPA Unavailable Unavailable Lucoi, L Swapna RPA Unavailable Unavailable Lucio, L [...] Swapna RPA Unavailable Unavailable Alberry, D Joan MANAGER PRODUCT Unavailable Unavailable Alberry, D Joan MANAGER PRODUCT Unavailable Unavailable Alberry, D Joan MANAGER PRODUCT Unavailable Unavailable Alberry, D Joan MANAGER PRODUCT Unavailable Unavailable Alberry, D Joan MANAGER PRODUCT Unavailable Unavailable Alberry, D Joan MANAGER PRODUCT Unavailable Unavailable Alberry, D Joan MANAGER PRODUCT Unavailable Unavailable Alberry, D Joan MANAGER PRODUCT Unavailable Unavailable Alberry, D Joan MANAGER PRODUCT Unavailable Unavailable Alberry, D Joan MANAGER PRODUCT Unavailable Unavailable Alberry, D Joan MANAGER PRODUCT Unavailable Unavailable Alberry, D Joan MANAGER PRODUCT Unavailable Unavailable Alberry, D Joan MANAGER PRODUCT Unavailable Unavailable Alberry, D Joan MANAGER PRODUCT Unavailable Unavailable Alberry, D Joan MANAGER PRODUCT Unavailable Unavailable Alberry, D Joan MANAGER PRODUCT Unavailable Unavailable Alberry, D Joan MANAGER PRODUCT Unavailable Unavailable Alberry, D Joan MANAGER PRODUCT Unavailable Unavailable Alberry, D Joan MANAGER PRODUCT Unavailable Unavailable Alberry, D Joan MANAGER PRODUCT Unavailable Unavailable Alberry, D Joan MANAGER PRODUCT Unavailable Unavailable Alberry, D Joan MANAGER PRODUCT Unavailable Unavailable Alberry, D Joan MANAGER PRODUCT Unavailable Unavailable Alberry, D Joan MANAGER PRODUCT Unavailable Unavailable Alberry, D Joan MANAGER PRODUCT Unavailable Unavailable Alberry, D Joan MANAGER PRODUCT Unavailable Unavailable Alberry, D Joan MANAGER PRODUCT Unavailable Unavailable Alberry, D Joan MANAGER PRODUCT Unavailable Unavailable Alberry, D Joan MANAGER PRODUCT Unavailable Unavailable Alberry, D Joan MANAGER PRODUCT Unavailable Unavailable Alberry, D Joan MANAGER PRODUCT Unavailable Unavailable Alberry, D Joan MANAGER PRODUCT Unavailable Unavailable Alberry, D Joan MANAGER PRODUCT Unavailable Unavailable Alberry, D Joan MANAGER PRODUCT Unavailable Unavailable Alberry, D Joan MANAGER PRODUCT Unavailable Unavailable Alberry, D Joan MANAGER PRODUCT Unavailable Unavailable Alberry, D Joan MANAGER PRODUCT Unavailable Unavailable Alberry, D Joan MANAGER PRODUCT Unavailable Unavailable Alberry, D Joan MANAGER PRODUCT Unavailable Unavailable Alberry, D Joan MANAGER PRODUCT Unavailable Unavailable Alberry, D Joan MANAGER PRODUCT Unavailable Unavailable Alberry, D Joan MANAGER PRODUCT Unavailable Unavailable Alberry, D Joan MANAGER PRODUCT Unavailable Unavailable Alberry, D Joan MANAGER PRODUCT Unavailable Unavailable Alberry, D Joan MANAGER PRODUCT Unavailable Unavailable Alberry, D Joan MANAGER PRODUCT Unavailable Unavailable Alberry, D Joan MANAGER PRODUCT Unavailable Unavailable Alberry, D Joan MANAGER PRODUCT Unavailable Unavailable Alberry, D Joan MANAGER PRODUCT Unavailable Unavailable Alberry, D Joan MANAGER PRODUCT Unavailable Unavailable Alberry, D Joan MANAGER PRODUCT Unavailable Unavailable Alberry, D Joan MANAGER PRODUCT Unavailable Unavailable Alberry, D Joan MANAGER PRODUCT Unavailable Unavailable Alberry, D Joan MANAGER PRODUCT Unavailable Unavailable Alberry, D Joan MANAGER PRODUCT Unavailable Unavailable Mariposa Rendon MD Unavailable Unavailable [...] is protected by Article 27-F of the [facility] Public Health law. If you continue you may have access to information: Regarding HIV / AIDS; Provided by facilities licensed or operated by the [facility] Office of Mental Health; or Provided by the [facility] Office for People With Developmental Disabilities. If such information is present, then the following [facility] mandated warning applies: This information has [...] law may result in a fine or fci sentence or both. A general authorization for the release of medical or other information is NOT sufficient authorization for further disc losure. Allergies and Adverse Reactions Type Description Substance Reaction Status Data Source(s ) Drug allergy NORTRIPTYLINE NORTRIPTYLINE [facility] Family History Family Member Name Family Member Gender Family Member Status Date o f Status Description Data Source(s) Unknown Female Problem MEDENT ([facility] Encounters Encounter Providers Location Date Indications Data Source(s ) Unknown [address] [facility] [id number] 09/02/2021 12:00:00 AM EST eCW1 ([facility]) Unknown [address] [facility] [id number] 08/31/2021 12:00:00 AM EST eCW1 ([facility]) Unknown [address] [facility] [address] 08/04/2021 12:00:00 AM EST eCW1 ([facility]) Unknown [address] [facility] [id number] 05/25/2021 12:00:00 AM EDT eCW1 ([facility]) Office Visit Attender: Amanuel Rendon MD Physical Therapy 2020 09:45:00 AM EDT MEDENT ([facility] ) Outpatient Attender: Amanuel Rendon MD 05/07/2021 11:23:34 AM EDT [facility] [place] [facility] ( in Healthcare facility) Attender: Amaunel Rendon MD 05/07/2021 09:59:00 AM EDT - 05/08/2021 03:16:00 PM [facility]: Amanuel Rendon MDAdmitter: Amanuel Rendon MD 05/07/2021 09:59:00 AM EDT - 05/08/2021 03:16:00 PM EDT 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 Outpatient [address] [facility] [place] [address] 05/03/2021 12:00:00 AM EDT eCW1 ([facility]) [place] [address] [facility] [address] 05/03/2021 12:00:00 AM EDT eCW1 ([facility]) [place] [address] [facility] [address] 04/22/2021 12:00:00 AM EDT eCW1 ([facility]) [place]patient [address] [facility] [address] 04/19/2021 12:00:00 AM EDT eCW1 ([facility]) [place] [address] [facility] [address] 04/19/2021 12:00:00 AM EDT eCW1 ([facility]) Outpatient Attender: Amanuel Rendon MD Physical Therapy 03/31/2021 0 1:15:00 PM EDT MEDENT ([facility]) Outpatient Attender: KANNAN GODFREY PAConsultant: Dario Branch MANAGER PRODUCT 03/26/2021 09:13:00 AM EDT - 03/26/2021 10:13:00 AM EDT [facility] Patient discharged. [place] [address] [facility] [address] 03/24/2021 12:00:00 AM EDT eCW1 ([facility]) [place] [address] [facility] [address] 03/17/2021 12:00:00 AM EDT eCW1 ([facility]) Outpatient Attender: KANNAN DIXON Physical Therapy 03/10/2021 04:15:00 PM EDT MEDENT ([facility]) [place] [address] [facility] [address] 03/04/2021 12:00:00 AM EDT eCW1 ([facility]) [place] [address] [facility] [address] 02/26/2021 12:00:00 AM EDT eCW1 ([facility]) [place] [address] [facility] [address] 02/24/2021 12:00:00 AM EDT eCW1 ([facility]) [place] [address] [facility] [address] 02/24/2021 12:00:00 AM EDT eCW1 ([facility]) [place]patient [address] [facility] [address] 02/17/2021 12:00:00 AM EDT eCW1 ([facility]) Outpatient [address] [facility] [address] 02/02/2021 12:00:00 AM EDT eCW1 ([facility]) Unknown [address] [facility] [address] 12/04/2020 12:00:00 AM EST eCW1 ([facility]) Outpatient Attender: Swapna Santiago/Davina/Lonnie/Marylu sharma 11/02/2020 09:45:00 AM EST MEDENT ([facility]) [place]patient [address] [facility] [address] 10/26/2020 12:00:00 AM EST eCW1 ([facility]) Unknown [address] [facility], [place] [address] 10/26/2020 12:00:00 AM EST eCW1 ([facility]) [place] [address] [facility] [address] 09/07/2020 12:00:00 AM EST eCW1 ([facility]) Unknown [address] [facility] [place] [address] 08/28/2020 12:00:00 AM EST eCW1 ([facility]) Unknown [address] [facility] [address] 08/28/2020 12:00:00 AM EST eCW1 ([facility]) Outpatient [address] [facility] [place] [address] 08/27/2020 12:00:00 AM EST eCW1 ([facility]) [place] [address] [facility] [address] 08/27/2020 12:00:00 AM EST eCW1 ([facility]) Immunizations Vaccine Date Status Description Data Source(s) 02/24/2021 02:50:00 PM EDT completed e CW1 ([facility]) 02/24/2021 02:50:00 PM EDT completed e CW1 ([facility]) 02/24/2021 02:50:00 PM EDT completed e CW1 ([facility]) 02/24/2021 02:50:00 PM EDT completed e CW1 ([facility]) 02/24/2021 02:50:00 PM EDT completed e CW1 ([facility]) 02/24/2021 02:50:00 PM EDT completed e CW1 ([facility]) 02/24/2021 02:50:00 PM EDT completed e CW1 ([facility]) 02/24/2021 02:50:00 PM EDT completed e CW1 ([facility]) 02/24/2021 02:50:00 PM EDT completed e CW1 ([facility]) 02/24/2021 02:50:00 PM EDT completed e CW1 ([facility]) 02/24/2021 02:50:00 PM EDT completed e CW1 ([facility]) 02/24/2021 02:50:00 PM EDT completed e CW1 ([facility]) 02/24/2021 02:50:00 PM EDT completed e CW1 ([facility]) COVID-19 VACCINE Moderna 12/03/2020 12:00:00 AM EST completed [facility] Vaccine Series Complete: YESThis Data wa s Submitted to [facility] Via [email or web address]. COVID-19 VACCINE Moderna 11/05/2020 12:00:00 AM EST completed [facility] Vaccine Series Complete: NOThis Data was Submitted to [facility] Via [email or web address]. Medications Medication Brand Name Start Date Product Form Dose Route Admi nistrative Instructions Pharmacy Instructions Status Indications Reaction Description Data Source(s) 75 mcg 09/03/2021 12:00:00 AM EST tablet 90 TAKE ONE TABLET BY MOUTH EVERY MORNING ON AN EMPTY STOMACH TAKE ONE TABLET BY MOUTH EVERY MORNING O N AN EMPTY STOMACH SOLD: 09/03/2021 [facility] 150 mg 09/03/2021 12:00:00 AM EST tablet 90 TAKE ONE TABLET BY MOUTH AT BEDTIME NEEDED TAKE ONE TABLET BY MOUTH AT BEDTIME NEEDED SOLD: [facility] 40 mg 09/03/2021 12:00:00 AM EST tablet 90 TAKE ONE TABLET BY MOUTH EVERY DAY TAKE ONE TABLET BY MOUTH EVERY DAY SOLD: 09/03/2021 [facility] Fluticasone propionate 0.05 MG/ACTUAT Metered Dose [facility] [place] 50 mcg/actuation FLUTICASONE PROPIONATE 09/03/2021 12:00:00 AM EST spray,suspension 16 SPRAY ONE SPRAY IN EACH NOSTRIL EVERY DAY SPRAY ONE SPRAY IN EACH NOSTRIL EVERY DAY SOLD: 09/03/2021 [facility] 10 mg 09/03/2021 12:00:00 AM EST tablet 90 TAKE 1 TABLET BY MOUTH DAILY TAKE 1 TABLET BY MOUTH DAILY SOLD: 09/03/2021 [facility] Citalopram 40 MG Oral Tablet CITALOPRAM HYDROBROMIDE 09/03/2021 12:00:00 AM EST tablet 90 TAKE ONE TABLET BY MOUTH EVERY D AY TAKE ONE TABLET BY MOUTH EVERY DAY SOLD: 09/03/2021 [facility] 500 mg 09/01/2021 12:00:00 AM EST tablet 60 TAKE ONE TABLET BY MOUTH EVERY 12 HOURS WITH FOOD TAKE ONE TABLET BY MOUTH EVERY 12 HOURS WITH FOOD SOLD : 09/01/2021 [facility] 5-325 mg 05/19/2021 12:00:00 AM EDT tablet 14 TAKE ONE TABLET BY MOUTH EVERY 4-6 HOURS NEEDED POST SURGICAL PAIN MAXIMUM DAILY DOSE = FOUR TABLETS TAKE ONE TABLET BY MOUTH EVERY 4-6 HOURS NEEDED POST SURGICAL PAIN MAXIMUM DAILY DOSE = FOUR TABLETS SOLD: 05/21/2021 [facility] 5-325 mg 05/11/2021 12:00:00 AM EDT [...] DAILY DOSE = FOUR TABLETS SOLD: 05/08/2021 [facility] 4 % 04/30/2021 12:00:00 AM EDT [...] 5 DAYS PRIOR TO SURGERY SOLD: 05/01/2021 [facility] Mupirocin 0.02 MG/MG Topical Ointment Mupirocin 04/28/2021 12:00:00 AM EDT active MEDENT ([facility]) chlorhexidine gluconate 40 MG/ML Medicated Liquid Soap [Tadeoi clejusten] Hibiclens 04/28/2021 12:00:00 AM EDT completed MEDENT ([facility]) Acetaminophen 325 MG / Oxycodone Hydrochloride 5 MG Or al Tablet Oxycodone-Acetaminophen 04/28/2021 12:00:00 AM EDT ORAL active MEDENT ([facility]) Omeprazole 10 MG Delayed Release Oral Capsule Omeprazole 10 MG 04/19/2021 12:00:00 AM EDT active Omeprazo le 10 MG eCW1 ([facility]) Zofran ODT 4 MG UNK 04/19/2021 12:00:00 AM EDT 1.0 {tablet_on_the_tongue_and_allow_to_dissolve} active Zofran ODT 4 MG eCW1 ([facility]) Zofran ODT 4 MG UNK 04/19/2021 12:00:00 AM EDT 1.0 {tablet_on_the_tongue_and_allow_to_dissolve} active Zofran ODT 4 MG eCW1 ([facility]) 10 mg 04/19/2021 12:00:00 AM EDT capsule,delayed [...] EDT active Omeprazo le 10 MG eCW1 ([facility]) 10 mg 04/19/2021 12:00:00 AM EDT capsule,delayed release (DR/EC) 30 TAKE ONE CAPSULE BY MOUTH EVERY MORNING 30 MINUTES BEFORE MORNING MEAL TAKE ONE CAPSULE BY MOUTH EVERY MORNING 30 MINUTES BEFORE MORNING MEAL SOLD: 06/02/2021 [facility] Omeprazole 10 MG Delayed Release Oral Capsule Omeprazole 10 MG 04/19/2021 12:00:00 AM EDT active Omeprazo le 10 MG eCW1 ([facility]) Omeprazole 10 MG Delayed Release Oral Capsule Omeprazole 10 MG 04/19/2021 12:00:00 AM EDT active Omeprazo le 10 MG eCW1 ([facility]) Omeprazole 10 MG Delayed Release Oral Capsule Omeprazole 10 MG 04/19/2021 12:00:00 AM EDT active Omeprazo le 10 MG eCW1 ([facility]) Omeprazole 10 MG Delayed Release Oral Capsule Omeprazole 10 MG 04/19/2021 12:00:00 AM EDT active Omeprazo le 10 MG eCW1 ([facility]) Zofran ODT 4 MG UNK 04/19/2021 12:00:00 AM EDT 1.0 {tablet_on_the_tongue_and_allow_to_dissolve} active Zofran ODT 4 MG eCW1 ([facility]) Omeprazole 10 MG Delayed Release Oral Capsule Omeprazole 10 MG 04/19/2021 12:00:00 AM EDT active Omeprazo le 10 MG eCW1 ([facility]) Zofran ODT 4 MG UNK 04/19/2021 12:00:00 AM EDT 1.0 {tablet_on_the_tongue_and_allow_to_dissolve} active Zofran ODT 4 MG eCW1 ([facility]) 10 mg 04/19/2021 12:00:00 AM EDT capsule,delayed release (DR/EC) 30 TAKE ONE CAPSULE BY MOUTH EVERY MORNING 30 MINUTES BEFORE MORNING MEAL TAKE ONE CAPSULE BY MOUTH EVERY MORNING 30 MINUTES BEFORE MORNING MEAL SOLD: 04/19/2021 [facility] Ondansetron 4 MG Disintegrating Oral Tablet ONDANSETRON 04/19/2021 12:00:00 AM EDT tablet,disintegrating 30 DISSOLVE O NE TABLET ON TONGUE EVERY 8 HOURS NEEDED FOR NAUSEA DISSOLVE ONE TABLET ON TONGUE EVERY 8 HO URS NEEDED FOR NAUSEA SOLD: 04/19/2021 [facility] Zofran ODT 4 MG UNK 04/19/2021 12:00:00 AM EDT 1.0 {tablet_on_the_tongue_and_allow_to_dissolve} active Zofran ODT 4 MG eCW1 ([facility]) Omeprazole 10 MG Delayed Release Oral Capsule Omeprazole 10 MG 04/19/2021 12:00:00 AM EDT active Omeprazo le 10 MG eCW1 ([facility]) Zofran ODT 4 MG UNK 04/19/2021 12:00:00 AM EDT 1.0 {tablet_on_the_tongue_and_allow_to_dissolve} active Zofran ODT 4 MG eCW1 ([facility]) Zofran ODT 4 MG UNK 04/19/2021 12:00:00 AM EDT 1.0 {tablet_on_the_tongue_and_allow_to_dissolve} active Zofran ODT 4 MG eCW1 ([facility]) Zofran ODT 4 MG UNK 04/19/2021 12:00:00 AM EDT 1.0 {tablet_on_the_tongue_and_allow_to_dissolve} active Zofran ODT 4 MG eCW1 ([facility]) Omeprazole 10 MG Delayed Release Oral Capsule Omeprazole 10 MG 04/19/2021 12:00:00 AM EDT active Omeprazo le 10 MG eCW1 ([facility]) Zofran ODT 4 MG UNK 04/19/2021 12:00:00 AM EDT 1.0 {tablet_on_the_tongue_and_allow_to_dissolve} active Zofran ODT 4 MG eCW1 ([facility]) 500 mg 04/02/2021 12:00:00 AM EDT tablet 60 TAKE ONE TABLET BY MOUTH TWICE A DAY WITH FOOD TAKE ONE TABLET BY MOUTH TWICE A DAY WITH FOOD SOLD: 021 [facility] ALONDRA 1.5/30 21 Day Pack 1.5-30 mg-mcg NORETHINDRONE AC-ETH ESTRADIOL 04/02/2021 12:00:00 AM EDT tablet 21 TAKE ONE TABLET BY MOUTH EVERY DAY TAKE ONE TABLET BY MOUTH EVERY DAY SOLD: 04/24/2021 [facility] ALONDRA 1.5/30 21 Day [...] 04/02/2021 12:00:00 AM EDT ORAL active MEDENT ([facility]) Loestrin 1.5/30 (21) 1.5-30 MG-MCG Loestrin 1.5/30 (21) 1.5- 30 MG-MCG 03/31/2021 12:00:00 AM EDT 1.0 {tablet} active Loestrin 1.5/30 (21) 1.5-30 MG-MCG eCW1 ([facility]) Loestrin 1.5/30 (21) 1.5-30 MG-MCG Loestrin 1.5/30 (21) 1.5- 30 MG-MCG 03/31/2021 12:00:00 AM EDT 1.0 {tablet} active Loestrin 1.5/30 (21) 1.5-30 MG-MCG eCW1 ([facility]) Loestrin 1.5/30 (21) 1.5-30 MG-MCG Loestrin 1.5/30 (21) 1.5- 30 MG-MCG 03/31/2021 12:00:00 AM EDT 1.0 {tablet} active Loestrin 1.5/30 (21) 1.5-30 MG-MCG eCW1 ([facility]) Loestrin 1.5/30 (21) 1.5-30 MG-MCG Loestrin 1.5/30 (21) 1.5- 30 MG-MCG 03/31/2021 12:00:00 AM EDT 1.0 {tablet} active Loestrin 1.5/30 (21) 1.5-30 MG-MCG eCW1 ([facility]) Loestrin 1.5/30 (21) 1.5-30 MG-MCG Loestrin 1.5/30 (21) 1.5- 30 MG-MCG 03/31/2021 12:00:00 AM EDT 1.0 {tablet} active Loestrin 1.5/30 (21) 1.5-30 MG-MCG eCW1 ([facility]) Loestrin 1.5/30 (21) 1.5-30 MG-MCG Loestrin 1.5/30 (21) 1.5- 30 MG-MCG 03/31/2021 12:00:00 AM EDT 1.0 {tablet} active Loestrin 1.5/30 (21) 1.5-30 MG-MCG eCW1 ([facility]) Loestrin 1.5/30 (21) 1.5-30 MG-MCG Loestrin 1.5/30 (21) 1.5- 30 MG-MCG 03/31/2021 12:00:00 AM EDT 1.0 {tablet} active Loestrin 1.5/30 (21) 1.5-30 MG-MCG eCW1 ([facility]) Loestrin 1.5/30 (21) 1.5-30 MG-MCG Loestrin 1.5/30 (21) 1.5- 30 MG-MCG 03/31/2021 12:00:00 AM EDT 1.0 {tablet} active Loestrin 1.5/30 (21) 1.5-30 MG-MCG eCW1 ([facility]) Loestrin 1.5/30 (21) 1.5-30 MG-MCG Loestrin 1.5/30 (21) 1.5- 30 MG-MCG 03/31/2021 12:00:00 AM EDT 1.0 {tablet} active Loestrin 1.5/30 (21) 1.5-30 MG-MCG eCW1 ([facility]) Loestrin 1.5/30 (21) 1.5-30 MG-MCG Loestrin 1.5/30 (21) 1.5- 30 MG-MCG 03/31/2021 12:00:00 AM EDT 1.0 {tablet} active Loestrin 1.5/30 (21) 1.5-30 MG-MCG eCW1 ([facility]) Loestrin 1.5/30 (21) 1.5-30 MG-MCG Loestrin 1.5/30 (21) 1.5- 30 MG-MCG 03/31/2021 12:00:00 AM EDT 1.0 {tablet} active Loestrin 1.5/30 (21) 1.5-30 MG-MCG eCW1 ([facility]) 4 mg 03/24/2021 12:00:00 AM EDT tablet 90 TAKE ONE TABLET BY MOUTH THREE TIMES A DAY TAKE ONE TABLET BY MOUTH THREE TIMES A DAY SOLD: 03/24/2021 [facility] tizanidine 4 MG Oral Capsule Tizanidine HCL 03/24/2021 12:00:00 AM EDT ORAL completed MEDENT ([facility]) Seasonique 0.15-0.03 &0.01 MG Seasonique 0.15-0.03 &0.01 MG 03/17/2021 12:00:00 AM EDT 1.0 {tablet} active Seasonique 0.15-0.03 &0.01 MG eCW1 ([facility]) Seasonique 0.15-0.03 &0.01 MG Seasonique 0.15-0.03 &0.01 MG 03/17/2021 12:00:00 AM EDT 1.0 {tablet} active Seasonique 0.15-0.03 &0.01 MG eCW1 ([facility]) Seasonique 0.15-0.03 &0.01 MG Seasonique 0.15-0.03 &0.01 MG 03/17/2021 12:00:00 AM EDT 1.0 {tablet} suspended Seasoniq ue 0.15-0.03 &0.01 MG eCW1 ([facility]) Seasonique 0.15-0.03 &0.01 MG Seasonique 0.15-0.03 &0.01 MG 03/17/2021 12:00:00 AM EDT 1.0 {tablet} suspended Seasoniq ue 0.15-0.03 &0.01 MG eCW1 ([facility]) Seasonique 0.15-0.03 &0.01 MG Seasonique 0.15-0.03 &0.01 MG 03/17/2021 12:00:00 AM EDT 1.0 {tablet} suspended Seasoniq ue 0.15-0.03 &0.01 MG eCW1 ([facility]) Seasonique 0.15-0.03 &0.01 MG Seasonique 0.15-0.03 &0.01 MG 03/17/2021 12:00:00 AM EDT 1.0 {tablet} suspended Seasoniq ue 0.15-0.03 &0.01 MG eCW1 ([facility]) Seasonique 0.15-0.03 &0.01 MG Seasonique 0.15-0.03 &0.01 MG 03/17/2021 12:00:00 AM EDT 1.0 {tablet} suspended Seasoniq ue 0.15-0.03 &0.01 MG eCW1 ([facility]) Seasonique 0.15-0.03 &0.01 MG Seasonique 0.15-0.03 &0.01 MG 03/17/2021 12:00:00 AM EDT 1.0 {tablet} suspended Seasoniq ue 0.15-0.03 &0.01 MG eCW1 ([facility]) Seasonique 0.15-0.03 &0.01 MG Seasonique 0.15-0.03 &0.01 MG 03/17/2021 12:00:00 AM EDT 1.0 {tablet} suspended Seasoniq ue 0.15-0.03 &0.01 MG eCW1 ([facility]) Seasonique 0.15-0.03 &0.01 MG Seasonique 0.15-0.03 &0.01 MG 03/17/2021 12:00:00 AM EDT 1.0 {tablet} suspended Seasoniq ue 0.15-0.03 &0.01 MG eCW1 (Formerly [facility], [facility]) Seasonique 0.15-0.03 &0.01 MG Seasonique 0.15-0.03 &0.01 MG 03/17/2021 12:00:00 AM EDT 1.0 {tablet} suspended Seasoniq ue 0.15-0.03 &0.01 MG eCW1 (Formerly [facility], [facility]) 300 mg 03/10/2021 12:00:00 AM EDT capsule [...] [Medrol] Medrol 12:00:00 AM EDT completed [facility] [facility] Naproxen 500 MG Oral Tablet Naproxen 500 MG 03/04/2021 12:00:00 AM EDT active Naproxen 500 MG eCW1 ([facility]) Naproxen 500 MG Oral Tablet Naproxen 500 MG 03/04/2021 12:00:00 AM EDT active Naproxen 500 MG eCW1 ([facility]) Naproxen 500 MG Oral Tablet Naproxen 500 MG 03/04/2021 12:00:00 AM EDT active Naproxen 500 MG eCW1 ([facility]) Naproxen 500 MG Oral Tablet Naproxen 500 MG 03/04/2021 12:00:00 AM EDT active Naproxen 500 MG eCW1 ([facility]) Naproxen 500 MG Oral Tablet Naproxen 500 MG 03/04/2021 12:00:00 AM EDT active Naproxen 500 MG eCW1 ([facility]) Naproxen 500 MG Oral Tablet Naproxen 500 MG 03/04/2021 12:00:00 AM EDT active Naproxen 500 MG eCW1 ([facility]) Naproxen 500 MG Oral Tablet Naproxen 500 MG 03/04/2021 12:00:00 AM EDT active Naproxen 500 MG eCW1 ([facility]) Naproxen 500 MG Oral Tablet Naproxen 500 MG 03/04/2021 12:00:00 AM EDT active Naproxen 500 MG eCW1 ([facility]) Naproxen 500 MG Oral Tablet Naproxen 500 MG 03/04/2021 12:00:00 AM EDT active Naproxen 500 MG eCW1 ([facility]) Naproxen 500 MG Oral Tablet Naproxen 500 MG 03/04/2021 12:00:00 AM EDT active Naproxen 500 MG eCW1 ([facility]) Naproxen 500 MG Oral Tablet Naproxen 500 MG 03/04/2021 12:00:00 AM EDT active Naproxen 500 MG eCW1 ([facility]) Naproxen 500 MG Oral Tablet Naproxen 500 MG 03/04/2021 12:00:00 AM EDT active Naproxen 500 MG eCW1 ([facility]) 500 mg 03/04/2021 12:00:00 AM EDT tablet 60 TAKE ONE TABLET BY MOUTH EVERY 12 HOURS WITH FOOD TAKE ONE TABLET BY MOUTH EVERY 12 HOURS WITH FOOD SOLD : 03/07/2021 [facility] Naproxen 500 MG Oral Tablet Naproxen 500 MG 03/04/2021 12:00:00 AM EDT active Naproxen 500 MG eCW1 ([facility]) Fluticasone propionate 0.05 MG/ACTUAT Metered Dose [facility] [place] 50 mcg/actuation FLUTICASONE PROPIONATE 03/02/2021 12:00:00 AM [...] BEDTIME NEEDED SOLD: [facility] 75 mcg 03/02/2021 12:00:00 AM EDT tablet 90 TAKE ONE TABLET BY MOUTH EVERY MORNING ON AN EMPTY STOMACH TAKE ONE TABLET BY MOUTH EVERY MORNING O N AN EMPTY STOMACH SOLD: 06/02/2021 [facility] 10 mg 03/02/2021 12:00:00 AM EDT tablet 30 TAKE ONE TABLET BY MOUTH EVERY DAY TAKE ONE TABLET BY MOUTH EVERY DAY SOLD: 08/04/2021 [facility] atorvastatin 40 MG Oral Tablet ATORVASTATIN CALCIUM 03/02/2021 1 2:00:00 AM EDT tablet 90 TAKE ONE TABLET BY MOUTH EVERY D AY TAKE ONE TABLET BY MOUTH EVERY DAY SOLD: 03/02/2021 [facility] Citalopram 40 MG Oral [...] active Ketorol ac Tromethamine 10 MG eCW1 ([facility]) tizanidine 4 MG Oral Tablet TIZANIDINE HCL 02/24/2021 12:00:00 AM EDT tablet 15 TAKE ONE TABLET BY MOUTH THREE TIMES A DAY NEEDED T JOYCE ONE TABLET BY MOUTH THREE TIMES A DAY NEEDED SOLD: 02/24/2021 [facility] Ketorolac Tromethamine 10 MG Oral Tablet Ketorolac Trometham ine 10 MG 02/24/2021 12:00:00 AM EDT suspended Keto rolac Tromethamine 10 MG eCW1 ([facility]) Ketorolac Tromethamine 10 MG Oral Tablet Ketorolac Trometham ine 10 MG 02/24/2021 12:00:00 AM EDT suspended Keto rolac Tromethamine 10 MG eCW1 ([facility]) Ketorolac Tromethamine 10 MG Oral Tablet Ketorolac Trometham ine 10 MG 02/24/2021 12:00:00 AM EDT active Ketorol ac Tromethamine 10 MG eCW1 ([facility]) tizanidine 4 MG Oral Tablet tiZANidine HCl 4 MG tiZANidine H Cl 4 MG 02/24/2021 12:00:00 AM EDT 1.0 {tablet_as_needed} active tiZANidine HCl 4 MG eCW1 ([facility]) tizanidine 4 MG Oral Tablet tiZANidine HCl 4 MG tiZANidine H Cl 4 MG 02/24/2021 12:00:00 AM EDT 1.0 {tablet_as_needed} suspended tiZANidine HCl 4 MG eCW1 ([facility]) Ketorolac Tromethamine 10 MG Oral Tablet Ketorolac Trometham ine 10 MG 02/24/2021 12:00:00 AM EDT suspended Keto rolac Tromethamine 10 MG eCW1 ([facility]) Ketorolac Tromethamine 10 MG Oral Tablet Ketorolac Trometham ine 10 MG 02/24/2021 12:00:00 AM EDT active Ketorol ac Tromethamine 10 MG eCW1 ([facility]) Ketorolac Tromethamine 10 MG Oral Tablet Ketorolac Trometham ine 10 MG 02/24/2021 12:00:00 AM EDT active Ketorol ac Tromethamine 10 MG eCW1 ([facility]) tizanidine 4 MG Oral Tablet Tizanidine HCl 4 MG Tizanidine H Cl 4 MG 02/24/2021 12:00:00 AM EDT 1.0 {tablet_as_needed} active Tizanidine HCl 4 MG eCW1 ([facility]) tizanidine 4 MG Oral Tablet tiZANidine HCl 4 MG tiZANidine H Cl 4 MG 02/24/2021 12:00:00 AM EDT 1.0 {tablet_as_needed} suspended tiZANidine HCl 4 MG eCW1 ([facility]) tizanidine 4 MG Oral Tablet tiZANidine HCl 4 MG tiZANidine H Cl 4 MG 02/24/2021 12:00:00 AM EDT 1.0 {tablet_as_needed} active tiZANidine HCl 4 MG eCW1 ([facility]) tizanidine 4 MG Oral Tablet tiZANidine HCl 4 MG tiZANidine H Cl 4 MG 02/24/2021 12:00:00 AM EDT 1.0 {tablet_as_needed} suspended tiZANidine HCl 4 MG eCW1 ([facility]) Ketorolac Tromethamine 10 MG Oral Tablet Ketorolac Trometham ine 10 MG 02/24/2021 12:00:00 AM EDT suspended Keto rolac Tromethamine 10 MG eCW1 ([facility]) tizanidine 4 MG Oral Tablet tiZANidine HCl 4 MG tiZANidine H Cl 4 MG 02/24/2021 12:00:00 AM EDT 1.0 {tablet_as_needed} suspended tiZANidine HCl 4 MG eCW1 ([facility]) tizanidine 4 MG Oral Tablet tiZANidine HCl 4 MG tiZANidine H Cl 4 MG 02/24/2021 12:00:00 AM EDT 1.0 {tablet_as_needed} active tiZANidine HCl 4 MG eCW1 ([facility]) tizanidine 4 MG Oral Tablet tiZANidine HCl 4 MG tiZANidine H Cl 4 MG 02/24/2021 12:00:00 AM EDT 1.0 {tablet_as_needed} suspended tiZANidine HCl 4 MG eCW1 ([facility]) Ketorolac Tromethamine 10 MG Oral Tablet Ketorolac Trometham ine 10 MG 02/24/2021 12:00:00 AM EDT active Ketorol ac Tromethamine 10 MG eCW1 ([facility]) tizanidine 4 MG Oral Tablet tiZANidine HCl 4 MG tiZANidine H Cl 4 MG 02/24/2021 12:00:00 AM EDT 1.0 {tablet_as_needed} suspended tiZANidine HCl 4 MG eCW1 ([facility]) tizanidine 4 MG Oral Tablet tiZANidine HCl 4 MG tiZANidine H Cl 4 MG 02/24/2021 12:00:00 AM EDT 1.0 {tablet_as_needed} suspended tiZANidine HCl 4 MG eCW1 ([facility]) Ketorolac Tromethamine 10 MG Oral Tablet Ketorolac Trometham ine 10 MG 02/24/2021 12:00:00 AM EDT active Ketorol ac Tromethamine 10 MG eCW1 ([facility]) Ketorolac Tromethamine 10 MG Oral Tablet Ketorolac Trometham ine 10 MG 02/24/2021 12:00:00 AM EDT suspended Keto rolac Tromethamine 10 MG eCW1 ([facility]) Ketorolac Tromethamine 10 MG Oral Tablet Ketorolac Trometham ine 10 MG 02/24/2021 12:00:00 AM EDT suspended Keto rolac Tromethamine 10 MG eCW1 ([facility]) Ketorolac Tromethamine 10 MG Oral Tablet Ketorolac Trometham ine 10 MG 02/24/2021 12:00:00 AM EDT active Ketorol ac Tromethamine 10 MG eCW1 ([facility]) tizanidine 4 MG Oral Tablet tiZANidine HCl 4 MG tiZANidine H Cl 4 MG 02/24/2021 12:00:00 AM EDT 1.0 {tablet_as_needed} suspended tiZANidine HCl 4 MG eCW1 ([facility]) Ketorolac Tromethamine 10 MG Oral Tablet Ketorolac Trometham ine 10 MG 02/24/2021 12:00:00 AM EDT suspended Keto rolac Tromethamine 10 MG eCW1 ([facility]) tizanidine 4 MG Oral Tablet tiZANidine HCl 4 MG tiZANidine H Cl 4 MG 02/24/2021 12:00:00 AM EDT 1.0 {tablet_as_needed} suspended tiZANidine HCl 4 MG eCW1 ([facility]) tizanidine 4 MG Oral Tablet tiZANidine HCl 4 MG tiZANidine H Cl 4 MG 02/24/2021 12:00:00 AM EDT 1.0 {tablet_as_needed} suspended tiZANidine HCl 4 MG eCW1 ([facility]) tizanidine 4 MG Oral Tablet Tizanidine HCl 4 MG Tizanidine H Cl 4 MG 02/24/2021 12:00:00 AM EDT 1.0 {tablet_as_needed} active Tizanidine HCl 4 MG eCW1 ([facility]) 10 mg 02/24/2021 12:00:00 AM EDT tablet [...] {tablet_as_needed} suspended tiZANidine HCl 4 MG eCW1 ([facility]) Ketorolac Tromethamine 10 MG Oral Tablet Ketorolac Trometham ine 10 MG 02/24/2021 12:00:00 AM EDT suspended Keto rolac Tromethamine 10 MG eCW1 ([facility]) Ketorolac Tromethamine 10 MG Oral Tablet Ketorolac Trometham ine 10 MG 02/24/2021 12:00:00 AM EDT suspended Keto rolac Tromethamine 10 MG eCW1 ([facility]) Naproxen 500 MG Oral Tablet Naproxen 500 MG 02/02/2021 12:00:00 AM EDT active Naproxen 500 MG eCW1 ([facility]) 500 mg 02/02/2021 12:00:00 AM EDT tablet 20 TAKE ONE TABLET BY MOUTH EVERY 12 HOURS FOR 10 DAYS WITH FOOD OR MILK TAKE ONE TABLET BY MOUTH EVERY 12 HOURS FOR 10 DAYS WITH FOOD OR MILK SOLD: 02/02/2021 [facility] Augmentin 875-125 MG UNK 10/26/2020 12:00:00 AM EST 1.0 {tab let} suspended Augmentin 875-125 MG eCW1 ([facility]) 875-125 mg 10/26/2020 12:00:00 AM EST tablet 20 TAKE ONE TABLET BY MOUTH TWICE A DAY FOR 10 DAYS TAKE ONE TABLET BY MOUTH TWICE A DAY FOR 10 DAYS SOLD: 10/26/2020 [facility] Augmentin 875-125 MG UNK 10/26/2020 12:00:00 AM EST 1.0 {tablet } active Augmentin 875-125 MG eCW1 ([facility]) Augmentin 875-125 MG UNK 10/26/2020 12:00:00 AM EST 1.0 {tablet } active Augmentin 875-125 MG eCW1 ([facility]) Augmentin 875-125 MG UNK 10/26/2020 12:00:00 AM EST 1.0 {tablet } active Augmentin 875-125 MG eCW1 ([facility]) Augmentin 875-125 MG UNK 10/26/2020 12:00:00 AM EST 1.0 {tab let} suspended Augmentin 875-125 MG eCW1 ([facility]) Augmentin 875-125 MG UNK 10/26/2020 12:00:00 AM EST 1.0 {tablet } active Augmentin 875-125 MG eCW1 ([facility]) Augmentin 875-125 MG UNK 10/26/2020 12:00:00 AM EST 1.0 {tab let} suspended Augmentin 875-125 MG eCW1 ([facility]) Augmentin 875-125 MG UNK 10/26/2020 12:00:00 AM EST 1.0 {tab let} suspended Augmentin 875-125 MG eCW1 ([facility]) Augmentin 875-125 MG UNK 10/26/2020 12:00:00 AM EST 1.0 {tab let} suspended Augmentin 875-125 MG eCW1 ([facility]) Augmentin 875-125 MG UNK 10/26/2020 12:00:00 AM EST 1.0 {tab let} suspended Augmentin 875-125 MG eCW1 ([facility]) Augmentin 875-125 MG UNK 10/26/2020 12:00:00 AM EST 1.0 {tab let} suspended Augmentin 875-125 MG eCW1 ([facility]) Augmentin 875-125 MG UNK 10/26/2020 12:00:00 AM EST 1.0 {tab let} suspended Augmentin 875-125 MG eCW1 ([facility]) Augmentin 875-125 MG UNK 10/26/2020 12:00:00 AM EST 1.0 {tab let} suspended Augmentin 875-125 MG eCW1 ([facility]) Augmentin 875-125 MG UNK 10/26/2020 12:00:00 AM EST 1.0 {tab let} suspended Augmentin 875-125 MG eCW1 ([facility]) Augmentin 875-125 MG UNK 10/26/2020 12:00:00 AM EST 1.0 {tablet } active Augmentin 875-125 MG eCW1 ([facility]) Augmentin 875-125 MG UNK 10/26/2020 12:00:00 AM EST 1.0 {tab let} suspended Augmentin 875-125 MG eCW1 ([facility]) Augmentin 875-125 MG UNK 10/26/2020 12:00:00 AM EST 1.0 {tablet } active Augmentin 875-125 MG eCW1 ([facility]) Augmentin 875-125 MG UNK 10/26/2020 12:00:00 AM EST 1.0 {tablet } active Augmentin 875-125 MG eCW1 ([facility]) Augmentin 875-125 MG UNK 10/26/2020 12:00:00 AM EST 1.0 {tab let} suspended Augmentin 875-125 MG eCW1 ([facility]) Augmentin 875-125 MG UNK 10/26/2020 12:00:00 AM EST 1.0 {tablet } active Augmentin 875-125 MG eCW1 ([facility]) 10 mg 09/09/2020 12:00:00 AM EST tablet [...] BY MOUTH EVERY DAY SOLD: 12/29/2020 [facility] 10 mg 09/09/2020 12:00:00 AM EST tablet 30 TAKE ONE TABLET BY MOUTH EVERY DAY TAKE ONE TABLET BY MOUTH EVERY DAY SOLD: 01/29/2021 [facility] Loratadine 10 MG Oral Tablet [Claritin] Claritin 10 MG [facility] 10 MG 09/08/2020 12:00:00 AM EST 1.0 {tablet} active C laritin 10 MG eCW1 ([facility]) Loratadine 10 MG Oral Tablet [Claritin] Claritin 10 MG [facility] 10 MG 09/08/2020 12:00:00 AM EST 1.0 {tablet} active C laritin 10 MG eCW1 ([facility]) Loratadine 10 MG Oral Tablet [Claritin] Claritin 10 MG [place] [facility] 10 MG 09/08/2020 12:00:00 AM EST 1.0 {tablet} active C laritin 10 MG eCW1 ([facility]) Loratadine 10 MG Oral Tablet [Claritin] Claritin 10 MG [facility] 10 MG 09/08/2020 12:00:00 AM EST 1.0 {tablet} active C laritin 10 MG eCW1 ([facility]) Loratadine 10 MG Oral Tablet [Claritin] Claritin 10 MG [place] 10 MG 09/08/2020 12:00:00 AM EST 1.0 {tablet} active C laritin 10 MG eCW1 ([facility]) Loratadine 10 MG Oral Tablet [Claritin] Claritin 10 MG [place] 10 MG 09/08/2020 12:00:00 AM EST 1.0 {tablet} active C laritin 10 MG eCW1 ([facility]) Loratadine 10 MG Oral Tablet [Claritin] Claritin 10 MG [place] 10 MG 09/08/2020 12:00:00 AM EST 1.0 {tablet} active C laritin 10 MG eCW1 ([facility]) Loratadine 10 MG Oral Tablet [Claritin] Claritin 10 MG [place] 10 MG 09/08/2020 12:00:00 AM EST 1.0 {tablet} active C laritin 10 MG eCW1 ([facility]) Loratadine 10 MG Oral Tablet [Claritin] Claritin 10 MG [place] [facility] 10 MG 09/08/2020 12:00:00 AM EST 1.0 {tablet} active C laritin 10 MG eCW1 ([facility]) Loratadine 10 MG Oral Tablet [Claritin] Claritin 10 MG [place] tin 10 MG 09/08/2020 12:00:00 AM EST 1.0 {tablet} active C laritin 10 MG eCW1 ([facility]) Loratadine 10 MG Oral Tablet [Claritin] Claritin 10 MG [place] tin 10 MG 09/08/2020 12:00:00 AM EST 1.0 {tablet} active C laritin 10 MG eCW1 ([facility]) Loratadine 10 MG Oral Tablet [Claritin] Claritin 10 MG [place] 10 MG 09/08/2020 12:00:00 AM EST 1.0 {tablet} active C laritin 10 MG eCW1 ([facility]) Loratadine 10 MG Oral Tablet [Claritin] Claritin 10 MG [place] tin 10 MG 09/08/2020 12:00:00 AM EST 1.0 {tablet} active C laritin 10 MG eCW1 ([facility]) Loratadine 10 MG Oral Tablet [Claritin] Claritin 10 MG [facility] tin 10 MG 09/08/2020 12:00:00 AM EST 1.0 {tablet} active C laritin 10 MG eCW1 ([facility]) Loratadine 10 MG Oral Tablet [Claritin] Claritin 10 MG Ess[place] tin 10 MG 09/08/2020 12:00:00 AM EST 1.0 {tablet} active C laritin 10 MG eCW1 ([facility]) Loratadine 10 MG Oral Tablet [Claritin] Claritin 10 MG Ess[facility] tin 10 MG 09/08/2020 12:00:00 AM EST 1.0 {tablet} active C laritin 10 MG eCW1 ([facility]) Loratadine 10 MG Oral Tablet [Claritin] Claritin 10 MG Essence tin 10 MG 09/08/2020 12:00:00 AM EST 1.0 {tablet} active C laritin 10 MG eCW1 ([facility]) Loratadine 10 MG Oral Tablet [Claritin] Claritin 10 MG Essence tin 10 MG 09/08/2020 12:00:00 AM EST 1.0 {tablet} active C laritin 10 MG eCW1 ([facility]) Loratadine 10 MG Oral Tablet [Claritin] Claritin 10 MG Essence tin 10 MG 09/08/2020 12:00:00 AM EST 1.0 {tablet} active C laritin 10 MG eCW1 ([facility]) Loratadine 10 MG Oral Tablet [Claritin] Claritin 10 MG Ess[place] tin 10 MG 09/08/2020 12:00:00 AM EST 1.0 {tablet} active C laritin 10 MG eCW1 ([facility]) Loratadine 10 MG Oral Tablet [Claritin] Claritin 10 MG Essence tin 10 MG 09/08/2020 12:00:00 AM EST 1.0 {tablet} active C laritin 10 MG eCW1 ([facility]) Citalopram 40 MG Oral Tablet CITALOPRAM HYDROBROMIDE [...] TABLET BY MOUTH AT BEDTIME NEEDED SOLD: [facility] 150 mg 09/05/2020 12:00:00 AM EST [...] TABLET BY MOUTH EVERY DAY SOLD: 11/29/2020 [facility] Citalopram 40 MG Oral Tablet CITALOPRAM HYDROBROMIDE 09/05/2020 12:00:00 AM EST tablet 30 TAKE ONE TABLET BY MOUTH EVERY D AY TAKE ONE TABLET BY MOUTH EVERY DAY SOLD: 12/29/2020 [facility] Citalopram 40 MG Oral Tablet CITALOPRAM HYDROBROMIDE 09/05/2020 12:00:00 AM EST tablet 30 TAKE ONE TABLET BY MOUTH EVERY D AY TAKE ONE TABLET BY MOUTH EVERY DAY SOLD: 01/29/2021 [facility] atorvastatin 40 MG Oral Tablet [...] TABLET BY MOUTH EVERY DAY SOLD: 08/30/2020 [facility] 75 mcg 08/30/2020 12:00:00 AM [...] EVERY DAY SOLD: 12/29/2020 [facility] 75 mcg 08/30/2020 12:00:00 [...] type / Coverage type Policy ID Covered green party ID Covered green party's relationship to tucker Policy Tucker Plan Information [facility] ([facility]) [id number] Self [facility] I [id number] Self [id number] [facility] [id number] SP [id number] [facility] [id number] SP [id number] [facility] [id number] SP [id number] [facility] Maintenance [facility] ([facility]) [id number] Self [id number] EMEDNY [id number] SP [id number] [facility] [id number] SP [id number] EMEDNY [id number] SP [id number] Medicaid Dental P [id number] S [id number] MEDICAID [id number] SP [id number] R O [id number] S [id number] [facility] [id number] [facility] [id number] [facility] [id number] [facility] [id number] ANSI-Medicaid [id number] ANSI-Not a Secondary Insurance [id number] ANSI-Medicaid [id number] ANSI-Medicaid [id number] ANSI-Not a Secondary Insurance [id number] ANSI-Medicaid [id number] ANSI-Medicaid [id number] ANSI-Medicaid [id number] ANSI-Not a Secondary Insurance [id number] ANSI-Not a Secondary Insurance [id number] ANSI-Not a Secondary Insurance [id number] ANSI-Medicaid [id number] ANSI-Medicaid [id number] ANSI-Not a Secondary Insurance [id number] ANSI-Medicaid [id number] ANSI-Not a Secondary Insurance [id number] ANSI-Medicaid [id number] ANSI-Not a Secondary Insurance [id number] ANSI-Medicaid [id number] ANSI-Medicaid [id number] ANSI-Medicaid [id number] ANSI-Medicaid [id number] ANSI-Not a Secondary Insurance [id number] ANSI-Not a Secondary Insurance [id number] ANSI-Medicaid [id number] ANSI-Not a Secondary Insurance [id number] ANSI-Not a Secondary Insurance [id number] ANSI-Medicaid [id number] ANSI-Medicaid [id number] ANSI-Medicaid [id number] ANSI-Medicaid [id number] ANSI-Not a Secondary Insurance [id number]-[id number]-[id number] ANSI-Not a Secondary Insurance [id number]-5a29-65zk-[id number]-[id number] ANSI-Medicaid [id number] ANSI-Medicaid [id number] ANSI-Medicaid [id number] ANSI-Medicaid [id number] ANSI-Medicaid [id number] ANSI-Not a Secondary Insurance [id number] ANSI-Not a Secondary Insurance [id number]-[id number]-[id number]-537h-[id number] ANSI-Medicaid [id number] ANSI-Not a Secondary Insurance [id number] [id number] ANSI-Medicaid [id number] ANSI-Not a Secondary Insurance [id number]-61o5-[id number] ANSI-Medicaid [id number] ANSI-Medicaid [id number] ANSI-Medicaid [id number] ANSI-Not a Secondary Insurance [id number] [id number]-n79v-[id number] ANSI-Medicaid [id number] ANSI-Not a Secondary Insurance [id number]-nl6ut [id number] [id number] ANSI-Medicaid [id number] ANSI-Not a Secondary Insurance [id number]-[id number] 776o0ns lu094q7b-521q-[id number]-[id number] ANSI-Not a Secondary Insurance [id number] [id number] ANSI-Medicaid [id number] ANSI-Medicaid [id number] ANSI-Medicaid [id number] ANSI-Not a Secondary Insurance [id number]-[id number]-[id number] ANSI-Medicaid [id number] ANSI-Medicaid [id number] ANSI-Not a Secondary Insurance [id number] ANSI-Medicaid [id number] ANSI-Medicaid [id number] ANSI-Medicaid [id number] ANSI-Medicaid [id number] ANSI-Medicaid [id number] ANSI-Medicaid [id number] ANSI-Not a Secondary Insurance [id number] ANSI-Not a Secondary Insurance [id number] ANSI-Medicaid [id number] ANSI-Medicaid [id number] ANSI-Medicaid [id number] ANSI-Medicaid [id number] ANSI-Not a Secondary Insurance [id number] ANSI-Medicaid [id number] ANSI-Medicaid [id number] ANSI-Not a Secondary Insurance [id number] ANSI-Medicaid [id number] ANSI-Medicaid [id number] ANSI-Medicaid [id number] ANSI-Not a Secondary Insurance [id number] ANSI-Medicaid [id number] ANSI-Medicaid [id number] MEDICAID [id number] SP [id number] ANSI-Not a Secondary Insurance [id number] ANSI-Medicaid [id number] ANSI-Not a Secondary Insurance [id number] ANSI-Medicaid [id number] ANSI-Medicaid [id number] ANSI-Not a Secondary Insurance [id number] ANSI-Medicaid [id number] ANSI-Not a Secondary Insurance [id number] ANSI-Not a Secondary Insurance [id number] ANSI-Medicaid [id number] ANSI-Not a Secondary Insurance [id number] ANSI-Medicaid [id number] [facility] [id number] S [id number] ANSI-Not a Secondary Insurance [id number] ANSI-Medicaid [id number] ANSI-Not a Secondary Insurance [id number] ANSI-Medicaid [id number] [facility] [id number] ANSI-Not a Secondary Insurance [id number] ANSI-Medicaid [id number] ANSI-Medicaid [id number] ANSI-Not a Secondary Insurance [id number] SELF PAY ONLY [id number] SP [id number] [place] [id number] SP [id number] Q [facility] Health Maintenance Organization (HMO) [id number] Self [id number] [facility] Health Maintenance Organization (HMO) [id number] Self SELF PAY ONLY UNAVAILABLE SP UNAV AILABLE [employer] COMM[employer]AN MCDO [id number] SP [id number] [employer] COMMUNITY PLAN MCDO [id number] SP [id number] [facility] Health Maintenance Organization (HMO) [id number] Self [facility] Hmo Commercial [id number] Self [facility]) O [id number] S [id number] [employer] COMMUNITY PLAN MCDO [id number] SP [id number] Medicaid [place] Medigap Part B [id number] Self HMO BLUE [id number] SP [id number] BLUE CROSS KUMAR PLAN [id number] SP [id number] BLUE CROSS KUMAR PLAN [id number] SP [id number] [employer] COMMUNITY PLAN MCDHMO [id number] SP [id number] [employer] COMMUNITY PLAN MCDHMO [id number] SP [id number] [facility] HEA [id number] S [id number] [employer] COMMUNITY PLAN MCDHMO [id number] SP [id number] [employer] COMMUNITY PLAN XIX [id number] 18 [id number] [employer] COMMUNITY PLAN XIX [id number] 18 [id number] Problems, Conditions, and Diagnoses Code Display Name Description Problem Type Effective Dates Data Source(s) 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, lumbar region Other intervertebral disc displacement, lumbar region Diagnosis 03/26/2021 09:13:00 AM EDT [facility] M54.31 80580871 Right sided sciatica Problem 02/24/2021 12:0 0:00 AM EDT eCW1 ([facility]) M54.41 [id number] Acute right-sided low back pain with right-sided sciatica Problem 02/24/2021 12:00:00 AM EDT eCW1 ([facility]ly [facility]) N93.9 Abnormal uterine bleeding Abnormal uterine bleeding (A UB) Problem 02/17/2021 12:00:00 AM EDT eCW1 ([facility]) G47.00 [id number] Insomnia, unspecified type Problem 0 12:00:00 AM EST eCW1 ([facility]) Surgeries/Procedures Procedure Description Date Indications Data Source(s) Laminectomy One Interspace, Lumbar 05/07/2021 12:00:00 AM EDT [facility] ([facility] ) Laminectomy One Interspace, Lumbar 05/07/2021 12:00:00 AM EDT [facility] ([facility] ) Physical Therapy Eval - Mod Complexity 03/31/2021 12:0 0:00 AM EDT [facility] ([facility] ) OFFICE OUTPATIENT VISIT 25 MINUTES 03/31/2021 12:00:00 AM EDT [facility] ([facility] ) X-Ray Spine Lumbosacral Complete Inc Bending Views Min Of 6 03/10/2021 12:00:00 AM EDT [facility] ([facility] ) OFFICE OUTPATIENT VISIT 25 MINUTES 03/10/2021 12:00:00 AM EDT [facility] ([facility] ) Medication: Toradol 60mg/2mL IM (Ketorolac) 02/24/2021 12:00:00 AM EDT eCW1 ([facility]) Results ID Date Data Source [id number] 05/08/2021 12:20:28 PM EDT [facility] Name Value Range Interpretation Code Description Data Debbie rce(s) Supporting Document(s) POC GLUCOSE 180 mg/dL (70-99) H [facility] NOTIFIED NURSEPERFORMED BY CLINICAL S TAFF ID Date Data Source [id number] 05/08/2021 08:17:40 AM EDT [facility] Name Value Range Interpretation Code Description Data Debbie rce(s) Supporting Document(s) POC GLUCOSE 190 mg/dL (70-99) H [facility] PERFORMED BY CLINICAL STAFF ID Date Data Source [id number] 05/08/2021 07:55:28 AM EDT [facility] Name Value Range Interpretation Code Description Data Debbie rce(s) Supporting Document(s) WBC 11.9 10*3/uL (4.1-11.0) H [facility] RBC 3.84 10*6/uL (4.00-5.40) L [facility] HGB 11.5 g/dL (12.0-16.0) L [facility] HCT 35.8 % (36.0-47.0) L [facility] PERFORMED AT [address] [facility] [address] MCV 93.2 fL (80.0-95.0) [facility] MCH 30.1 pg (27.0-32.0) [facility] MCHC 32.3 g/dL (32.0-36.0) [facility] RDW 15.9 % (10.5-14.5) H [facility] PLT 263 10*3/uL (150-450) [facility] MPV 9.6 fL (7.1-10.7) [facility] ID Date Data Source [id number] 05/08/2021 02:44:28 AM EDT [facility] Name Value Range Interpretation Code Description Data Debbie rce(s) Supporting Document(s) POC GLUCOSE 297 mg/dL (70-99) H [facility] PERFORMED BY CLINICAL STAFF ID Date Data Source [id number] 05/07/2021 08:35:11 PM EDT [facility] Name Value Range Interpretation Code Description Data Debbie rce(s) Supporting Document(s) POC GLUCOSE 139 mg/dL (70-99) H [facility] PERFORMED BY CLINICAL STAFF ID Date Data Source [id number] 05/14/2021 10:43:00 AM EDT [facility] [place], [place] [address]ITYJHBK NAME: BETTY DEL RIODAWM OF : 1970REPORT: OPERATIONPATIENT NUMBER: [id number] STATUS: SDMEDICAL RECORD NUMBER: [id number] [id number] ADMISSION: 1DATE OF DISCHARGE:ROOM: 00DATE OF PROCEDURE: 05/07/2021REOPERATIVE DIAGNOSIS: Left L4-L5 disk extrusion recurrence producingspinal stenosis.POSTOPERATIVE DIAGNOSIS: Left L4-L5 disk extrusion recurrence producingspinal stenosis.PROCEDURE PERFORMED: Redo diskectomy at L4- L5 via left unilaterallaminectomy for decompression of the thecal sac and traversing nerve root.SURGEON: SANDIE HerrmannISTANT: CHRISTINA RichTHESIA: General.SPECIMENS INCLUDE: Disk material not [...] spine, kneesslightly flexed. Once I and the cardio clinician were comfortable with thepatient's positioning, she was [...] was drilled in the L5 lamina and Demarcuson-Kenneth was placed in the divot. We obtained [...] probably in the axilla, I dissected using Sammy-Kenneth blunt and carefully and then was able to obtain access orexpose the disk in the axilla. Next, we utilized Quan pituitaries toremove that disk in piecemeal fashion alternating with a Calles-Kenneth tofree up more of the extruded disk. Approximately 5 mm of disk material wasremoved. I explored with the Calles- Kenneth and the Trinity, no additionalextruded disk material was appreciated. I did enter the interspace with Guilleer pituitary at L4-L5, no additional friable disc [...] entirety of the case in thecapacity of conservation assistant assisting with the Seymour retractor and othernerve root retractors during this meticulous dissection of the scarredinfield.DICTATED BY: Amanuel Rnedon, MDDictated: 05/07/2021 19:48DT: 05/07/2021 19:53Job #: [id number]: [facility] reports are not confirmed orauthenticated unless they are signed by the providerElectronically Authenticated by:AMANUEL RENDON MD On 05/14/2021 10:43 AM EDT Name Value Range Interpretation Code Description Data Debbie rce(s) Supporting Document(s) ID Date Data Source [id number] 05/07/2021 11:23:34 AM EDT [facility] [place] [facility] Name Value Range Interpretation Code Description Data Debbie rce(s) Supporting Document(s) HEMOGLOBIN A1C @ 7.1 % (4.0-6.0) H [facility] Performed using Siemens Mcdermitt immunoassa y.Care must be taken when interpreting BpC7fkrljzvl in patients with a hemoglobin variantor decreased erythrocyte lifespan. Values 5.7 - 6.4% suggest prediabetes.Values >=6.5% are diagnostic for diabetes.REFERENCE: DIABETES CARE 2018: 41(S13-S27).PERFORMED AT [address] [facility] [address] EST AVERAGE GLUCOSE 157 mg/dL Lab Allluis enrique vieira [facility] ID Date Data Source [id number] 04/30/2021 08:21:00 AM EDT [facility] ([facility] ) Name Value Range Interpretation Code Description Data Debbie rce(s) Supporting Document(s) Laboratory test finding (navigational concept) Laboratory test result [facility] ([facility] ) ID Date Data Source CBC with Auto Differential 04/20/2021 12:00:00 AM EDT eCW1 ( [facility]) Name Value Range Interpretation Code Description Data Debbie rce(s) Supporting Document(s) 9.1 4.0-10.0 WHITE BLOOD COUNT eCW1 ([facility]) 4.14 4.00-5.40 RED BLOOD COUNT eCW1 ([facility]) 12.3 12.0-15.5 HEMOGLOBIN eCW1 ([facility]) 37.8 36.0-47.0 HEMATOCRIT eCW1 ([facility]) 32.5 32.0-36.5 MEAN CORPUSCULAR HGB CONC eCW1 ([facility]) 91.3 80.0-96.0 MEAN CORPUSCULAR VOLUME e CW1 ([facility]) 29.7 27.0-33.0 MEAN CORPUSCULAR HEMOGLOB IN eCW1 ([facility]) 331 150-450 PLATELET COUNT, AUTOMATED eCW1 ([facility]) 15.4 11.5-14.5 RED CELL DISTRIBUTION WID TH eCW1 ([facility]) 61.7 36.0-66.0 NEUTROPHILS % eCW1 ([facility]) 27.6 24.0-44.0 LYMPH % eCW1 ([facility]) 0.6 0.0-1.0 BASO % eCW1 ([facility]) 7.4 2.0-8.0 MONO % eCW1 ([facility]) 2.4 0.0-3.0 EOS % eCW1 ([facility]) 0.0 0-0 NUCLEATED RED BLOOD CELL % eCW 1 ([facility]) 5.6 1.5-8.5 NEUTROPHILS # eCW1 ([facility]) 0.3 0-3.0 IMMATURE GRANULOCYTE % eCW1 ([facility]) 2.5 1.5-5.0 LYMPH # eCW1 ([facility]) 0.2 0.0-0.5 EOS # eCW1 ([facility]) 0.7 0.0-0.8 MONO # eCW1 ([facility]) 0.1 0.0-0.2 BASO # eCW1 ([facility]) ID Date Data Source LIPASE 04/20/2021 12:00:00 AM EDT eCW1 ([facility]) Name Value Range Interpretation Code Description Data Debbie rce(s) Supporting Document(s) 151 73-393 LIPASE eCW1 ([facility]) ID Date Data Source Comprehensive Metabolic Profile (CMP) 04/20/2021 12:00:00 AM EDT eCW1 ([facility]) Name Value Range Interpretation Code Description Data Debbie rce(s) Supporting Document(s) 86 70-100 GLUCOSE, FASTING eCW1 ([facility] includes the [facility]) 0.81 0.55-1.30 CREATININE FOR GFR eCW1 ([facility]) 12 7-18 BLOOD UREA NITROGEN eCW1 ([facility]) > 60.0 >58 GLOMERULAR FILTRATION RATE eCW 1 ([facility]) 141 136-145 SODIUM LEVEL eCW1 ([facility]) 4.5 3.5-5.1 POTASSIUM SERUM eCW1 ([facility]) 9.0 8.5-10.1 CALCIUM LEVEL eCW1 ([facility]) 26 21-32 CARBON DIOXIDE LEVEL eCW1 ([facility]) 107 98-107 CHLORIDE LEVEL eCW1 ([facility]) 60 45-117 ALKALINE PHOSPHATASE eCW1 ([facility]) 0.4 0.2-1.0 BILIRUBIN,TOTAL eCW1 ([facility]) 24 7-37 AST/SGOT eCW1 ([facility]) 28 12-78 ALT/SGPT eCW1 ([facility]) 0.9 1.2-2.2 ALBUMIN/GLOBULIN RATIO eCW1 ([facility]) 7.4 6.4-8.2 TOTAL PROTEIN eCW1 ([facility]) 3.6 3.2-5.2 ALBUMIN eCW1 ([facility]) ID Date Data Source [id number] 03/30/2021 11:01:00 AM EDT [facility] [address] [place] [address] PHONE: [phone] FAX: [phone] Name .................. : QUANG Monge Acct Number.................. : [id number] ROOM. ................. : MR Number ................... : [id number] Stay type ............. : O/P Discharge Date......... ... : 03/26/21 Admit Date ......... : 03/26/21 Admit Phys .................... : BEKAH Date of ....... : 1970 Family Phys ................... : GREGORY BURCH Phone .................. : [phone] Age ................................ : 50 Film# .................. .:[id number] Sex ................................. : F Unsigned transcriptions are preliminary reports and do not represent a medical or legal document MRI LUMBAR SPINE W&W/O CONTRA [id number] COMPLETE:03/26/21 09:46 TITUS 05130 Reason for Exam: INTERVERTEBRAL DISC DISPLACEMENT MRI [...] By Dhruv Torres MD , 03/30/21 11:01, [facility] [address] 2 [place] [address] PH ONE: [phone] FAX: [phone] Name .................. : QUANG Monge Acct Number.................. : [id number] ROOM. ................. : MR Number ................... : [id number] Stay type ............. : O/P Discharge Date......... ... : 03/26/21 Admit Date ......... : 03/26/21 Admit Phys .................... : BEKAH Date of ....... : 1970 Family Phys ................... : GREGORY BURCH Phone .................. : [phone] Age ................................ : 50 Film# .................. .:[id number] Sex ................................. : F Unsigned transcriptions are preliminary reports and do not represent a medical or legal document MRI LUMBAR SPINE W&W/O CONTRA [id number] COMPLETE:03/26/21 09:46 TITUS 24053 Reason for Exam: INTERVERTEBRAL DISC DISPLACEMENT Transcribe Initials: EVA, Transcribe Date: 03/26/21 13:18, Dictation Date: Copy for: BEKAH Garrison via fax Copy for: 710 MED REC Page 2 of 2 Name Value Range Interpretation Code Description Data Debbie rce(s) Supporting Document(s) ID Date Data Source PAP REQUEST FOR SERVICE 02/17/2021 12:00:00 AM EDT [facility] ([facility]) Name Value Range Interpretation Code Description Data Debbie rce(s) Supporting Document(s) PAP REQUEST FOR SERVICE [facility] ( [facility]) ID Date Data Source [id number] 10/26/2020 04:57:00 PM EST [facility] Name Value Range Interpretation Code Description Data Debbie rce(s) Supporting Document(s) SARS coronavirus 2 RNA Not Detected [facility] This lab was ordered by [facility] and reported by [facility]. ID Date Data Source [id number] 10/26/2020 04:26:00 PM EST [facility] Name Value Range Interpretation Code Description Data Debbie rce(s) Supporting Document(s) SARS COVID ANTIGEN NEGATIVE [facility] This lab was ordered by [facility] nd reported by [facility]. ID Date Data Source Coronavirus 2019 NOSE (Send Out) COVID 10/26/2020 12:00:00 A M EST eCW1 ([facility]) Name Value Range Interpretation Code Description Data Debbie rce(s) Supporting Document(s) This nucleic acid amplification test was developed and its CORONAVIRUS 2019 NOSE eCW1 ([facility]) ID Date Data Source TOTAL IRON BINDING CAPACIT 08/27/2020 12:00:00 AM EST eCW1 ( [facility]) Name Value Range Interpretation Code Description Data Debbie rce(s) Supporting Document(s) 33 50-170 IRON (FE) eCW1 ([facility]) 431 250-450 TOTAL IRON BINDING CAPACI TY eCW1 ([facility]) 7.7 13.2-45.0 PERCENT SATURATION eCW1 ([facility]) ID Date Data Source [id number] 08/27/2020 12:00:00 AM EST eCW1 ([facility] includes the [facility]) Name Value Range Interpretation Code Description Data Debbie rce(s) Supporting Document(s) Hemoglobin A1c/Hemoglobin.total in Blood 6.9 HEMOGLOBIN A1c eCW1 ([facility]) ID Date Data Source FERRITIN 08/27/2020 12:00:00 AM EST eCW1 (Count includes the [facility]) Name Value Range Interpretation Code Description Data Debbie rce(s) Supporting Document(s) 11 8-252 FERRITIN eCW1 ([facility]) ID Date Data Source CBC - Complete Blood Count 08/27/2020 12:00:00 AM EST eCW1 ( [facility]) Name Value Range Interpretation Code Description Data Debbie rce(s) Supporting Document(s) 34.7 36.0-47.0 HEMATOCRIT eCW1 ([facility]) 7.9 4.0-10.0 WHITE BLOOD COUNT eCW1 ([facility]) 10.7 12.0-15.5 HEMOGLOBIN eCW1 ([facility]) 3.94 4.00-5.40 RED BLOOD COUNT eCW1 ([facility]) 30.8 32.0-36.5 MEAN CORPUSCULAR HGB CONC eCW1 ([facility]) 27.2 27.0-33.0 MEAN CORPUSCULAR HEMOGLOB IN eCW1 ([facility]) 88.1 80.0-96.0 MEAN CORPUSCULAR VOLUME e CW1 ([facility]) 333 150-450 PLATELET COUNT, AUTOMATED eCW1 ([facility]) 16.4 11.5-14.5 RED CELL DISTRIBUTION WID TH eCW1 ([facility]) Procedure Social History Code Duration Value Status Description Data Source(s ) Smoking 05/03/2021 12:00:00 AM EDT Never Smoker completed Never S moker eCW1 ([facility]) Smoking 05/03/2021 12:00:00 AM EDT Never Smoker completed Never S moker eCW1 ([facility]) Smoking 05/03/2021 12:00:00 AM EDT Never Smoker completed Never S moker [email or web address] (Formerly [facility], [facility]) Smoking 05/03/2021 12:00:00 AM EDT Never Smoker completed Never S moker [email or web address] (Formerly [facility], [facility]) Smoking 05/03/2021 12:00:00 AM EDT Never Smoker completed Never S moker [email or web address] (Formerly [facility], [facility]) Smoking 05/03/2021 12:00:00 AM EDT Never Smoker completed Never S moker [email or web address] (Formerly [facility], [facility]) Smoking 04/19/2021 12:00:00 AM EDT Never Smoker completed Never S moker [email or web address] (Formerly [facility], [facility]) Smoking 04/19/2021 12:00:00 AM EDT Never Smoker completed Never S moker [email or web address] (Formerly [facility], [facility]) Smoking 04/19/2021 12:00:00 AM EDT Never Smoker completed Never S moker [email or web address] (Formerly [facility], [facility]) Smoking 03/17/2021 12:00:00 AM EDT Never Smoker completed Never S moker [email or web address] (Formerly [facility], [facility]) Smoking 03/17/2021 12:00:00 AM EDT Never Smoker completed Never S moker [email or web address] (Formerly [facility], [facility]) Smoking 02/24/2021 12:00:00 AM EDT Never Smoker completed Never S moker [email or web address] (Formerly [facility], [facility]) Smoking 02/24/2021 12:00:00 AM EDT Never Smoker completed Never S moker [email or web address] (Formerly [facility], [facility]) Smoking 02/24/2021 12:00:00 AM EDT Never Smoker completed Never S moker [email or web address] (Formerly [facility], [facility]) Smoking 02/24/2021 12:00:00 AM EDT Never Smoker completed Never S moker [email or web address] (Formerly [facility], [facility]) Smoking 02/24/2021 12:00:00 AM EDT Never Smoker completed Never S moker [email or web address] (Formerly [facility], [facility]) Smoking 02/02/2021 12:00:00 AM EDT Never Smoker completed Never S moker [email or web address] (Formerly [facility], [facility]) Smoking 10/26/2020 12:00:00 AM EST Never Smoker completed Never S moker [email or web address] (Formerly [facility], [facility]) Smoking 10/26/2020 12:00:00 AM EST Never Smoker completed Never S moker [email or web address] (Formerly [facility], [facility]) Smoking 10/26/2020 12:00:00 AM EST Never Smoker completed Never S moker [email or web address] (Formerly [facility], [facility]) Smoking 08/27/2020 12:00:00 AM EST Never Smoker completed Never S moker [email or web address] (Formerly [facility], [facility]) Smoking 08/27/2020 12:00:00 AM EST Never Smoker completed Never S moker eCW1 (Formerly [facility], [facility]) Smoking 08/27/2020 12:00:00 AM EST Never Smoker completed Never S moker eCW1 (Formerly [facility], [facility]) Smoking 08/27/2020 12:00:00 AM EST Never Smoker completed Never S moker eCW1 (Formerly [facility], [facility]) Smoking 08/27/2020 12:00:00 AM EST Never Smoker completed Never S moker eCW1 (Formerly [facility], [facility]) Vital Signs ID Date Data Source UNK Name Value Range Interpretation Code Description Data Source(s) Body temperature 97.7 [degF] 97.7 [degF] MEDENT ([facility]) Body weight 219 [lb_av] 219 [lb_av] eCW1 ([facility]) Body height 63 [in_i] 63 [in_i] eCW1 (Count includes the [facility]) Body mass index (BMI) [Ratio] 38.79 kg/m2 38.79 kg/m2 eCW1 (Formerly [facility], [facility]) Heart rate 114 /min 114 /min eCW1 ([facility]) Respiratory rate 20 /min 20 /min eCW1 ([facility]) Body temperature 97.5 [degF] 97.5 [degF] eCW1 ( Formerly [facility], [facility]) Systolic blood pressure 130 mm[Hg] 130 mm[Hg] e CW1 (Formerly [facility], [facility]) Diastolic blood pressure 82 mm[Hg] 82 mm[Hg] eCW1 (Formerly [facility], [facility]) Body weight 224 [lb_av] 224 [lb_av] eCW1 ([facility]) Body height 63 [in_i] 63 [in_i] eCW1 (Count includes the [facility]) Body mass index (BMI) [Ratio] 39.68 kg/m2 39.68 kg/m2 eCW1 (Formerly [facility], [facility]) Heart rate 109 /min 109 /min eCW1 ([facility]) Respiratory rate 20 /min 20 /min eCW1 ([facility]) Body temperature 98.4 [degF] 98.4 [degF] eCW1 ( Formerly [facility], [facility]) Systolic blood pressure 122 mm[Hg] 122 mm[Hg] e CW1 ([facility]ly [facility], [facility]) Diastolic blood pressure 76 mm[Hg] 76 mm[Hg] eCW1 ([facility]ly [facility], [facility]) Body height 63.5 [in_i] 63.5 [in_i] MEDENT ([facility]) 5'3.50" Body temperature 97.7 [degF] 97.7 [degF] MEDENT ([facility]) Body weight 227.00 [lb_av] 227.00 [lb_av] MEDEN T ([facility]) Body mass index (BMI) [Ratio] 39.6 kg/m2 39.6 k g/m2 MEDENT ([facility]) Body weight 228.2 [lb_av] 228.2 [lb_av] eCW1 ([facility]ly [facility]) Body height 63 [in_i] 63 [in_i] eCW1 (Count includes the [facility]) Body mass index (BMI) [Ratio] 40.42 kg/m2 40.42 kg/m2 eCW1 (Formerly [facility], [facility]) Systolic blood pressure 12 mm[Hg] 12 mm[Hg] e CW1 ([facility]ly [facility], [facility]) Diastolic blood pressure 74 mm[Hg] 74 mm[Hg] eCW1 ([facility]ly [facility], [facility]) Body weight 229 [lb_av] 229 [lb_av] eCW1 ([facility]) Body height 63 [in_i] 63 [in_i] eCW1 (Count includes the [facility]) Body mass index (BMI) [Ratio] 40.56 kg/m2 40.56 kg/m2 eCW1 ([facility]ly [facility], [facility]) Heart rate 76 /min 76 /min eCW1 ([facility]) Respiratory rate 20 /min 20 /min eCW1 ([facility]) Body temperature 98.8 [degF] 98.8 [degF] eCW1 ( [facility]) Systolic blood pressure 130 mm[Hg] 130 mm[Hg] e CW1 ([facility], [facility]) Diastolic blood pressure 70 mm[Hg] 70 mm[Hg] eCW1 ([facility]ly [facility], [facility]) Body weight 228.0 [lb_av] 228.0 [lb_av] eCW1 ([facility]ly [facility]) Body height 63 [in_i] 63 [in_i] eCW1 (Count includes the [facility]) Body mass index (BMI) [Ratio] 40.38 kg/m2 40.38 kg/m2 eCW1 ([facility]ly [facility], [facility]) Systolic blood pressure 132 mm[Hg] 132 mm[Hg] e CW1 ([facility]) Diastolic blood pressure 88 mm[Hg] 88 mm[Hg] eCW1 ([facility]) Body weight 229 [lb_av] 229 [lb_av] eCW1 ([facility]) Diastolic blood pressure 80 mm[Hg] 80 mm[Hg] eCW1 ([facility]) Body height 63 [in_i] 63 [in_i] eCW1 (Count includes the [facility]) Body mass index (BMI) [Ratio] 40.56 kg/m2 40.56 kg/m2 eCW1 ([facility]ly [facility], [facility]) Heart rate 104 /min 104 /min eCW1 ([facility]) Respiratory rate 18 /min 18 /min eCW1 ([facility]) Body temperature 97.7 [degF] 97.7 [degF] eCW1 ( [facility]ly [facility]) Systolic blood pressure 130 mm[Hg] 130 mm[Hg] e CW1 ([facility]) Systolic blood pressure 148 mm[Hg] 148 mm[Hg] M EDENT ([facility], ) Diastolic blood pressure 88 mm[Hg] 88 mm[Hg] MEDENT ([facility]) Heart rate 105 /min 105 /min MEDENT ([facility]) Body height 63 [in_i] 63 [in_i] [facility] ([facility]) 5'3" Body weight 224.12 [lb_av] 224.12 [lb_av] MEDEN T ([facility]) Body mass index (BMI) [Ratio] 39.7 kg/m2 39.7 k g/m2 [facility] ([facility]) [place] body weight 115 [lb_av] 115 [lb_av] MEDEN T ([facility]) Body weight 101.663 kg 101.663 kg [facility] ([facility]) Body surface area Derived from formula 2.03 m2 2.03 m2 [facility] ([facility]) Systolic blood pressure 139 mm[Hg] 139 mm[Hg] M EDENT ([facility], ) Diastolic blood pressure 93 mm[Hg] 93 mm[Hg] MEDENT ([facility]) Heart rate 87 /min 87 /min MEDENT ([facility]) Body height 63 [in_i] 63 [in_i] MEDENT ([facility]) 5'3" Body weight 220.38 [lb_av] 220.38 [lb_av] MEDEN T ([facility]) Body mass index (BMI) [Ratio] 39.0 kg/m2 39.0 k g/m2 MEDENT ([facility]) [place] body weight 115 [lb_av] 115 [lb_av] MEDEN T ([facility]) Body weight 99.962 kg 99.962 [facility] Body surface area Derived from formula 2.02 m2 2.02 m2 [facility] ([facility]) Diastolic blood pressure 80 mm[Hg] 80 mm[Hg] eCW1 (Formerly [facility]) Body height 63 [in_i] 63 [in_i] eCW1 (Count includes the [facility]) Body mass index (BMI) [Ratio] 38.79 kg/m2 38.79 kg/m2 eCW1 (Formerly [facility], [facility]) Heart rate 104 /min 104 /min eCW1 ([facility]) Respiratory rate 18 /min 18 /min eCW1 ([facility]) Body temperature 98.3 [degF] 98.3 [degF] eCW1 ( Formerly [facility]) Systolic blood pressure 108 mm[Hg] 108 mm[Hg] e CW1 ([facility]ly [facility], [facility]) Body weight 219 [lb_av] 219 [lb_av] eCW1 ([facility]) Body weight 220 [lb_av] 220 [lb_av] eCW1 ([facility]) Body height 63 [in_i] 63 [in_i] eCW1 (Count includes the [facility]) Body mass index (BMI) [Ratio] 38.97 kg/m2 38.97 kg/m2 eCW1 ([facility]) Heart rate 97 /min 97 /min eCW1 ([facility]) Respiratory rate 20 /min 20 /min eCW1 ([facility]) Body temperature 97.9 [degF] 97.9 [degF] eCW1 ( [facility], [facility]) Systolic blood pressure 138 mm[Hg] 138 mm[Hg] e CW1 ([facility], [facility]) Diastolic blood pressure 80 mm[Hg] 80 mm[Hg] eCW1 (Formerly [facility], [facility]) Patient Treatment Plan of Care Planned Activity Planned Date Details Description Data Source (s) Ronna LIZARRAGA 4 MG 04/19/2021 12:00:00 AM EDT eCW1 (Formerly [facility], [facility]) Omeprazole 10 MG Delayed Release Oral Capsule 04/19/2021 12:00:00 A M EDT eCW1 (Formerly [facility], [facility]) Zofran ODT 4 MG 04/19/2021 12:00:00 AM EDT eCW1 (Formerly [facility], [facility]) Omeprazole 10 MG Delayed Release Oral Capsule 04/19/2021 12:00:00 A M EDT eCW1 (Formerly [facility], [facility]) Zofran ODT 4 MG 04/19/2021 12:00:00 AM EDT eCW1 (Formerly [facility], [facility]) Omeprazole 10 MG Delayed Release Oral Capsule 04/19/2021 12:00:00 A M EDT eCW1 ([facility]ly [facility], [facility]) Zofran ODT 4 MG 04/19/2021 12:00:00 AM EDT eCW1 ([facility]ly [facility], [facility]) Omeprazole 10 MG Delayed Release Oral Capsule 04/19/2021 12:00:00 A M EDT eCW1 ([facility]ly [facility]) Zofran ODT 4 MG 04/19/2021 12:00:00 AM EDT eCW1 ([facility]ly [facility]) Omeprazole 10 MG Delayed Release Oral Capsule 04/19/2021 12:00:00 A M EDT eCW1 ([facility]ly [facility]) Zofran ODT 4 MG 04/19/2021 12:00:00 AM EDT eCW1 ([facility]) Omeprazole 10 MG Delayed Release Oral Capsule 04/19/2021 12:00:00 A M EDT eCW1 ([facility]ly [facility]) Zofran ODT 4 MG 04/19/2021 12:00:00 AM EDT eCW1 ([facility]) Omeprazole 10 MG Delayed Release Oral Capsule 04/19/2021 12:00:00 A M EDT eCW1 ([facility]ly [facility]) Zofran ODT 4 MG 04/19/2021 12:00:00 AM EDT eCW1 ([facility]) Omeprazole 10 MG Delayed Release Oral Capsule 04/19/2021 12:00:00 A M EDT eCW1 ([facility]) Zofran ODT 4 MG 04/19/2021 12:00:00 AM EDT eCW1 ([facility]) Omeprazole 10 MG Delayed Release Oral Capsule 04/19/2021 12:00:00 A M EDT eCW1 ([facility]ly [facility], [facility]) Loestrin 1.5/30 (21) 1.5-30 MG-MCG 03/31/2021 12:00:00 AM EDT eCW1 ([facility]ly [facility], [facility]) Loestrin 1.5/30 (21) 1.5-30 MG-MCG 03/31/2021 12:00:00 AM EDT eCW1 (Formerly [facility], [facility]) Seasonique 0.15-0.03 &0.01 MG 03/17/2021 12:00:00 AM EDT eCW1 ([facility]ly [facility], [facility]) Seasonique 0.15-0.03 &0.01 MG 03/17/2021 12:00:00 AM EDT eCW1 ([facility]ly [facility], [facility]) Naproxen 500 MG Oral Tablet 03/04/2021 12:00:00 AM EDT eCW1 ([facility], [facility]) Naproxen 500 MG Oral Tablet 03/04/2021 12:00:00 AM EDT eCW1 ([facility]) Naproxen 500 MG Oral Tablet 03/04/2021 12:00:00 AM EDT eCW1 ([facility]) Naproxen 500 MG Oral Tablet 03/04/2021 12:00:00 AM EDT eCW1 ([facility]ly [facility], [facility]) Ketorolac Tromethamine 10 MG Oral Tablet 02/24/2021 12:00:00 AM EDT eCW1 ([facility]ly [facility], [facility]) tizanidine 4 MG Oral Tablet 02/24/2021 12:00:00 AM EDT eCW1 ([facility]ly [facility], [facility]) Ketorolac Tromethamine 10 MG Oral Tablet 02/24/2021 12:00:00 AM EDT eCW1 ([facility]ly [facility], [facility]) tizanidine 4 MG Oral Tablet 02/24/2021 12:00:00 AM EDT eCW1 ([facility], [facility]) tizanidine 4 MG Oral Tablet 02/24/2021 12:00:00 AM EDT eCW1 ([facility]) Ketorolac Tromethamine 10 MG Oral Tablet 02/24/2021 12:00:00 AM EDT eCW1 ([facility]) Ketorolac Tromethamine 10 MG Oral Tablet 02/24/2021 12:00:00 AM EDT eCW1 ([facility], [facility]) tizanidine 4 MG Oral Tablet 02/24/2021 12:00:00 AM EDT eCW1 ([facility]) Ketorolac Tromethamine 10 MG Oral Tablet 02/24/2021 12:00:00 AM EDT eCW1 ([facility]) tizanidine 4 MG Oral Tablet 02/24/2021 12:00:00 AM EDT eCW1 ([facility]) Naproxen 500 MG Oral Tablet 02/02/2021 12:00:00 AM EDT eCW1 ([facility]ly [facility], [facility]) Augmentin 875-125 MG 10/26/2020 12:00:00 AM EST eCW1 ([facility]ly [facility], [facility]) Augmentin 875-125 MG 10/26/2020 12:00:00 AM EST eCW1 ([facility]ly [facility], [facility]) Augmentin 875-125 MG 10/26/2020 12:00:00 AM EST eCW1 ([facility]ly [facility], [facility]) Loratadine 10 MG Oral Tablet [Claritin] 09/08/2020 12:00:00 AM EST eCW1 ([facility]ly [facility], [facility]) Loratadine 10 MG Oral Tablet [Claritin] 09/08/2020 12:00:00 AM EST eCW1 ([facility], [facility]) Loratadine 10 MG Oral Tablet [Claritin] 09/08/2020 12:00:00 AM EST eCW1 ([facility]) Loratadine 10 MG Oral Tablet [Claritin] 09/08/2020 12:00:00 AM EST eCW1 ([facility]) Loratadine 10 MG Oral Tablet [Claritin] 09/08/2020 12:00:00 AM EST eCW1 (Formerly [facility], [facility])
--- NOTE | 2021-09-05 07:08 | REPVR ---
PROCEDURE INFORMATION: Exam: XR Chest Exam date and time: 09/05/2021 6:06 AM Age: 50 years old Clinical indication: Other: Upper abd pain TECHNIQUE: Imaging protocol: XR of the chest. Views: 2 views. COMPARISON: CR CHEST 2 VIEWS 06/10/2020 9:09 AM FINDINGS: Lungs: Low lung volumes. No consolidation. Pleural spaces: Unremarkable. No pleural effusion. No pneumothorax. Heart/Mediastinum: Unremarkable. No cardiomegaly. Bones/joints: Unremarkable. IMPRESSION: No acute abnormalities are identified. Electronically signed by: Freddy Epstein On 09/05/2021 07:08:14 AM
--- NOTE | 2021-09-05 07:16 | REPVR ---
PROCEDURE INFORMATION: Exam: US Abdomen, Limited; Right Upper Quadrant Exam date and time: 09/05/2021 6:37 AM Age: 50 years old Clinical indication: Abdominal pain; Acute; Additional info: Upper abd pain TECHNIQUE: Imaging protocol: US abdomen. Real time ultrasound with image documentation. Limited exam focused on the right upper quadrant. COMPARISON: Abdomen, limited US 04/20/2021 9:45 AM FINDINGS: Liver: Diffuse increased echogenicity, consistent with fatty infiltration. No mass or intrahepatic biliary duct dilatation. Gallbladder: Unremarkable. No gallstones or gallbladder wall thickening. Common bile duct: Bile ducts are normal in caliber. CBD 4 mm. Pancreas: Obscured by bowel gas. Right kidney: Right kidney measures 10.4 cm in length. No hydronephrosis. Intraperitoneal space: No free fluid. IMPRESSION: 1. Hepatic steatosis. 2. No evidence of cholelithiasis or cholecystitis. Electronically signed by: Freddy Epstein On 09/05/2021 07:16:07 AM
[2021-09-05] MEDS ORDERED: PERC5TAB12 PO (08:03)
[2021-09-05] MEDS ORDERED: PEPC1TAB5 PO (08:03)
[2021-09-05 08:10] VITALS: BP 139/69
[2021-09-05] MEDS ORDERED: OXYCODONE/APAP 5MG/325MG(BULK FOR ED) 1 TABLET PO ONE (08:15)
--- NOTE | 2021-09-05 21:06 | ECGEPIP ---
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
== END 2021-09-05 08:32 | disposition home or self-care (01) ==
LOC: M ED 20:18
DX: R10.10 Upper abdominal pain, unspecified (principal); R94.39 Abnormal result of other cardiovascular function study; K76.0 Fatty (change of) liver, not elsewhere classified; E78.5 Hyperlipidemia, unspecified; E03.9 Hypothyroidism, unspecified; F41.9 Anxiety disorder, unspecified; F32.9 Major depressive disorder, single episode, unspecified; E28.2 Polycystic ovarian syndrome
CPT/HCPCS: 71046; 76705; 80048; 80076; 81001; 83690; 84703; 85025; 93005; 96374; 96375; 99284; J2270; J2405

== ENCOUNTER → 2021-09-06 | Outpatient (REF) | payer OTHER, MEDICAID ==
[~2021-09-06] MED LIST changes: -CITA40TA4 PO; +CITA40TA7 PO; +LORA-622 PO; +PEPC1TAB5 PO; +TIZA10TA PO; -TIZA4TAB4 PO
== END ==
LOC: M LAB REF 19:55
PROVIDERS: ATTEND Physician Assistant
DX: J06.9 Acute upper respiratory infection, unspecified (principal)

== ENCOUNTER → 2021-10-30 | Outpatient (CLI) | payer OTHER ==
[2021-10-30 09:17] LABS: CHOLESTEROL RISK RATIO 2.515 (<5); FREE T4 1.08 NG/DL (0.76-1.46); THYROID STIMULATING HORMONE 1.63 uIU/ML (0.358-3.740)
== END ==
LOC: M PLALAB 07:34
PROVIDERS: ATTEND Nurse Practitioner Family
DX: E03.9 Hypothyroidism, unspecified (principal)

== ENCOUNTER → 2021-11-08 | Outpatient (REF) | payer OTHER, MEDICAID ==
[2021-11-08 10:55] LABS: CREATININE, URINE 36.5 MG/DL; MALB URINE SIEMENS < 5.0 MG/L; MAU/CREAT RATIO 13.6 MCG/MG (0.0-30.0)
== END ==
LOC: M SFHCPLAZ 09:59
PROVIDERS: ATTEND Family Medicine
DX: E11.69 Type 2 diabetes mellitus with other specified complication (principal)

== ENCOUNTER → 2022-02-14 | Outpatient (CLI) | payer OTHER, MEDICAID ==
[2022-02-14 15:49] LABS: ALBUMIN 3.5 GM/DL (3.2-5.2); ALT/SGPT 26 U/L (12-78); AMYLASE 101 U/L (25-115); BASO # 0.1 10^3/uL (0.0-0.2); BASO % 0.7 % (0.0-1.0); BILIRUBIN,TOTAL 0.3 MG/DL (0.2-1.0); BLOOD UREA NITROGEN 7 MG/DL (7-18); CALCIUM LEVEL 8.7 MG/DL (8.5-10.1); CARBON DIOXIDE LEVEL 29 MEQ/L (21-32); CHLORIDE LEVEL 104 MEQ/L (98-107); CREATININE FOR GFR 0.77 MG/DL (0.55-1.30); EOS # 0.2 10^3/uL (0.0-0.5); EOS % 2.7 % (0.0-3.0); GLOMERULAR FILTRATION RATE > 60.0 (>58); GLUCOSE, FASTING 102 MG/DL (70-100); HEMATOCRIT 31.2 % (36.0-47.0); HEMOGLOBIN 9.6 g/dl (12.0-15.5); LIPASE 229 U/L (73-393); LYMPH # 2.5 10^3/uL (1.5-5.0); LYMPH % 30.2 % (24.0-44.0); MEAN CORPUSCULAR HEMOGLOBIN 24.2 pg (27.0-33.0); MEAN CORPUSCULAR HGB CONC 30.8 g/dl (32.0-36.5); MEAN CORPUSCULAR VOLUME 78.6 fl (80.0-96.0); MONO # 0.6 10^3/uL (0.0-0.8); MONO % 7.5 % (2.0-8.0); NEUTROPHILS # 4.8 10^3/uL (1.5-8.5); NEUTROPHILS % 58.4 % (36.0-66.0); PLATELET COUNT, AUTOMATED 406 10^3/uL (150-450); POTASSIUM SERUM 4.1 MEQ/L (3.5-5.1); RED BLOOD COUNT 3.97 10^6/uL (4.00-5.40); SODIUM LEVEL 138 MEQ/L (136-145); TOTAL PROTEIN 7.2 GM/DL (6.4-8.2); WHITE BLOOD COUNT 8.3 10^3/uL (4.0-10.0)
== END ==
LOC: M PLALAB 13:25
PROVIDERS: ATTEND Physician Assistant
DX: R10.30 Lower abdominal pain, unspecified (principal)

== ENCOUNTER → 2022-02-15 | Outpatient (CLI) | payer OTHER, MEDICAID ==
[2022-02-15 17:11] LABS: BASO # 0.1 10^3/uL (0.0-0.2); BASO % 0.8 % (0.0-1.0); EOS # 0.2 10^3/uL (0.0-0.5); EOS % 2.6 % (0.0-3.0); HEMATOCRIT 27.8 % (36.0-47.0); HEMOGLOBIN 8.6 g/dl (12.0-15.5); LYMPH # 2.9 10^3/uL (1.5-5.0); LYMPH % 37.3 % (24.0-44.0); MEAN CORPUSCULAR HEMOGLOBIN 24.2 pg (27.0-33.0); MEAN CORPUSCULAR HGB CONC 30.9 g/dl (32.0-36.5); MEAN CORPUSCULAR VOLUME 78.3 fl (80.0-96.0); MONO # 0.6 10^3/uL (0.0-0.8); MONO % 7.6 % (2.0-8.0); NEUTROPHILS % 51.4 % (36.0-66.0); PLATELET COUNT, AUTOMATED 384 10^3/uL (150-450); RED BLOOD COUNT 3.55 10^6/uL (4.00-5.40); WHITE BLOOD COUNT 7.8 10^3/uL (4.0-10.0)
[2022-02-15 17:17] LABS: FREE T4 1.02 NG/DL (0.76-1.46); THYROID STIMULATING HORMONE 1.58 uIU/ML (0.358-3.740)
== END ==
LOC: M PLALAB 14:27
PROVIDERS: ATTEND Physician Assistant
DX: D64.9 Anemia, unspecified (principal)

== ENCOUNTER → 2022-02-18 | Outpatient (CLI) | payer OTHER ==
[~2022-02-18] MED LIST changes: +OMEP10CASR PO; +TRUL10IN SC
== END ==
LOC: M PLALAB 12:00
PROVIDERS: ATTEND Family Medicine
DX: D50.9 Iron deficiency anemia, unspecified (principal)

== ENCOUNTER → 2022-02-18 | Outpatient (CLI) | payer OTHER ==
[~2022-02-18] MED LIST changes: +GASTROGRAFIN SOLUTION 30ML (Q9963) ONE; +ISOVUE-370 76% 100ML VIAL ONE
== END ==
LOC: M PLAIMG 11:56
PROVIDERS: ATTEND Physician Assistant
DX: R10.30 Lower abdominal pain, unspecified (principal)
CPT/HCPCS: 74177; Q9963; Q9967

== ENCOUNTER → 2022-02-22 | Outpatient (CLI) | payer OTHER ==
[~2022-02-22] MED LIST changes: -GASTROGRAFIN SOLUTION 30ML (Q9963) ONE; -ISOVUE-370 76% 100ML VIAL ONE
[2022-02-22 17:09] LABS: BASO # 0.1 10^3/uL (0.0-0.2); BASO % 0.5 % (0.0-1.0); EOS # 0.3 10^3/uL (0.0-0.5); EOS % 2.8 % (0.0-3.0); HEMATOCRIT 30.3 % (36.0-47.0); HEMOGLOBIN 9.1 g/dl (12.0-15.5); LYMPH # 3.1 10^3/uL (1.5-5.0); LYMPH % 32.5 % (24.0-44.0); MEAN CORPUSCULAR HEMOGLOBIN 23.7 pg (27.0-33.0); MEAN CORPUSCULAR VOLUME 78.9 fl (80.0-96.0); MONO % 11.1 % (2.0-8.0); NEUTROPHILS # 4.9 10^3/uL (1.5-8.5); NEUTROPHILS % 52.7 % (36.0-66.0); PLATELET COUNT, AUTOMATED 391 10^3/uL (150-450); RED BLOOD COUNT 3.84 10^6/uL (4.00-5.40); WHITE BLOOD COUNT 9.4 10^3/uL (4.0-10.0)
[2022-02-22 17:26] LABS: HEMOGLOBIN A1c 6.1 %
== END ==
LOC: M PLALAB 14:28
PROVIDERS: ATTEND Physician Assistant
DX: D50.9 Iron deficiency anemia, unspecified (principal)

== ENCOUNTER 2022-02-23 12:22 | Outpatient (CLI) | payer OTHER ==
[~2022-02-23] VITALS: Ht 160 cm; Wt 96.3 kg
[~2022-02-23 12:22] MED LIST changes: +ALBUTEROL SULFATE 2.5 MG/0.5 ML INH NEB SOLN INH PRN; +EPINEPHrine INJ 1 MG/ML 1ML AMP IM PRN; -OMEP10CASR PO; -TRUL10IN SC; +diphenhydrAMINE 50MG/ML VIAL (J1200) IV PRN; +methylPREDNISolone 125MG 2ML VIAL IV PRN
[2022-02-23] MEDS ORDERED: IRON SUCROSE 25 MG in NS 25 ML IV ONE (12:30)
[2022-02-23] MEDS ORDERED: IRON SUCROSE 225 MG in NS 225 ML IV ONE (12:30)
[2022-02-23] MEDS ORDERED: NS 1,000 ML IV SCH (12:30)
[2022-02-23 12:35] VITALS: BP 141/85
[2022-02-23] MEDS ORDERED: OMEP10CASR PO (13:22)
[2022-02-23] MEDS ORDERED: TRUL10IN SC (13:23)
[2022-02-23 13:30] VITALS: BP 125/78
[2022-02-23 14:30] VITALS: BP 139/83
== END 2022-02-23 14:30 | disposition home or self-care (01) ==
LOC: M INFU 12:22
PROVIDERS: ATTEND Physician Assistant
DX: D50.9 Iron deficiency anemia, unspecified (principal)
CPT/HCPCS: 96365; J1200

== ENCOUNTER → 2022-03-29 | Outpatient (CLI) | payer OTHER ==
[~2022-03-29] MED LIST changes: -ALBUTEROL SULFATE 2.5 MG/0.5 ML INH NEB SOLN INH PRN; -EPINEPHrine INJ 1 MG/ML 1ML AMP IM PRN; +OMEP10CASR PO; +TRUL10IN SC; -diphenhydrAMINE 50MG/ML VIAL (J1200) IV PRN; -methylPREDNISolone 125MG 2ML VIAL IV PRN
[2022-03-29 15:40] LABS: BASO % 0.6 % (0.0-1.0); EOS # 0.2 10^3/uL (0.0-0.5); EOS % 2.9 % (0.0-3.0); HEMATOCRIT 32.2 % (36.0-47.0); LYMPH # 2.4 10^3/uL (1.5-5.0); LYMPH % 38.4 % (24.0-44.0); MEAN CORPUSCULAR HEMOGLOBIN 26.4 pg (27.0-33.0); MEAN CORPUSCULAR HGB CONC 31.1 g/dl (32.0-36.5); MONO # 0.5 10^3/uL (0.0-0.8); MONO % 8.4 % (2.0-8.0); NEUTROPHILS # 3.1 10^3/uL (1.5-8.5); NEUTROPHILS % 49.4 % (36.0-66.0); PLATELET COUNT, AUTOMATED 305 10^3/uL (150-450); RED BLOOD COUNT 3.79 10^6/uL (4.00-5.40); WHITE BLOOD COUNT 6.3 10^3/uL (4.0-10.0)
[2022-03-29 16:03] LABS: PERCENT SATURATION 7.6 % (13.2-45.0)
== END ==
LOC: M PLALAB 13:30
PROVIDERS: ATTEND Physician Assistant
DX: D50.9 Iron deficiency anemia, unspecified (principal)

== ENCOUNTER → 2022-04-17 | Outpatient (CLI) | payer OTHER ==
[~2022-04-17] MED LIST changes: +ALPR0.5T3 PO; +FERR325T3 PO; +LORA-674 PO; +OMEP-173 PO
== END ==
LOC: M LABSMTC 09:27
PROVIDERS: ATTEND Anesthesiology
DX: Z01.812 Encounter for preprocedural laboratory examination (principal)

== ENCOUNTER 2022-04-20 10:22 | Day surgery (SDC) | payer OTHER ==
[~2022-04-20] VITALS: Ht 160 cm; Wt 94.5 kg
[~2022-04-20 10:22] MED LIST changes: +NS 1,000 ML IV ONE
[2022-04-20] MEDS ORDERED: LIDOCAINE 2% 100MG/5ML SDV (FOR ANES.) As Ordered ONE (11:19)
[2022-04-20] MEDS ORDERED: propofoL 200 MG/20 ML VIAL As Ordered ONE (11:19)
[2022-04-20] MEDS ORDERED: fentaNYL 100 MCG/2 ML INJECTION As Ordered ONE (11:54)
[2022-04-20 12:55] VITALS: BP 136/77
== END 2022-04-20 12:50 | disposition home or self-care (01) ==
LOC: M OPP 10:22
PROVIDERS: ATTEND Surgery
DX: D50.9 Iron deficiency anemia, unspecified (principal); E11.9 Type 2 diabetes mellitus without complications; E03.9 Hypothyroidism, unspecified; E78.00 Pure hypercholesterolemia, unspecified; G57.92 Unspecified mononeuropathy of left lower limb; F41.9 Anxiety disorder, unspecified; F32.9 Major depressive disorder, single episode, unspecified; Z79.02 Long term (current) use of antithrombotics/antiplatelets; Z79.52 Long term (current) use of systemic steroids; Z79.84 Long term (current) use of oral hypoglycemic drugs; Z79.899 Other long term (current) drug therapy; Z88.8 Allergy status to other drugs, medicaments and biological substances; Z91.048 Other nonmedicinal substance allergy status
CPT/HCPCS: 43235; 45378; J3010

== ENCOUNTER 2022-11-20 07:53 | Emergency (ER) | payer OTHER ==
[~2022-11-20] VITALS: Ht 160 cm; Wt 94.4 kg
[~2022-11-20 07:53] MED LIST changes: -NS 1,000 ML IV ONE
[2022-11-20] MEDS ORDERED: KETOROLAC 30 MG/ML 1ML VIAL IV ONE (08:40)
[2022-11-20] MEDS ORDERED: METOCLOPRAMIDE INJ 10MG/2ML VIAL IV ONE (08:40)
[2022-11-20 08:53] LABS: BASO % 0.5 % (0.0-1.0); EOS # 0.1 10^3/uL (0.0-0.5); HEMATOCRIT 33.8 % (36.0-47.0); HEMOGLOBIN 10.7 g/dl (12.0-15.5); LYMPH # 1.1 10^3/uL (1.5-5.0); LYMPH % 19.5 % (24.0-44.0); MEAN CORPUSCULAR HGB CONC 31.7 g/dl (32.0-36.5); MEAN CORPUSCULAR VOLUME 85.1 fl (80.0-96.0); MONO # 0.5 10^3/uL (0.0-0.8); MONO % 8.7 % (2.0-8.0); NEUTROPHILS % 68.8 % (36.0-66.0); PLATELET COUNT, AUTOMATED 348 10^3/uL (150-450); RED BLOOD COUNT 3.97 10^6/uL (4.00-5.40); WHITE BLOOD COUNT 5.9 10^3/uL (4.0-10.0)
[2022-11-20 09:22] LABS: LIPASE 34 U/L (12-53)
[2022-11-20 09:28] LABS: ALBUMIN 3.5 G/DL (3.2-5.2); ALKALINE PHOSPHATASE 81 U/L (46-116); ALT/SGPT 30 U/L (7.0-40); AST/SGOT 28 U/L (<34); BILIRUBIN,DIRECT 0.1 MG/DL (<0.4); BILIRUBIN,TOTAL 0.4 MG/DL (0.3-1.2); BLOOD UREA NITROGEN 7 MG/DL (9-23); CALCIUM LEVEL 8.9 MG/DL (8.5-10.1); CARBON DIOXIDE LEVEL 26 MMOL/L (20-31); CHLORIDE LEVEL 103 MMOL/L (98-107); CREATININE FOR GFR 0.73 MG/DL (0.55-1.30); GLOMERULAR FILTRATION RATE > 60.0 (>58); GLUCOSE, FASTING 111 MG/DL (60-100); POTASSIUM SERUM 4.2 MMOL/L (3.5-5.1); SODIUM LEVEL 137 MMOL/L (136-145); TOTAL PROTEIN 6.8 G/DL (5.7-8.2)
[2022-11-20 09:29] LABS: HCG, SERUM QUALITATIVE NEGATIVE (NEGATIVE)
[2022-11-20] MEDS ORDERED: ONDANSETRON 4MG 2ML VIAL IV ONE (10:45)
[2022-11-20] MEDS ORDERED: SUCRALFATE SUSP 1GM/10ML UD PO ONE (10:50)
[2022-11-20] MEDS ORDERED: ONDA4TAB6 PO (12:03)
[2022-11-20 12:18] VITALS: BP 152/90
== END 2022-11-20 12:24 | disposition home or self-care (01) ==
LOC: M ED 07:53
DX: R10.11 Right upper quadrant pain (principal); K76.0 Fatty (change of) liver, not elsewhere classified; E28.2 Polycystic ovarian syndrome; E11.9 Type 2 diabetes mellitus without complications; E07.9 Disorder of thyroid, unspecified; Z88.8 Allergy status to other drugs, medicaments and biological substances; Z79.899 Other long term (current) drug therapy; Z79.890 Hormone replacement therapy; Z79.84 Long term (current) use of oral hypoglycemic drugs
CPT/HCPCS: 76705; 80048; 80076; 83690; 84703; 85025; 93005; 96374; 96375; 99284; J1885; J2405; J2765

== ENCOUNTER → 2023-01-04 | Outpatient (CLI) | payer OTHER ==
[~2023-01-04] MED LIST changes: +FLUT50SP17 PO; -FLUTISP PO; +ONDA4TAB6 PO
[2023-01-04 10:26] LABS: BASO # 0.1 10^3/uL (0.0-0.2); BASO % 0.9 % (0.0-1.0); EOS # 0.2 10^3/uL (0.0-0.5); EOS % 3.5 % (0.0-3.0); HEMATOCRIT 32.1 % (36.0-47.0); HEMOGLOBIN 9.7 g/dl (12.0-15.5); LYMPH # 2.3 10^3/uL (1.5-5.0); LYMPH % 33.3 % (24.0-44.0); MEAN CORPUSCULAR HEMOGLOBIN 24.9 pg (27.0-33.0); MEAN CORPUSCULAR HGB CONC 30.2 g/dl (32.0-36.5); MEAN CORPUSCULAR VOLUME 82.3 fl (80.0-96.0); MONO # 0.5 10^3/uL (0.0-0.8); MONO % 7.6 % (2.0-8.0); NEUTROPHILS # 3.8 10^3/uL (1.5-8.5); NEUTROPHILS % 54.3 % (36.0-66.0); PLATELET COUNT, AUTOMATED 312 10^3/uL (150-450); WHITE BLOOD COUNT 6.9 10^3/uL (4.0-10.0)
[2023-01-04 11:00] LABS: HEMOGLOBIN A1c 6.1 % (4.0-6.0)
== END ==
LOC: M WUC 08:44
PROVIDERS: ATTEND Physician Assistant
DX: D50.9 Iron deficiency anemia, unspecified (principal); E11.69 Type 2 diabetes mellitus with other specified complication

== ENCOUNTER → 2023-03-15 | Outpatient (REF) | payer BC, MEDICAID | LOC: M SFHCWAGY 10:17 | PROVIDERS: ATTEND Obstetrics & Gynecology | DX: Z01.419 Encounter for gynecological examination (general) (routine) without abnormal findings (principal) | CPT/HCPCS: 87624; G0123 ==

== ENCOUNTER → 2023-04-02 | Outpatient (CLI) | payer BC ==
[2023-04-02 10:17] LABS: BASO # 0.1 10^3/uL (0.0-0.2); BASO % 0.6 % (0.0-1.0); EOS # 0.2 10^3/uL (0.0-0.5); EOS % 1.9 % (0.0-3.0); HEMATOCRIT 37.6 % (36.0-47.0); HEMOGLOBIN 12.1 g/dl (12.0-15.5); LYMPH # 2.4 10^3/uL (1.5-5.0); LYMPH % 30.9 % (24.0-44.0); MEAN CORPUSCULAR HEMOGLOBIN 28.6 pg (27.0-33.0); MEAN CORPUSCULAR HGB CONC 32.2 g/dl (32.0-36.5); MEAN CORPUSCULAR VOLUME 88.9 fl (80.0-96.0); MONO # 0.6 10^3/uL (0.0-0.8); MONO % 7.9 % (2.0-8.0); NEUTROPHILS # 4.5 10^3/uL (1.5-8.5); NEUTROPHILS % 58.4 % (36.0-66.0); PLATELET COUNT, AUTOMATED 296 10^3/uL (150-450); RED BLOOD COUNT 4.23 10^6/uL (4.00-5.40); WHITE BLOOD COUNT 7.7 10^3/uL (4.0-10.0)
[2023-04-02 10:50] LABS: PERCENT SATURATION 31.6 % (13.2-45.0)
[2023-04-02 10:52] LABS: FREE T4 1.13 NG/DL (0.89-1.76)
[2023-04-02 10:53] LABS: THYROID STIMULATING HORMONE 1.996 uIU/ML (0.55-4.78)
== END ==
LOC: M LAB 09:51
PROVIDERS: ATTEND Physician Assistant
DX: E03.9 Hypothyroidism, unspecified (principal); D50.9 Iron deficiency anemia, unspecified

== ENCOUNTER → 2023-04-06 | Outpatient (CLI) | payer BC | LOC: M PLAIMG 15:27 | PROVIDERS: ATTEND Physician Assistant | DX: M16.0 Bilateral primary osteoarthritis of hip (principal) ==

== ENCOUNTER → 2023-04-20 | Outpatient (CLI) | payer BC | LOC: M WHC 09:46 | PROVIDERS: ATTEND Obstetrics & Gynecology | DX: Z12.31 Encounter for screening mammogram for malignant neoplasm of breast (principal); R10.2 Pelvic and perineal pain ==

== ENCOUNTER → 2023-07-25 | Outpatient (CLI) | payer BC ==
[~2023-07-25] MED LIST changes: -GABA-283 PO; +GABA-284 PO; +LORA-1041 PO; -LORA-674 PO
[2023-07-25 10:22] LABS: BASO # 0.1 10^3/uL (0.0-0.2); BASO % 0.6 % (0.0-1.0); EOS # 0.1 10^3/uL (0.0-0.5); EOS % 1.1 % (0.0-3.0); HEMATOCRIT 38.9 % (36.0-47.0); HEMOGLOBIN 13.1 g/dl (12.0-15.5); LYMPH # 2.3 10^3/uL (1.5-5.0); LYMPH % 25.9 % (24.0-44.0); MEAN CORPUSCULAR HEMOGLOBIN 31.3 pg (27.0-33.0); MEAN CORPUSCULAR HGB CONC 33.7 g/dl (32.0-36.5); MEAN CORPUSCULAR VOLUME 92.8 fl (80.0-96.0); MONO # 0.9 10^3/uL (0.0-0.8); NEUTROPHILS # 5.6 10^3/uL (1.5-8.5); NEUTROPHILS % 62.2 % (36.0-66.0); PLATELET COUNT, AUTOMATED 306 10^3/uL (150-450); RED BLOOD COUNT 4.19 10^6/uL (4.00-5.40)
[2023-07-25 10:49] LABS: PERCENT SATURATION 16.3 % (13.2-45.0)
[2023-07-25 10:52] LABS: FERRITIN 20.4 NG/ML (7.3-270.7)
== END ==
LOC: M WUC 08:13
PROVIDERS: ATTEND Physician Assistant
DX: D50.9 Iron deficiency anemia, unspecified (principal)

== ENCOUNTER → 2023-09-12 | Outpatient (CLI) | payer BC ==
[~2023-09-12] MED LIST changes: -ALLE1TAB23 PO; +FEXO-157 PO; -FLUT50SP17 PO; +FLUTISP PO
[2023-09-12 12:51] LABS: HEMOGLOBIN A1c 5.6 % (4.0-6.0)
[2023-09-12 13:02] LABS: ALBUMIN 3.7 G/DL (3.2-5.2); ALKALINE PHOSPHATASE 61 U/L (46-116); ALT/SGPT 19 U/L (7.0-40); AST/SGOT 11 U/L (<34); BILIRUBIN,TOTAL 0.5 MG/DL (0.3-1.2); BLOOD UREA NITROGEN 11 MG/DL (9-23); CALCIUM LEVEL 8.5 MG/DL (8.5-10.1); CARBON DIOXIDE LEVEL 26 MMOL/L (20-31); CHLORIDE LEVEL 106 MMOL/L (98-107); CHOLESTEROL LEVEL 161 MG/DL (<200); CHOLESTEROL RISK RATIO 2.71 (<5); CREATININE FOR GFR 0.78 MG/DL (0.55-1.30); GLOMERULAR FILTRATION RATE > 60.0 (>51); GLUCOSE, FASTING 88 MG/DL (60-100); HDL CHOLESTEROL 59.4 MG/DL (>40); LDL CHOLESTEROL 73.4 MG/DL (<100); NON-HDL-C 101.6 MG/DL; POTASSIUM SERUM 4.1 MMOL/L (3.5-5.1); SODIUM LEVEL 135 MMOL/L (136-145); TOTAL PROTEIN 6.5 G/DL (5.7-8.2); TRIGLYCERIDES LEVEL 141 MG/DL (<150)
[2023-09-12 13:05] LABS: TOTAL 25(OH) VITAMIN D 31.9 NG/ML (20.0-100.0)
[2023-09-12 13:06] LABS: FREE T4 1.04 NG/DL (0.89-1.76); THYROID STIMULATING HORMONE 1.908 uIU/ML (0.55-4.78)
== END ==
LOC: M PLALAB 07:37
PROVIDERS: ATTEND Physician Assistant
DX: E11.69 Type 2 diabetes mellitus with other specified complication (principal); E55.9 Vitamin D deficiency, unspecified; E03.9 Hypothyroidism, unspecified; Z13.220 Encounter for screening for lipoid disorders

== ENCOUNTER 2024-01-11 17:03 | Emergency (ER) | payer BC ==
[~2024-01-11] VITALS: Ht 160 cm; Wt 86.4 kg
[2024-01-11] MEDS ORDERED: GABA-282 PO (17:15)
[2024-01-11 19:01] VITALS: BP 137/77; TEMP 97.4; O2SAT 98
== END 2024-01-11 23:26 | disposition home or self-care (01) ==
LOC: M ED 17:03
DX: M51.36 Other intervertebral disc degeneration, lumbar region (principal); E11.9 Type 2 diabetes mellitus without complications; K21.9 Gastro-esophageal reflux disease without esophagitis; E03.9 Hypothyroidism, unspecified; D64.9 Anemia, unspecified; E78.5 Hyperlipidemia, unspecified; Z88.8 Allergy status to other drugs, medicaments and biological substances; Z79.899 Other long term (current) drug therapy

== ENCOUNTER → 2024-02-27 | Outpatient (CLI) | payer BC ==
[~2024-02-27] MED LIST changes: +GABA-282 PO; +ONDA-282 PO; -ONDA4TAB6 PO
== END ==
LOC: M WHC 07:57
PROVIDERS: ATTEND Physician Assistant
DX: R92.8 Other abnormal and inconclusive findings on diagnostic imaging of breast (principal)
CPT/HCPCS: 77066; G0279

== ENCOUNTER → 2024-04-04 | Outpatient (CLI) | payer BC | LOC: M RAD 09:20 | PROVIDERS: ATTEND Physician Assistant | DX: M79.89 Other specified soft tissue disorders (principal) ==

== ENCOUNTER → 2024-05-18 | Outpatient (CLI) | payer BC ==
[~2024-05-18] MED LIST changes: -FEXO-157 PO; +FEXO-63 PO
[2024-05-18 08:48] LABS: BASO % 0.4 % (0.0-1.0); EOS # 0.1 10^3/uL (0.0-0.5); HEMATOCRIT 36.6 % (36.0-47.0); HEMOGLOBIN 11.9 g/dl (12.0-15.5); LYMPH % 28.7 % (24.0-44.0); MEAN CORPUSCULAR HEMOGLOBIN 28.8 pg (27.0-33.0); MEAN CORPUSCULAR HGB CONC 32.5 g/dl (32.0-36.5); MEAN CORPUSCULAR VOLUME 88.6 fl (80.0-96.0); MONO # 0.5 10^3/uL (0.0-0.8); MONO % 7.7 % (2.0-8.0); NEUTROPHILS # 4.2 10^3/uL (1.5-8.5); NEUTROPHILS % 60.9 % (36.0-66.0); PLATELET COUNT, AUTOMATED 304 10^3/uL (150-450); RED BLOOD COUNT 4.13 10^6/uL (4.00-5.40); WHITE BLOOD COUNT 6.9 10^3/uL (4.0-10.0)
[2024-05-18 09:09] LABS: HEMOGLOBIN A1c 5.8 % (4.0-6.0)
[2024-05-18 09:17] LABS: ALBUMIN 3.7 G/DL (3.2-5.2); ALKALINE PHOSPHATASE 71 U/L (46-116); ALT/SGPT 18 U/L (7.0-40); AST/SGOT 12 U/L (<34); BILIRUBIN,TOTAL 0.3 MG/DL (0.3-1.2); BLOOD UREA NITROGEN 15 MG/DL (9-23); CALCIUM LEVEL 8.9 MG/DL (8.5-10.1); CARBON DIOXIDE LEVEL 27 MMOL/L (20-31); CHLORIDE LEVEL 107 MMOL/L (98-107); CREATININE FOR GFR 0.76 MG/DL (0.55-1.30); GLOMERULAR FILTRATION RATE > 60.0 (>51); GLUCOSE, FASTING 93 MG/DL (60-100); IRON (FE) 23 UG/DL (50-170); PERCENT SATURATION 5.8 % (13.2-45.0); POTASSIUM SERUM 4.1 MMOL/L (3.5-5.1); SODIUM LEVEL 137 MMOL/L (136-145); TOTAL IRON BINDING CAPACITY 397 UG/DL (250-425); TOTAL PROTEIN 7.2 G/DL (5.7-8.2)
[2024-05-18 09:19] LABS: FERRITIN 5.5 NG/ML (7.3-270.7); FREE T4 1.25 NG/DL (0.89-1.76); THYROID STIMULATING HORMONE 1.313 uIU/ML (0.55-4.78)
== END ==
LOC: M LAB 08:11
PROVIDERS: ATTEND Physician Assistant
DX: D50.9 Iron deficiency anemia, unspecified (principal)

== ENCOUNTER 2024-09-12 15:52 | Emergency (ER) | payer OTHER, BC ==
[~2024-09-12] VITALS: Ht 160 cm; Wt 83.3 kg
[~2024-09-12 15:52] MED LIST changes: +GABA-1172 PO; -GABA-282 PO
[2024-09-12 16:10] VITALS: TEMP 98.2
[2024-09-12] MEDS: NORCO, ANEXSIA 5/325MG TABLET (HYDROcodone/ACETAMINOPHEN) PO ONE (17:16)
[2024-09-12 18:00] VITALS: BP 145/80; O2SAT 97
[2024-09-12] MEDS ORDERED: HYDR-3713 PO (18:07)
== END 2024-09-12 18:26 | disposition home or self-care (01) ==
LOC: M ED 15:52 → EDBD 15:52 → M ED 18:26
DX: S20.219A Contusion of unspecified front wall of thorax, initial encounter (principal); S20.312A Abrasion of left front wall of thorax, initial encounter; V49.40XA Driver injured in collision with unspecified motor vehicles in traffic accident, initial encounter; E11.9 Type 2 diabetes mellitus without complications; D50.9 Iron deficiency anemia, unspecified; F41.9 Anxiety disorder, unspecified; F32.A Depression, unspecified; K21.9 Gastro-esophageal reflux disease without esophagitis; Z79.899 Other long term (current) drug therapy; Z79.02 Long term (current) use of antithrombotics/antiplatelets; Z79.1 Long term (current) use of non-steroidal anti-inflammatories (NSAID); Z88.8 Allergy status to other drugs, medicaments and biological substances; Z91.048 Other nonmedicinal substance allergy status; Y99.9 Unspecified external cause status; Y93.89 Activity, other specified; Y92.410 Unspecified street and highway as the place of occurrence of the external cause

== ENCOUNTER → 2024-10-23 | Outpatient (CLI) | payer BC ==
[~2024-10-23] MED LIST changes: +HYDR-3713 PO
[2024-10-23 13:24] LABS: HEMATOCRIT 36.3 % (36.0-47.0); HEMOGLOBIN 12.1 g/dl (12.0-15.5); MEAN CORPUSCULAR HEMOGLOBIN 31.5 pg (27.0-33.0); MEAN CORPUSCULAR HGB CONC 33.3 g/dl (32.0-36.5); MEAN CORPUSCULAR VOLUME 94.5 fl (80.0-96.0); PLATELET COUNT, AUTOMATED 284 10^3/uL (150-450); RED BLOOD COUNT 3.84 10^6/uL (4.00-5.40)
[2024-10-23 13:42] LABS: HEMOGLOBIN A1c 5.4 % (4.0-6.0)
[2024-10-23 13:54] LABS: IRON (FE) 91 UG/DL (50-170); PERCENT SATURATION 27.8 % (13.2-45.0); TOTAL IRON BINDING CAPACITY 327 UG/DL (250-425)
[2024-10-23 13:55] LABS: ALKALINE PHOSPHATASE 62 U/L (35-104); ALT/SGPT 30 U/L (7.0-40); AST/SGOT 16 U/L (<34); BILIRUBIN,TOTAL 0.3 MG/DL (0.3-1.2); BLOOD UREA NITROGEN 13 MG/DL (9-23); CALCIUM LEVEL 8.7 MG/DL (8.5-10.1); CARBON DIOXIDE LEVEL 28 MMOL/L (20-31); CHLORIDE LEVEL 102 MMOL/L (98-107); CREATININE FOR GFR 0.82 MG/DL (0.55-1.30); FERRITIN 16.3 NG/ML (7.3-270.7); FREE T4 1.47 NG/DL (0.89-1.76); GLOMERULAR FILTRATION RATE > 60.0 (>51); GLUCOSE, FASTING 87 MG/DL (60-100); POTASSIUM SERUM 4.2 MMOL/L (3.5-5.1); SODIUM LEVEL 143 MMOL/L (136-145); THYROID STIMULATING HORMONE 1.511 uIU/ML (0.55-4.78); TOTAL PROTEIN 7.1 G/DL (5.7-8.2)
== END ==
LOC: M PLALAB 08:09
PROVIDERS: ATTEND Nurse Practitioner Family
DX: E11.69 Type 2 diabetes mellitus with other specified complication (principal); E03.9 Hypothyroidism, unspecified; D50.9 Iron deficiency anemia, unspecified

== ENCOUNTER → 2025-01-13 | Outpatient (CLI) | payer BC ==
[2025-01-13 10:58] LABS: HEMATOCRIT 38.6 % (36.0-47.0); HEMOGLOBIN 12.8 g/dl (12.0-15.5); MEAN CORPUSCULAR HEMOGLOBIN 31.8 pg (27.0-33.0); MEAN CORPUSCULAR HGB CONC 33.2 g/dl (32.0-36.5); PLATELET COUNT, AUTOMATED 309 10^3/uL (150-450); RED BLOOD COUNT 4.02 10^6/uL (4.00-5.40); WHITE BLOOD COUNT 6.1 10^3/uL (4.0-10.0)
[2025-01-13 11:21] LABS: PERCENT SATURATION 9.5 % (13.2-45.0)
[2025-01-13 11:22] LABS: CREATININE, URINE 158.8 MG/DL; MAU/CREAT RATIO 1.8 MCG/MG (0.0-30.0)
[2025-01-13 11:23] LABS: FERRITIN 12.8 NG/ML (7.3-270.7)
[2025-01-13 11:24] LABS: FREE T4 1.39 NG/DL (0.89-1.76); THYROID STIMULATING HORMONE 1.606 uIU/ML (0.55-4.78)
== END ==
LOC: M PLALAB 09:02
PROVIDERS: ATTEND Nurse Practitioner Family
DX: D50.9 Iron deficiency anemia, unspecified (principal); E11.69 Type 2 diabetes mellitus with other specified complication; E03.9 Hypothyroidism, unspecified

== ENCOUNTER → 2025-07-14 | Outpatient (CLI) | payer BC ==
[~2025-07-14] MED LIST changes: +LORA-1164 PO; -LORA-622 PO
[2025-07-14 10:58] LABS: PLATELET COUNT, AUTOMATED 261 10^3/uL (150-450)
[2025-07-14 11:23] LABS: CHOLESTEROL LEVEL 153.0 MG/DL (<200); CHOLESTEROL RISK RATIO 3.01 (<5); IRON (FE) 44.0 UG/DL (50-170); LDL CHOLESTEROL 68.9 MG/DL (<100); MAGNESIUM LEVEL 1.9 MG/DL (1.8-2.4); NON-HDL-C 102.3 MG/DL; PERCENT SATURATION 13.0 % (13.2-45.0); TRIGLYCERIDES LEVEL 167.0 MG/DL (<150)
[2025-07-14 11:25] LABS: FREE T4 1.29 NG/DL (0.89-1.76)
[2025-07-14 11:30] LABS: ESTIMATED AVERAGE GLUCOSE 108.0 MG/DL (60-110)
== END ==
LOC: M PLALAB 08:04
PROVIDERS: ATTEND Nurse Practitioner Family
DX: K21.9 Gastro-esophageal reflux disease without esophagitis (principal); D50.9 Iron deficiency anemia, unspecified; E78.2 Mixed hyperlipidemia; E03.9 Hypothyroidism, unspecified; E11.69 Type 2 diabetes mellitus with other specified complication

== ENCOUNTER → 2025-09-10 | Outpatient (CLI) | payer BC | LOC: M WHC 13:25 | PROVIDERS: ATTEND Obstetrics & Gynecology | DX: Z12.31 Encounter for screening mammogram for malignant neoplasm of breast (principal); R92.323 Mammographic fibroglandular density, bilateral breasts | CPT/HCPCS: 77066; 87624; G0123; G0279 ==

== ENCOUNTER → 2025-09-10 | Outpatient (REF) | payer BC ==
[2025-09-12 13:57] LABS: HPV APTIMA Not Detected (Not Detected)
== END ==
LOC: M SFHCWAGY 17:40
PROVIDERS: ATTEND Obstetrics & Gynecology
DX: Z12.4 Encounter for screening for malignant neoplasm of cervix (principal)
CPT/HCPCS: 87624; G0123